=== PATIENT | male | born 1960 | race Caucasian/White ===

== ENCOUNTER 2020-03-25 09:10 | Outpatient (REF) | payer BC, SELFPAY ==
[2020-03-25 11:39] LABS: Alanine Aminotransferase 33 U/L (0-40); Albumin Level 4.4 g/dL (3.5-5.0); Alkaline Phosphatase 71 U/L (39-117); Anion Gap 13 (12-20); Aspartate Amino Transferase 20 U/L (5-37); Bilirubin Total 0.7 mg/dL (0.0-1.0); Blood Urea Nitrogen 21 mg/dL (9-16); Carbon Dioxide 27 mmol/L (22-29); Chloride 105 mmol/L (96-108); Cholesterol 205 mg/dL; Estimated Glomerular Filt Rate > 60; Glucose Fasting 94 mg/dL (60-99); HDL Cholesterol 47 mg/dL; LDL Cholesterol Calculated 133 mg/dl; Potassium 4.7 mmol/l (3.3-5.1); Sodium 140 mmol/L (135-145); Total Protein 7.3 g/dL (6.5-8.0); Triglycerides 128 mg/dL
[2020-03-25 11:59] LABS: TSH reflex Free T4 2.14 mIU/mL (0.32-4.0)
[2020-03-25 12:05] LABS: Prostate Specific Antigen 2.07 ng/mL (<0.05-4.0); Vitamin D 25-OH Total 26.1 ng/mL (>30)
== END 2020-03-25 09:11 | disposition home or self-care (01) ==
LOC: HO.HMGCLDS 09:10
PROVIDERS: PCP Nurse Practitioner Family; Visit Provider Nurse Practitioner Family
DX: E78.5 Hyperlipidemia, unspecified (principal); Z12.5 Encounter for screening for malignant neoplasm of prostate; Z13.1 Encounter for screening for diabetes mellitus; Z13.21 Encounter for screening for nutritional disorder; Z13.29 Encounter for screening for other suspected endocrine disorder
CPT/HCPCS: 36415; 80053; 80061; 82306; 84153; 84443

== ENCOUNTER → 2020-06-11 10:07 | Outpatient (BNVA) | payer BC, SELFPAY | PROVIDERS: PCP Nurse Practitioner Family; Referring Provider Nurse Practitioner Family; Visit Provider Urology | DX: Z76.89 Persons encountering health services in other specified circumstances (principal) ==

== ENCOUNTER → 2020-07-14 09:26 | Outpatient (BNVA) | payer BC, SELFPAY | PROVIDERS: Visit Provider Urology ==

== ENCOUNTER → 2021-02-11 11:20 | Outpatient (BNVA) | payer BC, SELFPAY | PROVIDERS: PCP Nurse Practitioner Family; Visit Provider Urology | DX: N40.1 Benign prostatic hyperplasia with lower urinary tract symptoms (principal); N13.8 Other obstructive and reflux uropathy; R35.1 Nocturia | CPT/HCPCS: 51798 ==

== ENCOUNTER 2021-02-22 11:22 | Outpatient (REF) | payer BC, SELFPAY ==
[2021-02-22 13:58] LABS: MANUAL DIFF FLAG NO
[2021-02-22 14:02] LABS: Basophils Percent Auto 0.5 % (0-2); Eosinophils Absolute Auto 0.1 X10*3/uL (0.0-0.4); Eosinophils Percent Auto 1.3 % (0-4); Hematocrit 45.9 % (42-52); Hemoglobin 15.3 g/dl (14.0-18.0); Imm Gran Abs Auto 0.01 X10*3/uL (0.00-0.03); Imm Gran Pct Auto 0.2 % (0.0-0.4); Lymphocytes Absolute Auto 2.4 X10*3/uL (1.2-4.9); Lymphocytes Percent Auto 38.4 % (20-40); Mean Corpuscular HGB Conc 33.3 g/dl (31.0-36.0); Mean Corpuscular Hemoglobin 31.7 pg (27.0-33.0); Mean Platelet Volume 9.3 fL (9.4-12.4); Monocytes Absolute Auto 0.6 X10*3/uL (0.1-1.2); Monocytes Percent Auto 9.4 % (2-11); Neutrophils Absolute Auto 3.1 X10*3/uL (2.0-8.3); Neutrophils Percent Auto 50.2 % (45-73); Platelet Count 220 X10*3/uL (160-400); Red Blood Count 4.83 X10*6/uL (4.60-5.80); Red Cell Distribution Width 13.2 % (11.0-16.0); White Blood Count 6.1 X10*3/uL (4.8-10.8)
[2021-02-22 14:51] LABS: Erythrocyte Sedimentation Rate 11 MM/HR (0-15)
[2021-02-22 14:55] LABS: Alanine Aminotransferase 23 U/L (0-40); Albumin Level 4.6 g/dL (3.5-5.0); Alkaline Phosphatase 70 U/L (39-117); Anion Gap 12 (12-20); Aspartate Amino Transferase 17 U/L (5-37); Bilirubin Total 0.7 mg/dL (0.0-1.0); Blood Urea Nitrogen 18 mg/dL (9-16); C Reactive Protein 0.31 mg/dL (< or = 0.50); Calcium 10.5 mg/dL (8.4-10.2); Carbon Dioxide 25 mmol/L (22-29); Chloride 107 mmol/L (96-108); Estimated Glomerular Filt Rate > 60; Glucose Random 90 mg/dL (60-115); Potassium 4.4 mmol/L (3.3-5.1); Sodium 140 mmol/L (135-145); TSH reflex Free T4 2.45 uIU/mL (0.32-4.0); Total Protein 7.4 g/dL (6.5-8.0); Vitamin D 25-OH Total 26.1 ng/mL (>30)
[2021-02-22 14:58] LABS: Folate 11.9 ng/mL (> or = 4.0); Vitamin B12 560 pg/mL (200-900)
[2021-02-22 15:14] LABS: Ferritin 584 ng/mL (20-250)
[2021-02-23 14:41] LABS: Lyme Abs Screen <0.90 index
[2021-02-24 10:41] LABS: Antibody to SS-A Antigen <1.0 NEG AI (<1.0 NEG); Antibody to SS-B Antigen <1.0 NEG AI (<1.0 NEG)
[2021-02-24 23:06] LABS: Anti Nuclear Antibody Screen POSITIVE (NEGATIVE)
[2021-02-27 13:32] LABS: Testosterone, Free 45.6 pg/mL (35.0-155.0); Testosterone, Total 306 ng/dL (250-1100)
[2021-03-01 22:52] LABS: Prot Elec - Albumin 4.3 g/dL (3.8-4.8); Prot Elec - Alpha1 0.3 g/dL (0.2-0.3); Prot Elec - Alpha2 0.7 g/dL (0.5-0.9); Prot Elec - Beta 1 0.5 g/dL (0.4-0.6); Prot Elec - Beta 2 0.4 g/dL (0.2-0.5); Prot Elec - Total Protein 7.2 g/dL (6.1-8.1)
[2021-03-02 14:55] LABS: IgA 328 mg/dL (70-320); IgG 1064 mg/dL (600-1540); IgM 67 mg/dL (50-300)
== END 2021-02-22 11:23 | disposition home or self-care (01) ==
LOC: HO.HMGCLDS 11:22
PROVIDERS: PCP Nurse Practitioner Family; Visit Provider Nurse Practitioner Family
DX: Z20.822 Contact with and (suspected) exposure to COVID-19 (principal); R53.83 Other fatigue
CPT/HCPCS: 80053; 82306; 82607; 82728; 82746; 82784; 84165; 84402; 84403; 84443; 85025; 85652; 86038; 86039; 86140; 86235; 86334; 86617; 86618; U0003; U0005

== ENCOUNTER 2021-02-25 13:10 | Outpatient (REF) | payer BC, SELFPAY | END 2021-02-25 13:11 | disposition home or self-care (01) | LOC: HO.HMGCLDS 13:10 | PROVIDERS: PCP Nurse Practitioner Family; Visit Provider Nurse Practitioner Family | DX: R79.89 Other specified abnormal findings of blood chemistry (principal) | CPT/HCPCS: 36415; 81256 ==

== ENCOUNTER → 2021-03-18 08:33 | Outpatient (REF) | payer BC, SELFPAY ==
--- NOTE | 2021-03-18 08:36 | CA_ITS ---
Transthoracic Echocardiogram Patient (Last, First, Middle): Edgardo Rios C Gender: Male Date of : 1960 Age: 60 Procedure Date: 03/18/2021 Procedure Type: Transthoracic Echocardiogram Location: OP Height: 182.88 cm Weight: 113.4 kg BSA: 2.34 m2 Heart Rate: bpm BP: 138 / 80 mmHg Supervisor Cell Efficiency: Referring MD: Hussein Stringer 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 Normal LV systolic function with grade 1 diastolic dysfunction 2. Normal cardiac valvular Doppler 3. Normal RV systolic pressure 4. No gross pericardial effusion Findings Left Ventricle Normal left ventricular size and systolic function. There is mildly increased left ventricular wall thickness. The visually estimated ejection fraction is between 55-60%. Regional wall motion abnormalities can not be excluded due to suboptimal endocardial definition. Spectral Doppler is indicative of an impaired relaxation filling pattern. E/E prime ratio is <8, consistent with normal filling pressures. Evidence suggests grade I (mild) diastolic dysfunction. Right Ventricle Normal right ventricular cavity size. Atria The left atrium is mildly dilated. There is lipomatous hypertrophy of the interatrial septum. There is no evidence of interatrial shunt. The right atrium was not well visualized. Aortic Valve The aortic valve was not well visualized. There is no aortic valve stenosis. There is no aortic valve regurgitation. Mitral Valve Likely normal mitral valve structure and function. There is trace mitral valve regurgitation. There is no mitral valve stenosis. Pulmonic Valve The pulmonic valve was not well visualized. Tricuspid Valve Likely normal tricuspid valve structure and function. There is trace tricuspid valve regurgitation. The right ventricular systolic pressure is normal. The right ventricular systolic pressure is 25 mmHg. Normal right atrial pressure. There is no evidence of pulmonary hypertension. Great Vessels All visible segments of the aorta are normal in size. The pulmonary artery was not well visualized. Venous The inferior vena cava is normal in size and collapses greater than 50% with inspiration. Pericardium/Pleural There is no evidence of pericardial effusion. Prior Study Comparison No previous study in the last 5 years for comparison Measurements 2D Linear Measurements IVSd: 1.17 0.6-0.9/0.6-1.0 cm LVIDd: 5.02 3.9-5.3/4.2-5.9 cm LVIDs: 3.16 2.0-3.6 cm LVPWd: 1.24 0.7-1.1 cm Ao Root: 3.28 2.1-3.5 cm LV Mass: 294.19 67-162/88-224 g LVOT Diam: 2.46 3.0+(-)1.3 cm Mitral Valve MV Pk E: 0.71 MV PK A: 0.74 MV Decel Time: 206.56 E/A: 0.96 Decel Lamar: 3.42 Aortic Valve AoV Pk Chris: 1.24 AoV Mn Chris: 0.88 AoV VTI: 0.29 AoV Pk Grad: 6.11 Aov Mn Grad: 3.52 LVOT LVOT Pk Chris: 0.95 LVOT Mn Chris: 0.61 LVOT VTI: 0.22 LVOT Pk Grad: 3.61 LVOT Mn Grad: 1.83 LVOT Diam: 2.46 LVOT Area: 4.74 Diastolic Function MV Pk E: 0.71 MV Pk A: 0.74 E/A: 0.96 Tricuspid Valve TR Pk Chris: 2.37 TR Pk Grad: 22.44 RA Press: 3.00 RVSP: 25.00 Great Vessels Aorta Ao Root-2D: 3.28 2.0-3.7 cm Ao Asc: 3.46 2.1-3.4 cm Pulmonary Valve PV Pk Chris: 1.05 Peak PV Grad: 4.42 Updated in Other Vendor System with Status of Final London Roy MD electronically signed on 03/18/2021 4:07:04 PM with status of Final
== END ==
LOC: HO.CARD 08:33
PROVIDERS: Visit Provider Nurse Practitioner Family
DX: R07.89 Other chest pain (principal); I45.3 Trifascicular block; I10 Essential (primary) hypertension
CPT/HCPCS: 93306

== ENCOUNTER → 2021-03-21 08:01 | Outpatient (REF) | payer BC, SELFPAY ==
--- NOTE | ~2021-03-21 | NM_ITS ---
Exercise Myocardial perfusion study Indication: Dizziness with risk factors to evaluate for myocardial ischemia Technique: The patient was brought in for an exercise perfusion study on 03/21/2021. Patient performed exercise as per Vadim protocol and was injected 40 mCi of sestamibi was given intravenously one target HR was achieved. Images were obtained using the SPECT gamma camera interlaced with the gating device. Images were obtained in supine position. Resting perfusion study was performed on 03/23/2021. Patient was administered 40 mCi of sestamibi intravenously at rest. Images were then obtained in supine position. Images obtained with and without CT attenuation. Total DLP 125 mGy-cm. Images were processed with the software and compared side to side in short axis, horizontal long axis and vertical long axis views. Findings: The stress perfusion study showed nonattenuated images show mildly reduced uptake in the inferior wall of the LV myocardium. Attenuation corrected images show normal uptake of radiotracer in all segments of LV. The gated study shows normal LV systolic function with calculated LVEF of 70%. LV cavity is normal in size. The gated study shows normal systolic wall thickening and contraction of all segments. There is no transient ischemic dilation. Resting study shows no change in perfusion pattern compared to stress perfusion study. Gating at rest reveals normal systolic wall motion with ejection fraction at 60%. The findings are consistent with normal myocardial perfusion. NM/NM cardiolite stress test Impression: 1. Normal myocardial perfusion 2. Gated LVEF is 70% 3. Transient ischemic dilatation not present Stress EKG is negative for ischemia
--- NOTE | 2021-03-21 08:00 | CA_ITS ---
Acquisition Time: 2021-03-21 08:11:57 Total Exercise Time: 00:07:08 Test Indications: Abnormal ECG Medications: SEE CHART Protocol: BENITA Max HR: 139 BPM 87% of Pred: 158 BPM Max BP: 188/090 mmHG Max Work Load: 8.7 METS Exercise stress test with exercise 7 min 8 sec of Benita protocol, without anginal symptoms, with isolated PVC, with normotensive response to exercise, without EKG changes meeting criteria for ischemia. Nuclear images pending. Test reviewed with Dr Snow. Referred By: Hussein Stringer Overread By: GER ROSENBERG
== END ==
LOC: HO.CARD 08:01
PROVIDERS: Visit Provider Nurse Practitioner Family
DX: R07.89 Other chest pain (principal); I10 Essential (primary) hypertension
CPT/HCPCS: 78452; 93017; A9500

== ENCOUNTER 2021-09-13 09:06 | Day surgery (SDC) | payer BC, SELFPAY ==
--- NOTE | 2021-09-12 10:54 | P.CONAN_ITS ---
Documented by User: Lana Dutta NP 09/12/21 10:57 HPI - Anesthesia Eval Consult details Narrative: 61yo M for ?Upper Endoscopy and Colonoscopy Cardiac optimized (seen for abnormal EKG) [facility] Active Problems Active Problems: All Active Problems (Updated 09/08/21 @ 16:07 by Jamila Jackson, RN) Physical exam (Acute) Nocturia more than twice per night (Acute) BPH w urinary obs/LUTS (Acute) Urinary hesitancy (Acute) Bilateral nephrolithiasis (Acute) Contact dermatitis (Acute) Chest discomfort (Acute) Anterior fascicular block, posterior fascicular block and incomplete right bundle branch block (RBBB) (Acute) Fatigue (Acute) Elevated ferritin (Chronic) Positive ALBERTO (antinuclear antibody) (Acute) Physical exam (Acute) Screening PSA (prostate specific antigen) (Acute) HTN (hypertension) (Acute) Past Medical History Medical History (Updated 09/08/21 @ 16:07 by Jamila Jackson RN) Barretts esophagus BPH (benign prostatic hyperplasia) Chronic lower back pain Dyslipidemia HTN (hypertension) Hyperparathyroidism Lung nodule Obesity Renal cyst Serum calcium elevated Trifascicular block Family History Family History Father ALS (amyotrophic lateral sclerosis) Dementia Mother High cholesterol HTN (hypertension) COPD (chronic obstructive pulmonary disease) Diverticulitis Maternal Grandmother Myocardial infarction Breast cancer Maternal Aunt Multiple sclerosis Paternal Aunt Multiple sclerosis Surgical History Surgical History Cyst of face Fusion of lumbar spine History of endoscopy History of sigmoidoscopy Social History Social History Household Members: Spouse Housing: House Alcohol intake: current Alcohol intake frequency: holidays/special occasions only Patient Tobacco Use Status: Never used Tobacco e-Cigarette/Vaping Use: Never Used Second Hand Smoke Exposure: No Use of substances other than those prescribed or required for medical reasons: No Are you DNR?: No Advance Directives: No Advance Directives Information Provided: Yes service: No Current occupational status: retired Meds Allergies Allergy/AdvReac Type Severity Reaction Status Date / Time penicillin V Allergy Severe Swelling Verified 09/13/21 09:32 pet dander Allergy Intermediate Itchy Eyes Uncoded 09/08/21 16:08 trees Allergy Intermediate Itching Uncoded 09/08/21 16:08 Home Medications Medication Instructions Recorded Confirmed Last Taken Type apple cider vinegar 09/08/21 Unknown History turmeric 09/08/21 09/08/21 Unknown History Exam Exam Date and Time: September 12, 2021 1054 Pertinent Lab Results Pertinent Lab Results: Laboratory Tests 02/22/21 02/22/21 11:35 11:35 WBC 6.1 Hgb 15.3 Hct 45.9 Plt Count 220 Sodium 140 Potassium 4.4 Chloride 107 Carbon Dioxide 25 BUN 18 H Creatinine 0.99 Narrative Narrative: EKG, per cardiac clearance note, showed anterior fascicular block, posterior fascicular, and incomplete RBBB ECHO 02/2021 Conclusions: - 1. Normal LV systolic function with grade 1 diastolic? dysfunction? 2. Normal cardiac valvular Doppler ? 3. Normal RV systolic pressure ? 4. No gross pericardial effusion ?? NM cardiolite stress test 02/2021 Impression: ? 1.? Normal myocardial perfusion 2.? Gated LVEF is 70% 3. Transient ischemic dilatation not present ? Stress EKG is negative for ischemia Assessment and Plan Assessment Anesthesia Assessment: Chart Reviewed Documented by User: Kj Greenberg MD 09/13/21 15:43 HPI - Anesthesia Eval Consult details Narrative: 61yo M for ?Upper Endoscopy and Colonoscopy Cardiac optimized (seen for abnormal EKG) [facility] Past Medical History Medical History (Updated 09/08/21 @ 16:07 by Jamila Jackson RN) Barretts esophagus BPH (benign prostatic hyperplasia) Chronic lower back pain Dyslipidemia HTN (hypertension) Hyperparathyroidism Lung nodule Obesity Renal cyst Serum calcium elevated Trifascicular block Family History Family History Father ALS (amyotrophic lateral sclerosis) Dementia Mother High cholesterol HTN (hypertension) COPD (chronic obstructive pulmonary disease) Diverticulitis Maternal Grandmother Myocardial infarction Breast cancer Maternal Aunt Multiple sclerosis Paternal Aunt Multiple sclerosis Family history of problems with anesthesia: No Surgical History Surgical History Cyst of face Fusion of lumbar spine History of endoscopy History of sigmoidoscopy History of Problems with Anesthesia: No Social History Social History Household Members: Spouse Housing: House Alcohol intake: current Alcohol intake frequency: holidays/special occasions only Patient Tobacco Use Status: Never used Tobacco e-Cigarette/Vaping Use: Never Used Second Hand Smoke Exposure: No Use of substances other than those prescribed or required for medical reasons: No Are you DNR?: No Advance Directives: No Advance Directives Information Provided: Yes service: No Current occupational status: retired Meds Allergies Allergy/AdvReac Type Severity Reaction Status Date / Time penicillin V Allergy Severe Swelling Verified 09/13/21 09:32 pet dander Allergy Intermediate Itchy Eyes Uncoded 09/08/21 16:08 trees Allergy Intermediate Itching Uncoded 09/08/21 16:08 Home Medications Medication Instructions Recorded Confirmed Last Taken Type apple cider vinegar 09/08/21 Unknown History turmeric 09/08/21 09/08/21 Unknown History Exam Airway Mallampati Class: I TM Dist: >3cm Neck ROM: Full Loose/Missing/Broken Teeth: Yes (Chipped teeth ) Heart: rrr Lungs: distant breath sounds Assessment and Plan Assessment Anesthesia Assessment: Anesthesia Plan Discussed Final Anesthetic Review Family History of Problems with Anesthesia: No History of Problems with Anesthesia: No NPO: Yes ASA Class: III Final Preanesthetic Review: No Changes in Pt Med Stat, Meds/Allgs Chart Reviewed, Consent Obtained/Reviewed and Anes Risks/Benef Reviewed Patient Risk: Intermediate Procedure Risk: Intermediate Anesthetic Plan Anesthetic Plan: MAC: Disposition: Standard PACU
[2021-09-13 09:34] VITALS: BMI 37.3
[2021-09-13 09:38] VITALS: BP 164/78; PULSE 95; RESP 16; TEMP 36.6; O2SAT 97
[2021-09-13] MEDS: Lactated Ringers 1,000 ML 100 ML IVCONT (10:21)
--- NOTE | 2021-09-13 10:59 | MHC.SHP ---
Pre-Procedural Eval Section A Date of Service: 09/13/21 Section B Chief Complaint: Castro's, Screening Details of Present Illness: see h&p no changes Relevant Family History (Specify if Yes): No Relevant Social History: None Present Medications: see Short Stay Collaborative assessment Medical History: No relevant PMH History of Previous Operations: No relevant previous surgery Allergies: Allergies Allergy/AdvReac Type Severity Reaction Status Date / Time penicillin V Allergy Severe Swelling Verified 09/13/21 09:32 pet dander Allergy Intermediate Itchy Eyes Uncoded 09/08/21 16:08 trees Allergy Intermediate Itching Uncoded 09/08/21 16:08 Review of Systems Sugical H&P ROS: Negative: Constitution, Cardiovascular, Respiratory, Neurological, Psychiatric, Hem-Onc, Allergic/Immunologic, Gastrointestinal, Genitourinary, Musculoskeletal, Integumentary, Endocrine and Eyes/Ears/Nose/Throat Exam Surgical H&P Exam: Normal: HEENT, Normal: Heart, Normal: Lungs, Normal: Extremities, Normal: Abdomen, Normal: Skin and Normal: Neurological Plan Diagnosis/Plan: Unchanged I have reviewed the history and physical and performed a pertinent physical examination on my patient. No changes have occurred unless specified.
[2021-09-13 12:06] VITALS: BP 104/51; PULSE 88; TEMP 36.3; O2SAT 97
--- NOTE | 2021-09-13 12:08 | PM.OP ---
Brief Operative Note Date of Service: 09/13/21 Pre-op diagnosis: barretts, screening Post-op diagnosis: same (colon polyp) Procedure: egd,colon Surgeon: Chava Thompson Anesthesia: MAC Was an Electrical Accessories Ii Assembler used for this Procedure?: No Estimated blood loss (mL): 5 Pathology: other (see req) Condition: stable Disposition: PACU
--- NOTE | 2021-09-13 12:12 | PC.NURSE ---
md rosa by bedside speaking to patient.
[2021-09-13 12:20] VITALS: BP 136/79; PULSE 98; TEMP 36.9; O2SAT 95
--- NOTE | 2021-09-13 12:24 | PC.NURSE ---
c/o left eye pain. light hurting eye. no pain prior to procedure. hard to open and light hurts patients eye. korey po challenge. call out to anesthesia. 12/02.
--- NOTE | 2021-09-13 12:26 | PC.NURSE ---
md le by bedside evaluating patients eye. redness noted to sclera.
[2021-09-13] MEDS: Tetracaine HCl/PF 0.5% Oph Sol 4 ML DROPS 3 DROP EYE-LEFT ×3 (12:33→12:36)
[2021-09-13 12:35] VITALS: PULSE 97; O2SAT 98
[2021-09-13] MEDS: Erythromycin Base 0.5% Oph Oin 1 GM TUBE 1 CM EYE-LEFT (12:39)
[2021-09-13 12:46] VITALS: BP 119/64; PULSE 87; O2SAT 96
--- NOTE | 2021-09-13 12:58 | OP_ITS ---
SURGEON: Chava Thompson MD INDICATIONS: 1. Castro esophagus. 2. Colon cancer screening. PREOPERATIVE DIAGNOSIS: POSTOPERATIVE DIAGNOSIS: PROCEDURE PERFORMED: Upper endoscopy with biopsy, colonoscopy to the terminal ileum with snare polypectomy. ESTIMATED BLOOD LOSS: COMPLICATIONS: ANESTHESIA: ASSISTANTS: SPECIMENS: MEDICATIONS: Monitored anesthesia care. DESCRIPTION OF PROCEDURE: History and physical were performed. The risks and benefits of the procedure were explained to the patient. An informed consent was obtained. The patient was placed in the left lateral decubitus position. The Olympus video gastroscope was introduced into the esophagus, stomach, and duodenum. Examination was performed and the scope was removed. He tolerated the procedure well. He was repositioned for colonoscopy. Digital rectal exam was performed and was found to be normal. The Olympus pediatric video colonoscope was introduced into the rectum and advanced to the cecum without difficulty. The cecum was identified by transillumination, palpation, and identification of the ileocecal valve. Examination was performed. The scope was removed. He tolerated the procedure well and was taken to recovery area in stable condition. FINDINGS: UPPER ENDOSCOPY: Esophagus: There was a 1 cm length of Castro esophagus with no raised lesions or ulcerated areas. Biopsies were obtained from the esophagus at 39 cm. Stomach: The stomach showed some mild nonspecific erythema. Biopsies were obtained from the antrum to evaluate for H pylori. Duodenum: The bulb and second portion were normal. Biopsies were obtained from the second portion. COLONOSCOPY: The terminal ileum was normal. This was biopsied. The visualized colonic mucosa was normal. In the hepatic flexure was a 6 mm polyp, which was removed with a cold snare and recovered via suction. Random sigmoid biopsies were obtained because of the patient's history of diarrhea. No other polyps were identified. The quality of prep was good. Retroflexed examination showed some moderate-sized internal hemorrhoids. IMPRESSION: 1. Castro esophagus. 2. Colon polyp. RECOMMENDATION: Follow up the biopsy results. MD ANTHONY Witt/AYAKA / [id number]
== END 2021-09-13 13:20 | disposition home or self-care (01) ==
PROVIDERS: PCP Nurse Practitioner Family; Visit Provider Internal Medicine Gastroenterology
PROC: (CPT 45385; principal; 2021-09-13 10:20)
DX: Z12.11 Encounter for screening for malignant neoplasm of colon (principal); D12.3 Benign neoplasm of transverse colon; K64.8 Other hemorrhoids; K22.70 Barrett's esophagus without dysplasia; K29.80 Duodenitis without bleeding; K21.9 Gastro-esophageal reflux disease without esophagitis; I10 Essential (primary) hypertension; R73.03 Prediabetes; E78.00 Pure hypercholesterolemia, unspecified; E83.119 Hemochromatosis, unspecified; R91.8 Other nonspecific abnormal finding of lung field; D89.9 Disorder involving the immune mechanism, unspecified; Z79.899 Other long term (current) drug therapy
CPT/HCPCS: 45385; 43239; 88305; 88342; J2370; J3010

== ENCOUNTER 2022-01-24 09:52 | Outpatient (REF) | payer BC, SELFPAY ==
--- NOTE | ~2022-01-24 | US_ITS ---
EXAMINATION: US RETROPERITONEAL LIMITED (RENAL ONLY) CLINICAL INFORMATION: Calculus of kidney. COMPARISON: US retroperitoneal limited (renal only) 05/26/2020. CT abdomen and pelvis without contrast 07/14/2019. Ultrasound abdomen complete 08/05/2015. TECHNIQUE: Real-time imaging of the kidneys. FINDINGS: RIGHT KIDNEY: 13.7 x 5.3 x 5.7 cm (SAG x AP x TRV). The kidney is normal in size, contour, and echogenicity. Renal cortical thickness is normal. No renal calculi or hydronephrosis. At the lower pole, a 1.5 cm maximal diameter anechoic, simple cyst is seen. LEFT KIDNEY: 14.6 x 6.0 x 5.7 cm (SAG x AP x TRV). The kidney is normal in size, contour, and echogenicity. Renal cortical thickness is normal. At the interpolar aspect, a 6 mm nonobstructing calculus is seen, with twinkle artifact. No hydronephrosis. At the lower pole, 2.0 cm, 2.2 cm and 1.2 cm in maximal diameter anechoic, simple cysts are seen. US/US renal BI IMPRESSION: 1. A 6 mm nonobstructing left renal calculus is seen. There is no right renal calculus. No hydronephrosis is noted bilaterally. 2. There are multiple benign, simple bilateral renal cysts. No imaging follow-up is recommended for these.
== END 2022-01-24 09:53 | disposition home or self-care (01) ==
LOC: HO.HMGCX 09:52
PROVIDERS: PCP Nurse Practitioner Family; Visit Provider Urology
DX: N20.0 Calculus of kidney (principal)
CPT/HCPCS: 76775

== ENCOUNTER 2022-02-10 11:29 | Outpatient (AMB) | payer BC, SELFPAY ==
--- NOTE | 2022-02-09 12:33 | A.OFFVIS_ITS ---
Intake Intake Visit Reasons: 1 year F/U US Results Intake Note: Patient is present for yearly ultrasound and pvr follow up post void residual: 56ml Alternative Dispute Resolution Mediator Required: No Accompanied by: Self / Same As Patient Allergies penicillin V Allergy (Severe, Verified 07/31/23 14:41) Swelling pet dander Allergy (Intermediate, Uncoded 07/31/23 14:41) Itchy Eyes trees Allergy (Intermediate, Uncoded 07/31/23 14:41) Itching HPI HPI Comments History of Present Illness Details Presley is a very pleasant male. He is seen for the following urologic conditions - lower urinary tract symptoms - nocturia - nephrolithiasis - renal cyst PVR 50 cc Emptying bladder with tamsulosin Continue with yearly review Lower Urinary Tract Symptoms: Current visit is for further evaluation of lower urinary tract symptoms particularly weakness of stream and nocturia Current treatment includes tamsulosin Prior treatments include none. Prostate Symptom Score Mild (0-8), Bother 2, PVR runs in range of 50-100 cc Symptoms include weak stream, nocturia (>2), and are stable - nocturia RN weakness of stream improving PSA Mar 2016 1.5 05/12 2.8. 05/14 2.1 Imaging - 06/13 US prostate 120 g with bladder wall thickening Testing at next visit will include Prostate Symptom Score, uroflow. Treatment plan continue alpha-sammy Nephrolithiasis Asymptomatic Imaging - 06/13 renal ultrasound - multiple 5 mm stones on right side, left side with 5 cm renal cysts multiple - 12/14 renal ultrasound 5 mm stone left side, multiple bilateral cysts PFSH Medical History Trifascicular block HTN (hypertension) Renal cyst Hyperparathyroidism Lung nodule Barretts esophagus BPH (benign prostatic hyperplasia) Dyslipidemia Serum calcium elevated Chronic lower back pain Obesity Surgical History History of sigmoidoscopy History of endoscopy Cyst of face Fusion of lumbar spine Family History Father ALS (amyotrophic lateral sclerosis) Dementia Mother High cholesterol HTN (hypertension) COPD (chronic obstructive pulmonary disease) Diverticulitis Maternal Grandmother Myocardial infarction Breast cancer Maternal Aunt Multiple sclerosis Paternal Aunt Multiple sclerosis Social History Household Members: Spouse Housing: House Do you presently have visiting nurse or other home services: No Alcohol intake: current Alcohol intake frequency: does not drink Patient Tobacco Use Status: Never used Tobacco e-Cigarette/Vaping Use: Never Used Second Hand Smoke Exposure: No service: No Current occupational status: retired Cognitive needs: No Hearing needs: No Vision needs: No Review of Systems Const Denies chills and Denies fever(s) Card Reports no additional complaints and Denies syncope Resp Denies cough GI Denies abdominal pain and Denies heartburn Reports as per HPI and Denies change in libido Neuro Denies syncope Psych Denies change in libido Endo Denies change in libido Physical Exam Const General: cooperative, healthy appearing, comfortable and no acute distress Orientation/consciousness: patient oriented x3 HEENT Face and sinus: Yes normal facial exam Mouth: moist mucous membranes Neck Neck: Yes normal visual inspection, Yes full ROM and Yes trachea midline Chest Chest palpation & inspection: normal inspection of the chest Resp Effort & Inspection: normal respiratory effort, able to speak in complete sentences and no respiratory distress GI Inspection: Yes normal to inspection Back/Spine/Pelvis Cervical Spine: normal cervical lordosis Thoracic/Lumbar Spine: thoracic and lumbar spine normal to inspection Skin General skin exam: no rashes or lesions noted Neuro General: patient oriented x3, gait normal, tone normal and moves all extremities Extrem General: Yes normal to inspection and Yes capillary refill normal Office Procedures Post Void Residual Post Residual Void Post Void Residual (PVR): 56 [id number] Void Residual by ultrasound Results AMB Urinalysis, Automated UA Leukoctes 0 Brandin/uL Last Edit by MALIKA Gongora on 02/10/22 11:57 UA Nitrite Negative Last Edit by MALIKA Gongora on 02/10/22 11:57 UA Urobilinogen 0.2 mg/dL Last Edit by MALIKA Gongora on 02/10/22 11:5 7 UA Protein 15 mg/dL Last Edit by MALIKA Gongora on 02/10/22 11:57 UA pH 6.0 Last Edit by MALIKA Gongora on 02/10/22 11:57 UA Blood 0 Srikanth/uL Last Edit by MALIKA Gongora on 02/10/22 11:57 UA Specific Woodrow 1.020 Last Edit by Elizabeth Mg, RMA on 02/10/22 11: 57 UA Ketone Negative Last Edit by Elizabeth Mg, RMA on 02/10/22 11:57 UA Bilirubin 0 mg/dL Last Edit by Elizabeth Mg, RMA on 02/10/22 11:57 UA Glucose 0 mg/dL Last Edit by Elizabeth Mg, RMA on 02/10/22 11:57 Results Reviewed Results Reviewed: Laboratory Last Values Urine pH (Auto) 6.0 02/10/22 11:56 Specific Woodrow (Auto) 1.020 02/10/22 11:56 Urine Protein (Auto) 15 mg/dL 02/10/22 11:56 Glucose (UA)(Auto) 0 mg/dL 02/10/22 11:56 Urine Ketones (Auto) Negative 02/10/22 11:56 Urine Blood (Auto) 0 Srikanth/uL 02/10/22 11:56 Urine Nitrite (Auto) Negative 02/10/22 11:56 Urine Bilirubin (Auto) 0 mg/dL 02/10/22 11:56 Urine Urobilinogen (Auto) 0.2 mg/dL 02/10/22 11:56 Leukocyte Esterase (Auto) 0 Brandin/uL 02/10/22 11:56 Assessment & Plan Assessment & Plan (1) Bilateral nephrolithiasis: Code(s): N20.0 - Calculus of kidney Plan 12 month follow-up ultrasound Orders: Orders AMB Urinalysis Automated 02/10/22 Z13.9 - Encounter for screening, unspecified AMB Post Void Residual by ultrasound 02/10/22 N40.1 - Benign prostatic hyperplasia with lower urinary tract symptoms, N13.8 - Other obstructive and reflux uropathy US renal BI 1 Year N20.0 - Calculus of kidney Patient Instructions: Imaging studies, laboratory and physical exam results were discussed and reviewed in detail. No major barriers to patient understanding were identified. An opportunity to ask questions regarding the treatment plan was provided. All questions were answered. The patient expressed understanding and agreement with the above treatment plan. The patient is aware they should contact our office by phone for worsening of their current condition or the appearance of new urologic symptoms. Compliance is encouraged with any medications and followup testing that is ordered. It is a privilege to participate in the urologic care of your patient. If you have any questions or concerns regarding treatment for the above conditions, or other urologic issues, please do not hesitate to contact me. The office telephone contact is [phone]. This note is constructed using voice recognition software. While every effort h as been made to ensure accuracy duralumin mechanic errors may have been included. Yours sincerely, Dr Som Bobo MD, [facility] - Urology Providers of Expert, Compassionate Care for the Genitourinary System Coding Level of Care Code Est Pt Level 4 (72084) Diagnoses Bilateral nephrolithiasis N20.0 CPT Codes Post Residual Void - PVR CPT Code: 25671-Ishz Void Residual by ultrasound ([id number])
== END 2022-02-10 12:29 | disposition home or self-care (01) ==
LOC: HO.HUSH 11:29
PROVIDERS: PCP Nurse Practitioner Family; Visit Provider Urology
DX: N20.0 Calculus of kidney (principal)
CPT/HCPCS: 99499

== ENCOUNTER → 2022-02-10 11:29 | Outpatient (BNVA) | payer BC, SELFPAY | PROVIDERS: PCP Nurse Practitioner Family; Visit Provider Urology | DX: N20.0 Calculus of kidney (principal) | CPT/HCPCS: 51798 ==

== ENCOUNTER 2022-02-17 09:30 | Outpatient (REF) | payer BC, SELFPAY ==
[2022-02-17 12:16] LABS: Alanine Aminotransferase 25 U/L (0-40); Albumin Level 4.5 g/dL (3.5-5.0); Alkaline Phosphatase 73 U/L (39-117); Anion Gap 14 (12-20); Aspartate Amino Transferase 16 U/L (5-37); Bilirubin Total 0.5 mg/dL (0.0-1.0); Blood Urea Nitrogen 26 mg/dL (9-16); Calcium 10.3 mg/dL (8.4-10.2); Carbon Dioxide 26 mmol/L (22-29); Chloride 106 mmol/L (96-108); Cholesterol 181 mg/dL; Estimated Glomerular Filt Rate > 60; Glucose Fasting 101 mg/dL (60-99); HDL Cholesterol 48 mg/dL; LDL Cholesterol Calculated 116 mg/dl; Potassium 5.1 mmol/L (3.3-5.1); Sodium 141 mmol/L (135-145); Total Protein 7.5 g/dL (6.5-8.0); Triglycerides 88 mg/dL
[2022-02-17 12:20] LABS: Prostate Specific Antigen Scr 2.56 ng/mL (<0.05-4.0)
== END 2022-02-17 09:31 | disposition home or self-care (01) ==
LOC: HO.HMGCLDS 09:30
PROVIDERS: PCP Nurse Practitioner Family; Visit Provider Nurse Practitioner Family
DX: Z00.00 Encounter for general adult medical examination without abnormal findings (principal); Z12.5 Encounter for screening for malignant neoplasm of prostate
CPT/HCPCS: 36415; 80053; 80061; 84153; 84443

== ENCOUNTER 2022-08-17 09:05 | Outpatient (REF) | payer BC, SELFPAY ==
[2022-08-17 11:12] LABS: MANUAL DIFF FLAG NO
[2022-08-17 11:25] LABS: Basophils Percent Auto 0.6 % (0-2); Eosinophils Absolute Auto 0.1 X10*3/uL (0.0-0.4); Eosinophils Percent Auto 1.1 % (0-4); Hematocrit 49.3 % (42.0-52.0); Hemoglobin 16.3 g/dl (14.0-18.0); Imm Gran Abs Auto 0.02 X10*3/uL (0.00-0.03); Imm Gran Pct Auto 0.4 % (0.0-0.4); Lymphocytes Absolute Auto 1.8 X10*3/uL (1.2-4.9); Lymphocytes Percent Auto 33.6 % (20-40); Mean Corpuscular HGB Conc 33.1 g/dl (31.0-36.0); Mean Corpuscular Hemoglobin 31.3 pg (27.0-33.0); Mean Corpuscular Volume 94.8 fL (80.0-98.0); Mean Platelet Volume 8.7 fL (9.4-12.4); Monocytes Absolute Auto 0.5 X10*3/uL (0.1-1.2); Monocytes Percent Auto 9.9 % (2-11); Neutrophils Percent Auto 54.4 % (45-73); Platelet Count 225 X10*3/uL (160-400); Red Cell Distribution Width 13.2 % (11.0-16.0); White Blood Count 5.4 X10*3/uL (4.8-10.8)
[2022-08-17 11:32] LABS: Appearance Urine Clear; Color Urine Yellow; Glucose Urine UA Negative (Negative); Leukocyte Esterase Urine Negative (Negative); Nitrite Urine Negative (Negative); Specific Gravity - Urine 1.015 (1.005-1.025); Urine Blood Negative (Negative); Urine Ketones Negative (Negative); Urine Protein Negative (Neg-Trace)
[2022-08-17 12:02] LABS: Alanine Aminotransferase 31 U/L (0-40); Albumin Level 4.4 g/dL (3.5-5.0); Alkaline Phosphatase 69 U/L (39-117); Anion Gap 14 (12-20); Aspartate Amino Transferase 18 U/L (5-37); Bilirubin Total 0.8 mg/dL (0.0-1.0); Blood Urea Nitrogen 20 mg/dL (9-16); Calcium 10.5 mg/dL (8.4-10.2); Carbon Dioxide 27 mmol/L (22-29); Chloride 105 mmol/L (96-108); Cholesterol 231 mg/dL; Estimated Glomerular Filt Rate > 60; Glucose Fasting 102 mg/dL (60-99); HDL Cholesterol 49 mg/dL; LDL Cholesterol Calculated 161 mg/dl; Potassium 5.1 mmol/L (3.3-5.1); Sodium 141 mmol/L (135-145); Total Protein 7.2 g/dL (6.5-8.0); Triglycerides 108 mg/dL
[2022-08-17 12:06] LABS: TSH reflex Free T4 2.88 uIU/mL (0.32-4.0)
== END 2022-08-17 09:06 | disposition home or self-care (01) ==
LOC: HO.HMGCLDS 09:05
PROVIDERS: PCP Nurse Practitioner Family; Visit Provider Nurse Practitioner Family
DX: Z00.00 Encounter for general adult medical examination without abnormal findings (principal)
CPT/HCPCS: 36415; 80053; 80061; 81003; 84443; 85025

== ENCOUNTER 2023-01-10 10:57 | Outpatient (REF) | payer BC, SELFPAY ==
[2023-01-10 13:03] LABS: MANUAL DIFF FLAG NO
[2023-01-10 13:11] LABS: Appearance Urine Clear; Color Urine Yellow; Glucose Urine UA Negative (Negative); Leukocyte Esterase Urine Negative (Negative); Nitrite Urine Negative (Negative); UMIC TRIGGER UACC YES; Urine Blood Trace (Negative); Urine Ketones Negative (Negative); Urine Protein Negative (Neg-Trace)
[2023-01-10 13:16] LABS: Bacteria Urine None Seen (None Seen); Hyaline Casts Urine 0-2 /LPF (0-2); WBC Urine 0-5 /HPF (0-5)
[2023-01-10 13:30] LABS: Basophils Percent Auto 0.5 % (0-2); Eosinophils Absolute Auto 0.1 X10*3/uL (0.0-0.4); Eosinophils Percent Auto 1.7 % (0-4); Hematocrit 49.1 % (42.0-52.0); Imm Gran Abs Auto 0.01 X10*3/uL (0.00-0.03); Imm Gran Pct Auto 0.2 % (0.0-0.4); Lymphocytes Absolute Auto 2.3 X10*3/uL (1.2-4.9); Mean Corpuscular HGB Conc 32.6 g/dl (31.0-36.0); Mean Corpuscular Hemoglobin 31.3 pg (27.0-33.0); Mean Corpuscular Volume 96.1 fL (80.0-98.0); Mean Platelet Volume 8.9 fL (9.4-12.4); Monocytes Absolute Auto 0.7 X10*3/uL (0.1-1.2); Neutrophils Absolute Auto 3.3 x10*3/uL (2.0-8.3); Neutrophils Percent Auto 50.6 % (45-73); Platelet Count 220 X10*3/uL (160-400); Red Blood Count 5.11 X10*6/uL (4.60-5.80); White Blood Count 6.4 X10*3/uL (4.8-10.8)
[2023-01-10 14:11] LABS: Prostate Specific Antigen Scr 2.83 ng/mL (<0.05-4.0)
[2023-01-11 02:16] LABS: Alanine Aminotransferase 27 U/L (0-40); Albumin Level 4.6 g/dL (3.5-5.0); Alkaline Phosphatase 73 U/L (39-117); Anion Gap 10 (12-20); Aspartate Amino Transferase 19 U/L (5-37); Bilirubin Total 0.7 mg/dL (0.0-1.0); Blood Urea Nitrogen 18 mg/dL (9-16); Calcium 10.5 mg/dL (8.4-10.2); Carbon Dioxide 27 mmol/L (22-29); Chloride 107 mmol/L (96-108); Cholesterol 168 mg/dL; Estimated Glomerular Filt Rate > 60; Glucose Fasting 90 mg/dL (60-99); HDL Cholesterol 46 mg/dL; LDL Cholesterol Calculated 106 mg/dl; Potassium 4.4 mmol/L (3.3-5.1); Sodium 140 mmol/L (135-145); TSH reflex Free T4 2.74 uIU/mL (0.32-4.0); Total Protein 7.7 g/dL (6.5-8.0); Triglycerides 81 mg/dL
== END 2023-01-10 10:58 | disposition home or self-care (01) ==
LOC: HO.HMGCLDS 10:57
PROVIDERS: PCP Nurse Practitioner Family; Visit Provider Nurse Practitioner Family
DX: Z00.00 Encounter for general adult medical examination without abnormal findings (principal); Z12.5 Encounter for screening for malignant neoplasm of prostate; I10 Essential (primary) hypertension
CPT/HCPCS: 36415; 80053; 80061; 81001; 84153; 84443; 85025; 86900; 86901

== ENCOUNTER 2023-01-22 11:15 | Outpatient (AMB) | payer BC, SELFPAY ==
[2023-01-22 11:30] VITALS: BP 132/86; PULSE 84; O2SAT 96; BMI 37.3
--- NOTE | 2023-01-22 11:30 | A.OFFPC_ITS ---
Vital Signs 01/22/23 11:30 Height 5 ft 10 in Weight 260 lb BMI 37.3 BP 132/86 Blood Pressure Location Rt brachial Position Sitting Pulse 84 Pulse Source Pulse Oximeter Pulse Oximetry (%) 96 Oxygen Delivery Method Room Air Intake Visit Reasons: 6 month follow up Allergies penicillin V Allergy (Severe, Verified 01/22/23 11:32) Swelling pet dander Allergy (Intermediate, Uncoded 01/22/23 11:32) Itchy Eyes trees Allergy (Intermediate, Uncoded 01/22/23 11:32) Itching Medication List - Last Reconciled 01/22/23 by OZ Baez losartan 50 mg PO DAILY pravastatin 40 mg PO DAILY 90 days [turmeric ] Tobacco use date assessed: 01/22/23 Dental Screening Dental Screen Date: 01/22/23 Did you have a dental visit in the last 12 months?: No Did you have a dental problem in the last 6 months where you did not have access to dental care?: No Was dental information given to patient?: Patient has dentist HPI 6 month follow up HPI Details Pt reports dark urine. Hx of kidney stones. ? micro hem. Will order UA. Pt is following up with urology. Encouraged pt to drink more water. Denies fever, chills, and hematuria. Pt reports multiple tick bites (one hiking event in August). He reports that the ticks were only on for 7 hours. He was given a 21-day course of doxy. Still reports a draining site to his umbilicus (a tick bite site). Will order tick testing and refer to ID for further evaluation. Right knee pain: occurred approx 4 months now after climbing up a inclined plane, i felt a pop , further describes pain, especially to lateral right knee (? meniscal tear), ordering XR, most likely will order a MRI in the near future, pt is currently wearing a brace. Pt denies any current fevers, chills, SOB, CP. [facility] Medical History Barretts esophagus BPH (benign prostatic hyperplasia) Chronic lower back pain Dyslipidemia HTN (hypertension) Hyperparathyroidism Lung nodule Obesity Renal cyst Serum calcium elevated Trifascicular block Surgical History Cyst of face Fusion of lumbar spine History of endoscopy History of sigmoidoscopy Family History Father ALS (amyotrophic lateral sclerosis) Dementia Mother High cholesterol HTN (hypertension) COPD (chronic obstructive pulmonary disease) Diverticulitis Maternal Grandmother Myocardial infarction Breast cancer Maternal Aunt Multiple sclerosis Paternal Aunt Multiple sclerosis Social History Household Members: Spouse Housing: House Alcohol intake: current Alcohol intake frequency: holidays/special occasions only Patient Tobacco Use Status: Never used Tobacco e-Cigarette/Vaping Use: Never Used Second Hand Smoke Exposure: No service: No Current occupational status: retired Cognitive needs: No Hearing needs: No Vision needs: No Questionnaire Thrive Questionnaire Date Thrive assessed: 08/02/21 SAHIL-7 AMB Questionnaire SAHIL-7 Date SAHIL - 7 assessed: 08/02/21 Source: Developed by Drs. Edi Hernandez, Lyubov Pedraza, Morro Post and colleagues, with an educational samanta from [employer]. Review of Systems Const Reports as per HPI Physical exam (Primary Care) Vital Signs: Last Vital Signs Pulse 84 01/22/23 11:30 BP 132/86 01/22/23 11:30 Pulse Ox 96 01/22/23 11:30 Oxygen Delivery Method Room Air 01/22/23 11:30 BMI result Body Mass Index 37.3 Tobacco/Smoking Status: Tobacco use Status Tobacco use date assessed 01/22/23 01/22/23 11:35 Patient Tobacco Use Status Never used Tobacco 01/22/23 11:35 e-Cigarette/Vaping Use Never Used 01/22/23 11:35 Thrive Assessment: Date of Thrive Assessment Date Thrive assessed 08/02/21 01/22/23 11:35 Const General: cooperative Nutritional Appearance: obese Orientation/consciousness: patient oriented x3 Resp Effort & Inspection: normal respiratory effort Auscultation: clear to auscultation bilaterally Cardio Rate: regular rate Rhythm: regular rhythm Heart sounds: S1 normal heart sound present and S2 normal heart sound present Skin Other: draining site to umbilicus, reddish/scabbed, draining small amount of tannish pus. No tenderness with touch Neuro General: patient oriented x3 Extrem Right lower extremity: knee (neg lachmans, + MCMURRAYS right knee, extension and flexion without difficu) Psych Appearance: grossly normal Mental Status: mental status grossly normal Speech and movement: Normal speech and movement present Affect: normal affect Attitude: cooperative Thought process: Normal thought process present Thought content: Normal thought content present Insight: Good insight present (Psych) Judgement: Good judgement present (Psych) Assessment and Plan Assessment & Plan (1) Microscopic hematuria: Code(s): R31.29 - Other microscopic hematuria Plan: see urology, repeat UA with cytology ordered, though most likely from kidney stones (2) Tick bite of abdomen: Code(s): S30.861A - Insect bite (nonvenomous) of abdominal wall, initial encounter; W57.XXXA - Bitten or stung by nonvenomous insect and other nonvenomous arthropods, initial encounter (3) Right knee pain: Code(s): M25.561 - Pain in right knee Plan: XR (4) Skin infection: Code(s): L08.9 - Local infection of the skin and subcutaneous tissue, unspecified Plan The patient agreed to the use of a medical and scientific illustrator for this encounter. Scribed for EMMANUEL Krause- by Thao Multani medical and scientific illustrator, on 01/22/2023 at 11:45 EST. Orders: Orders UA CC w/rflx Micro + Cult Today R31.29 - Other microscopic hematuria Tick-borne Disease Molecular Today S30.861A - Insect bite (nonvenomous) of abdominal wall, initial encounter, W57.XXXA - Bitten or stung by nonvenomous insect and other nonvenomous arthropods, initial encounter XR knee RT 2V Today M25.561 - Pain in right knee Referrals Infectious Disease Referral S30.861A - Insect bite (nonvenomous) of abdominal wall, initial encounter, W57.XXXA - Bitten or stung by nonvenomous insect and o ther nonvenomous arthropods, initial encounter Medications: New sulfamethoxazole-trimethoprim 800-160 mg (Bactrim DS) 1 tab PO BID 4 days 8 tabs 0RF Coding Level of Care Code Est Pt Level 3 (49598) Diagnoses Microscopic hematuria R31.29 Tick bite of abdomen S30.861A; W57.XXXA Right knee pain M25.561 Skin infection L08.9
== END 2023-01-22 12:40 | disposition home or self-care (01) ==
PROVIDERS: PCP Nurse Practitioner Family; Visit Provider Nurse Practitioner Family
DX: R31.29 Other microscopic hematuria (principal); S30.861A Insect bite (nonvenomous) of abdominal wall, initial encounter; W57.XXXA Bitten or stung by nonvenomous insect and other nonvenomous arthropods, initial encounter; M25.561 Pain in right knee; L08.9 Local infection of the skin and subcutaneous tissue, unspecified
CPT/HCPCS: 99213

== ENCOUNTER 2023-01-23 11:14 | Outpatient (REF) | payer BC, SELFPAY ==
--- NOTE | ~2023-01-23 | XR_ITS ---
EXAMINATION: XR KNEE, RIGHT CLINICAL INFORMATION: Right knee pain COMPARISON: None available. TECHNIQUE: Four views of the right knee. FINDINGS: No fracture or joint effusion. Alignment is anatomic. Joint spaces are maintained. No abnormal soft tissue calcification. XR/XR knee RT 2V IMPRESSION: Normal right knee.
--- NOTE | ~2023-01-23 | US_ITS ---
EXAMINATION: US RETROPERITONEAL LIMITED (RENAL ONLY) CLINICAL INFORMATION: Calculus of kidney. COMPARISON: Ultrasound retroperitoneal limited (renal only) 01/24/2022 and 05/26/2020. TECHNIQUE: Real-time imaging of the kidneys. FINDINGS: RIGHT KIDNEY: 13.8 x 4.6 x 6.0 cm (SAG x AP x TRV). The kidney is normal in size, contour, and echogenicity. Renal cortical thickness is normal. No renal calculi or hydronephrosis. 1.7 cm simple cyst in the lower pole. Follow-up imaging is recommended. LEFT KIDNEY: 15.2 x 6.2 x 5.2 cm (SAG x AP x TRV). The kidney is normal in size, contour, and echogenicity. Renal cortical thickness is normal. No renal calculi or hydronephrosis. There are multiple simple cysts, the largest measuring 2.6 cm in the lower pole. No follow-up imaging is recommended. US/US renal BI IMPRESSION: No nephrolithiasis or hydronephrosis.
== END 2023-01-23 11:15 | disposition home or self-care (01) ==
LOC: HO.US 11:14
PROVIDERS: PCP Nurse Practitioner Family; Visit Provider Urology
DX: N20.0 Calculus of kidney (principal); M25.561 Pain in right knee
CPT/HCPCS: 73560; 76775

== ENCOUNTER 2023-02-08 10:31 | Outpatient (AMB) | payer BC, SELFPAY ==
--- NOTE | 2023-02-08 10:41 | A.OFFVIS_ITS ---
Intake Intake Visit Reasons: 1Y US(set) Intake Note: Patient is present for Follow Up Ultrasound/PVR Urology Med: None Antibiotic Allergy: Penicllin Blood Thinner: None Pharmacy: [facility] PVR:0 Allergies penicillin V Allergy (Severe, Verified 02/08/23 10:42) Swelling pet dander Allergy (Intermediate, Uncoded 02/08/23 10:42) Itchy Eyes trees Allergy (Intermediate, Uncoded 02/08/23 10:42) Itching HPI HPI Comments History of Present Illness Details Presley is a very pleasant male. He is seen for the following urologic conditions - lower urinary tract symptoms - nocturia - nephrolithiasis - renal cyst PVR 0 cc Ultrasound no evidence of stones, stable cyst Continued effective emptying with tamsulosin Yearly follow-up Lower Urinary Tract Symptoms: Current visit is for further evaluation of lower urinary tract symptoms particularly weakness of stream and nocturia Current treatment includes tamsulosin Prior treatments include none. Prostate Symptom Score Mild (0-8), Bother 2, PVR runs in range of 50-100 cc Symptoms include weak stream, nocturia (>2), and are stable - nocturia RN weakness of stream improving PSA Mar 2016 1.5, 05/12 2.8, 05/14 2.1, 01/14 2.8 Imaging - 06/13 US prostate 120 g with bladder wall thickening Testing at next visit will include Prostate Symptom Score, uroflow. Treatment plan continue alpha-sammy Nephrolithiasis Asymptomatic Imaging - 06/13 renal ultrasound - multiple 5 mm stones on right side, left side with 5 cm renal cysts multiple - 12/14 renal ultrasound 5 mm stone left side, multiple bilateral cysts - 01/14 renal ultrasound no evidence of stones, multiple bilateral stable cysts [facility] Medical History Barretts esophagus BPH (benign prostatic hyperplasia) Chronic lower back pain Dyslipidemia HTN (hypertension) Hyperparathyroidism Lung nodule Obesity Renal cyst Serum calcium elevated Trifascicular block Surgical History Cyst of face Fusion of lumbar spine History of endoscopy History of sigmoidoscopy Family History Father ALS (amyotrophic lateral sclerosis) Dementia Mother High cholesterol HTN (hypertension) COPD (chronic obstructive pulmonary disease) Diverticulitis Maternal Grandmother Myocardial infarction Breast cancer Maternal Aunt Multiple sclerosis Paternal Aunt Multiple sclerosis Social History Household Members: Spouse Housing: House Alcohol intake: current Alcohol intake frequency: holidays/special occasions only Patient Tobacco Use Status: Never used Tobacco e-Cigarette/Vaping Use: Never Used Second Hand Smoke Exposure: No service: No Current occupational status: retired Cognitive needs: No Hearing needs: No Vision needs: No Review of Systems Const Denies chills and Denies fever(s) Card Reports no additional complaints and Denies syncope Resp Denies cough GI Denies abdominal pain and Denies heartburn Reports as per HPI and Denies change in libido Neuro Denies syncope Psych Denies change in libido Endo Denies change in libido Physical Exam Const General: cooperative, healthy appearing, comfortable and no acute distress Orientation/consciousness: patient oriented x3 HEENT Face and sinus: Yes normal facial exam Mouth: moist mucous membranes Neck Neck: Yes normal visual inspection, Yes full ROM and Yes trachea midline Chest Chest palpation & inspection: normal inspection of the chest Resp Effort & Inspection: normal respiratory effort, able to speak in complete sentences and no respiratory distress GI Inspection: Yes normal to inspection Back/Spine/Pelvis Cervical Spine: normal cervical lordosis Thoracic/Lumbar Spine: thoracic and lumbar spine normal to inspection Skin General skin exam: no rashes or lesions noted Neuro General: patient oriented x3, gait normal, tone normal and moves all extremities Extrem General: Yes normal to inspection and Yes capillary refill normal Office Procedures Post Void Residual Post Residual Void Post Void Residual (PVR): 0 [id number] Void Residual by ultrasound Assessment & Plan Assessment & Plan (1) Nocturia more than twice per night: Code(s): R35.1 - Nocturia (2) BPH w urinary obs/LUTS: Code(s): N40.1 - Benign prostatic hyperplasia with lower urinary tract symptoms; N13.8 - Other obstructive and reflux uropathy (3) Bilateral nephrolithiasis: Code(s): N20.0 - Calculus of kidney Plan One year follow-up ultrasound Orders: Orders US renal BI 364 Days N20.0 - Calculus of kidney AMB Post Void Residual by ultrasound Today N13.8 - Other obstructive and reflux uropathy, N40.1 - Benign prostatic hyperplasia with lower urinary tract symptoms Patient Instructions: Imaging studies, laboratory and physical exam results were discussed and reviewed in detail. No major barriers to patient understanding were identified. An opportunity to ask questions regarding the treatment plan was provided. All questions were answered. The patient expressed understanding and agreement with the above treatment plan. The patient is aware they should contact our office by phone for worsening of their current condition or the appearance of new urologic symptoms. Compliance is encouraged with any medications and followup testing that is ordered. It is a privilege to participate in the urologic care of your patient. If you have any questions or concerns regarding treatment for the above conditions, or other urologic issues, please do not hesitate to contact me. The office telephone contact is [phone]. This note is constructed using voice recognition software. While every effort has been made to ensure accuracy electrical maintenance engineer errors may have been included. Yours sincerely, Dr Som Bobo MD, [facility] - Urology Providers of Expert, Compassionate Care for the Genitourinary System Coding Level of Care Code Est Pt Level 4 (68890) Diagnoses Nocturia more than twice per night R35.1 BPH w urinary obs/LUTS N40.1; N13.8 Bilateral nephrolithiasis N20.0 CPT Codes Post Residual Void - PVR CPT Code: 35470-Atdo Void Residual by ultrasound ([id number])
== END 2023-02-08 11:33 | disposition home or self-care (01) ==
PROVIDERS: PCP Nurse Practitioner Family; Visit Provider Urology
DX: N40.1 Benign prostatic hyperplasia with lower urinary tract symptoms (principal); R35.1 Nocturia; N13.8 Other obstructive and reflux uropathy; N20.0 Calculus of kidney
CPT/HCPCS: 99213

== ENCOUNTER → 2023-02-08 10:31 | Outpatient (BNVA) | payer BC, SELFPAY | PROVIDERS: Visit Provider Urology | DX: N40.1 Benign prostatic hyperplasia with lower urinary tract symptoms (principal); N13.8 Other obstructive and reflux uropathy; R35.1 Nocturia; N28.1 Cyst of kidney, acquired | CPT/HCPCS: 51798 ==

== ENCOUNTER 2023-03-23 11:42 | Outpatient (AMB) | payer BC, SELFPAY ==
--- NOTE | 2023-03-23 11:49 | MHC.OFFVIS ---
Intake Intake Visit Reasons: p Intake Note: Patient is Present for Telephone Follow Up Urology Med: None Antibiotic Allergy: Penicllin Blood Thinner: None Pharmacy: [facility] Allergies penicillin V Allergy (Severe, Verified 03/23/23 11:52) Swelling pet dander Allergy (Intermediate, Uncoded 03/23/23 11:52) Itchy Eyes trees Allergy (Intermediate, Uncoded 03/23/23 11:52) Itching Medication List - Last Reconciled 03/23/23 by Som Bobo MD finasteride 5 mg PO DAILY 90 days losartan 50 mg PO DAILY pravastatin 40 mg PO DAILY 90 days sulfamethoxazole-trimethoprim 800-160 mg (Bactrim DS) 1 tab PO BID 4 days [turmeric ] HPI HPI Comments History of Present Illness Details Presley is a very pleasant male. He is seen for the following urologic conditions - lower urinary tract symptoms - nocturia - nephrolithiasis - renal cyst Telemedicine Evaluation 15 min Consultation [employer] Video attempted Recent presentation to [facility] with gross hematuria CT scan showed bladder stones with enlarged prostate Recommend initiation of finasteride Followed up with procedure for bladder stone removal and prostate procedure Lower Urinary Tract Symptoms: Current visit is for further evaluation of lower urinary tract symptoms particularly weakness of stream and nocturia Current treatment includes tamsulosin Prior treatments include none. Prostate Symptom Score Mild (0-8), Bother 2, PVR runs in range of 50-100 cc Symptoms include weak stream, nocturia (>2), and are stable - nocturia RN weakness of stream improving PSA Mar 2016 1.5, 05/12 2.8, 05/14 2.1, 01/14 2.8 Imaging - 06/13 US prostate 120 g with bladder wall thickening Testing at next visit will include Prostate Symptom Score, uroflow. Treatment plan continue alpha-sammy Nephrolithiasis Asymptomatic Imaging - 06/13 renal ultrasound - multiple 5 mm stones on right side, left side with 5 cm renal cysts multiple - 12/14 renal ultrasound 5 mm stone left side, multiple bilateral cysts - 01/14 renal ultrasound no evidence of stones, multiple bilateral stable cysts PFSH Medical History Trifascicular block HTN (hypertension) Renal cyst Hyperparathyroidism Lung nodule Barretts esophagus BPH (benign prostatic hyperplasia) Dyslipidemia Serum calcium elevated Chronic lower back pain Obesity Surgical History History of sigmoidoscopy History of endoscopy Cyst of face Fusion of lumbar spine Family History Father ALS (amyotrophic lateral sclerosis) Dementia Mother High cholesterol HTN (hypertension) COPD (chronic obstructive pulmonary disease) Diverticulitis Maternal Grandmother Myocardial infarction Breast cancer Maternal Aunt Multiple sclerosis Paternal Aunt Multiple sclerosis Social History Household Members: Spouse Housing: House Alcohol intake: current Alcohol intake frequency: holidays/special occasions only Patient Tobacco Use Status: Never used Tobacco e-Cigarette/Vaping Use: Never Used Second Hand Smoke Exposure: No service: No Current occupational status: retired Cognitive needs: No Hearing needs: No Vision needs: No Review of Systems Const All systems reviewed & are unremarkable except as noted in HPI and below Reports no additional complaints Resp Reports no additional complaints GI Reports no additional complaints Reports as per HPI Musc Reports no additional complaints Physical Exam Telemedicine evaluation Appropriate responses Regular breathing rate and rhythm HEENT Head: Yes normal to inspection Ears: hearing grossly normal bilaterally Eyes General: appearance normal, both eyes and all related structures Neck Neck: Yes normal visual inspection Chest Chest palpation & inspection: normal inspection of the chest Resp Effort & Inspection: normal respiratory effort and able to speak in complete sentences Assessment & Plan Assessment & Plan (1) Microscopic hematuria: Code(s): R31.29 - Other microscopic hematuria (2) BPH w urinary obs/LUTS: Code(s): N40.1 - Benign prostatic hyperplasia with lower urinary tract symptoms; N13.8 - Other obstructive and reflux uropathy Plan We discussed the nature of the decision and reasonable options for performing a prostate intervention. Interventions include TURP, GreenLight laser enucleation of the prostate, GreenLight laser ablation of the prostate, transurethral incision of the prostate, and I-Tend prostate procedure. Options such as medical therapy were discussed. The relative uncertainties and benefits related to each alternate procedure were adequately discussed. General surgical risks including, but not limited to, pain, bleeding, infection, myocardial infarction, pulmonary embolus, deep vein thrombosis and cerebrovascular accident which may result in further hospitalization were discussed. Full disclosure of the procedure as well as all major risks, benefits and complications were discussed including but not limited to damage to the urethra or bladder neck, recurrent BPH, retrograde ejaculation, bladder infection, urge, de ahmet frequency, incomplete emptying, dysuria, remote chance of erectile dysfunction, epididymitis, and meatal stenosis. The success rate of the procedure was discussed. Success of the procedure in the short-term does not necessarily guarantee that long-term success will be maintained. Suitable follow up will need to be maintained. The patient showed understanding of discussion. An opportunity was provided for questions to be answered and wishes to proceed with the following procedure. - GreenLight laser with removal of bladder stone Medications: New finasteride 5 mg PO DAILY 90 tabs 0RF 90 days N40.1 - Benign prostatic hyperplasia with lower urinary tract symptoms, N13.8 - Other obstructive and reflux uropathy, N32.0 - Bladder-neck obstruction Patient Instructions: Imaging studies, laboratory and physical exam results were discussed and reviewed in detail. No major barriers to patient understanding were identified. An opportunity to ask questions regarding the treatment plan was provided. All questions were answered. The patient expressed understanding and agreement with the above treatment plan. The patient is aware they should contact our office by phone for worsening of their current condition or the appearance of new urologic symptoms. Compliance is encouraged with any medications and followup testing that is ordered. It is a privilege to participate in the urologic care of your patient. If you have any questions or concerns regarding treatment for the above conditions, or other urologic issues, please do not hesitate to contact me. The office telephone contact is [phone]. This note is constructed using voice recognition software. While every effort has been made to ensure accuracy coil binder errors may have been included. Yours sincerely, Dr Som Bobo MD, [facility] - Urology Providers of Expert, Compassionate Care for the Genitourinary System Telehealth Telehealth Location of provider rendering services: practice address Location of patient: address on file Patient Identification confirmed using: Name, : Yes Telehealth method: video Patient verbally consented to treatment: Yes Patient verbally consented to billing insurance company: Yes Patient informed of any privacy concerns related to visit: Yes Coding Level of Care Code Tele Est Pt Level 4 (36062) Diagnoses Microscopic hematuria R31.29 BPH w urinary obs/LUTS N40.1; N13.8
== END 2023-03-23 12:06 | disposition home or self-care (01) ==
LOC: HO.HUSH 11:42
PROVIDERS: PCP Nurse Practitioner Family; Visit Provider Urology
DX: R31.29 Other microscopic hematuria (principal); N40.1 Benign prostatic hyperplasia with lower urinary tract symptoms; N13.8 Other obstructive and reflux uropathy
CPT/HCPCS: 99214

== ENCOUNTER → 2023-03-23 11:42 | Outpatient (BNVA) | payer BC, SELFPAY | PROVIDERS: PCP Nurse Practitioner Family; Visit Provider Urology ==

== ENCOUNTER 2023-05-23 14:30 | Outpatient (AMB) | payer BC, SELFPAY ==
--- NOTE | 2023-05-23 14:33 | MHC.PC.OV ---
Vital Signs 05/23/23 14:36 Height 5 ft 10 in Weight 261 lb BMI 37.4 BP 130/80 Blood Pressure Location Rt brachial Position Sitting Pulse 82 Pulse Source Pulse Oximeter Pulse Oximetry (%) 98 Oxygen Delivery Method Room Air Intake Visit Reasons: PreOp-Prostate surgery/EKG Allergies penicillin V Allergy (Severe, Verified 05/23/23 18:16) Swelling pet dander Allergy (Intermediate, Uncoded 05/23/23 18:16) Itchy Eyes trees Allergy (Intermediate, Uncoded 05/23/23 18:16) Itching Medication List - Last Reconciled 05/23/23 by EMMANUEL Baez-ANTHONY finasteride 5 mg PO DAILY 90 days losartan 50 mg PO DAILY pravastatin 40 mg PO DAILY 90 days [turmeric ] Tobacco use date assessed: 01/22/23 HPI PreOp-Prostate surgery/EKG HPI Details Pt is here for a pre-op evaluation. He is scheduled to undergo a GreenLight laser with removal of bladder stone on 06/11. EKG done in office today. Pt has a hx of BBB. EKG today showed new left anterior fascicular block. Spoke with cardiology team who stated that as long as pt is asymptomatic he may have surgery. Will clear pt for surgery and refer to cardiology for further workup. Denies chest pain, shortness of breath, and dizziness. Pt reports being bit by a tick last spring on his umbilicus. Pt saw ID and had tick testing which was negative according to pt. He reports a scabbed lesion to the area that drains intermittently, is not currently draining, it is looking better over the last week . Pt is clear for surgery from my standpoint. [facility] Medical History Trifascicular block HTN (hypertension) Renal cyst Hyperparathyroidism Lung nodule Barretts esophagus BPH (benign prostatic hyperplasia) Dyslipidemia Serum calcium elevated Chronic lower back pain Obesity Surgical History History of sigmoidoscopy History of endoscopy Cyst of face Fusion of lumbar spine Family History Father ALS (amyotrophic lateral sclerosis) Dementia Mother High cholesterol HTN (hypertension) COPD (chronic obstructive pulmonary disease) Diverticulitis Maternal Grandmother Myocardial infarction Breast cancer Maternal Aunt Multiple sclerosis Paternal Aunt Multiple sclerosis Social History Household Members: Spouse Housing: House Alcohol intake: current Alcohol intake frequency: holidays/special occasions only Patient Tobacco Use Status: Never used Tobacco e-Cigarette/Vaping Use: Never Used Second Hand Smoke Exposure: No service: No Current occupational status: retired Cognitive needs: No Hearing needs: No Vision needs: No Questionnaire Thrive Questionnaire Date Thrive assessed: 08/02/21 I am a: Patient What is your living situation today?: I have a steady place to live Within the past 12 months, did the food you bought not last and you didn't have the money to get more?: Never true Within the past 12 months, did you worry whether your food would run out before you got money to buy more?: Never true Please select the resources that you would like help with: None AUDIT C Alcohol Use Questionnaire (AUDIT-C) 1. How often do you have a drink containing alcohol?: Monthly or less 2. How many drinks containing alcohol do you have on a typical day when you are drinking?: 1 or 2 3. How often do you have six or more drinks on one occasion?: Never Total Score: 1 SAHIL-7 AMB Questionnaire SAHIL-7 Date SAHIL - 7 assessed: 08/02/21 Feeling nervous, anxious, or on edge: 1 = Several days Not being able to stop or control worryin = Not at all Worrying too much about different things: 0 = Not at all Trouble relaxin = Not at all Being so restless that it is hard to sit still: 0 = Not at all Becoming easily annoyed or irritable: 0 = Not at all Feeling afraid as if something awful might happen: 0 = Not at all Total SAHIL-7 score (0-4 normal; 5-9 mild; 10-14 moderate; 15-21 severe): 1 Source: Developed by Drs. Edi Hernandez, Lyubov Pedraza, Morro Post and colleagues, with an educational samanta from [employer]. Review of Systems Const Denies chills and Denies fever(s) Eyes Denies blurry vision ENT Denies vertigo, Denies dizziness and Denies sore throat Card Denies chest pain at rest, Denies chest pain with activity, Denies diaphoresis, Denies dyspnea and Denies dyspnea on exertion Resp Denies cough, Denies dyspnea, Denies dyspnea on exertion and Denies wheezing GI Denies abdominal pain, Denies melena, Denies hematochezia, Denies constipation, Denies diarrhea and Denies loose stools Denies hematuria Musc Denies numbness and Denies tingling Skin/Breast Denies lesions Neuro Denies vertigo, Denies dizziness, Denies numbness and Denies tingling Psych Denies anxiety, Denies depression, Denies homicidal ideation, Denies suicidal ideation and Denies other (substance abuse) Aller/Immun Denies wheezing Physical exam (Primary Care) Vital Signs: Last Vital Signs Pulse 82 05/23/23 14:36 BP 130/80 05/23/23 14:36 Pulse Ox 98 05/23/23 14:36 Oxygen Delivery Method Room Air 05/23/23 14:36 BMI result Body Mass Index 37.4 Tobacco/Smoking Status: Tobacco use Status Tobacco use date assessed 01/22/23 05/23/23 14:35 Patient Tobacco Use Status Never used Tobacco 05/23/23 14:35 e-Cigarette/Vaping Use Never Used 05/23/23 14:35 Thrive Assessment: Date of Thrive Assessment Date Thrive assessed 08/02/21 05/23/23 14:35 Const General: cooperative Nutritional Appearance: obese Orientation/consciousness: patient oriented x3 Neck Neck: Yes no lymphadenopathy Resp Effort & Inspection: normal respiratory effort Auscultation: clear to auscultation bilaterally Cardio Rate: regular rate Rhythm: regular rhythm Heart sounds: S1 normal heart sound present, S2 normal heart sound present and no murmurs Skin Other: umbilicus with crusty circular shaped scabbing, no surrounding erythema, not tender with palpation, no fluid able to be expressed Neuro General: patient oriented x3 and moves all extremities Psych Appearance: grossly normal Mental Status: mental status grossly normal Speech and movement: Normal speech and movement present Affect: normal affect Attitude: cooperative Thought process: Normal thought process present Thought content: Normal thought content present Insight: Good insight present (Psych) Judgement: Good judgement present (Psych) Assessment and Plan Assessment & Plan (1) Left anterior fascicular block: Code(s): I44.4 - Left anterior fascicular block (2) Pre-op evaluation: Code(s): Z01.818 - Encounter for other preprocedural examination Plan The patient agreed to the use of a medical physics teacher for this encounter. Scribed for EMMANUEL Kruase-ANTHONY by Thao Multani medical physics teacher, on 05/23/2023 at 15:05 EST. Orders: Referrals Cardiology Referral I44.4 - Left anterior fascicular block Coding Level of Care Code Est Pt Prev Care 40-64y(54446) Diagnoses Left anterior fascicular block I44.4 Pre-op evaluation Z01.818
[2023-05-23 14:36] VITALS: BP 130/80; PULSE 82; O2SAT 98; BMI 37.4
== END 2023-05-23 17:55 | disposition home or self-care (01) ==
PROVIDERS: PCP Nurse Practitioner Family; Visit Provider Nurse Practitioner Family
DX: I44.4 Left anterior fascicular block (principal); Z01.818 Encounter for other preprocedural examination
CPT/HCPCS: 93000; 99213

== ENCOUNTER 2023-06-11 14:41 | Observation (INO) | payer BC, SELFPAY ==
[2023-06-07 09:57] VITALS: BMI 37.4
--- NOTE | 2023-06-08 08:27 | HO.ANESPROP2 ---
Documented by User: Lana Dutta NP 06/08/23 08:30 HPI - Anesthesia Eval Consult details Narrative: 62yo M for Laser Ablation Prostate w/Green Light,with bladder stone removal Medically cleared (new LAFB, but PCP discussed with cardio and OK to proceed if asymptomatic) PMFSH Active Problems Active Problems: All Active Problems (Updated 05/23/23 @ 18:17 by Hussein Stringer, [facility]) Pre-op evaluation (Acute) Left anterior fascicular block (Acute) Skin infection (Acute) Right knee pain (Acute) Microscopic hematuria (Acute) Blood typing encounter (Acute) Cellulitis of abdominal wall (Acute) Tick bite of abdomen (Acute) Dyslipidemia (Acute) Recurrent headache (Acute) Uncontrolled hypertension (Acute) Physical exam (Acute) Nocturia more than twice per night (Acute) BPH w urinary obs/LUTS (Acute) Urinary hesitancy (Acute) Bilateral nephrolithiasis (Acute) Contact dermatitis (Acute) Chest discomfort (Acute) Anterior fascicular block, posterior fascicular block and incomplete right bundle branch block (RBBB) (Acute) Fatigue (Acute) Elevated ferritin (Chronic) Positive ALBERTO (antinuclear antibody) (Acute) Physical exam (Acute) Screening PSA (prostate specific antigen) (Acute) HTN (hypertension) (Acute) Past Medical History Medical History Trifascicular block HTN (hypertension) Renal cyst Hyperparathyroidism Lung nodule Barretts esophagus BPH (benign prostatic hyperplasia) Dyslipidemia Serum calcium elevated Chronic lower back pain Obesity Family History Family History Father ALS (amyotrophic lateral sclerosis) Dementia Mother High cholesterol HTN (hypertension) COPD (chronic obstructive pulmonary disease) Diverticulitis Maternal Grandmother Myocardial infarction Breast cancer Maternal Aunt Multiple sclerosis Paternal Aunt Multiple sclerosis Family history of problems with anesthesia: No Surgical History Surgical History History of sigmoidoscopy History of endoscopy Cyst of face Fusion of lumbar spine History of Problems with Anesthesia: No Social History Social History Household Members: Spouse Housing: House Alcohol intake: current Alcohol intake frequency: holidays/special occasions only Patient Tobacco Use Status: Never used Tobacco e-Cigarette/Vaping Use: Never Used Second Hand Smoke Exposure: No Use of substances other than those prescribed or required for medical reasons: No Are you DNR?: No Advance Directives: No Advance Directives Information Provided: Yes service: No Current occupational status: retired Cognitive needs: No Hearing needs: No Vision needs: No Meds Allergies Allergy/AdvReac Type Severity Reaction Status Date / Time penicillin V Allergy Severe Swelling Verified 05/23/23 18:16 pet dander Allergy Intermediate Itchy Eyes Uncoded 05/23/23 18:16 trees Allergy Intermediate Itching Uncoded 05/23/23 18:16 Home Medications Medication Instructions Recorded Confirmed Last Taken Type turmeric 09/08/21 05/23/23 Unknown History Exam Height,Weight and Vital Signs: Height 5 ft 10 in Weight 118.388 kg Pertinent Lab Results Pertinent Lab Results: Laboratory Tests 01/10/23 11:04 WBC 6.4 Hgb 16.0 Hct 49.1 Plt Count 220 Sodium 140 Potassium 4.4 Chloride 107 Carbon Dioxide 27 BUN 18 H Creatinine 1.03 Narrative Narrative: EKG 04/2023 NSR @ 76 LAFB Assessment and Plan Assessment Anesthesia Assessment: Chart Reviewed Final Anesthetic Review Family History of Problems with Anesthesia: No History of Problems with Anesthesia: No Documented by User: Pam Joy MD 06/11/23 08:10 PMFSH Past Medical History Medical History Trifascicular block HTN (hypertension) Renal cyst Hyperparathyroidism Lung nodule Barretts esophagus BPH (benign prostatic hyperplasia) Dyslipidemia Serum calcium elevated Chronic lower back pain Obesity Family History Family History Father ALS (amyotrophic lateral sclerosis) Dementia Mother High cholesterol HTN (hypertension) COPD (chronic obstructive pulmonary disease) Diverticulitis Maternal Grandmother Myocardial infarction Breast cancer Maternal Aunt Multiple sclerosis Paternal Aunt Multiple sclerosis Surgical History Surgical History History of sigmoidoscopy History of endoscopy Cyst of face Fusion of lumbar spine Social History Social History Household Members: Spouse Housing: House Alcohol intake: current Alcohol intake frequency: holidays/special occasions only Patient Tobacco Use Status: Never used Tobacco e-Cigarette/Vaping Use: Never Used Second Hand Smoke Exposure: No Use of substances other than those prescribed or required for medical reasons: No Are you DNR?: No Advance Directives: No Advance Directives Information Provided: Yes service: No Current occupational status: retired Cognitive needs: No Hearing needs: No Vision needs: No Meds Allergies Allergy/AdvReac Type Severity Reaction Status Date / Time penicillin V Allergy Severe Swelling Verified 05/23/23 18:16 pet dander Allergy Intermediate Itchy Eyes Uncoded 05/23/23 18:16 trees Allergy Intermediate Itching Uncoded 05/23/23 18:16 Home Medications Medication Instructions Recorded Confirmed Last Taken Type turmeric 09/08/21 05/23/23 Unknown History Exam Airway Mallampati Class: II TM Dist: >3cm Neck ROM: Full Heart: rrr Lungs: cta Assessment and Plan Assessment Anesthesia Assessment: Anesthesia Plan Discussed Final Anesthetic Review NPO: Yes ASA Class: III Final Preanesthetic Review: No Changes in Pt Med Stat, Meds/Allgs Chart Reviewed, Consent Obtained/Reviewed and Anes Risks/Benef Reviewed Patient Risk: Intermediate Procedure Risk: Low Anesthetic Plan Anesthetic Plan: GA Disposition: Standard PACU
[2023-06-11] VITALS (18 sets, daily range): BP systolic 130–170; BP diastolic 58–116; PULSE 73–89; RESP 14–20; TEMP 36.4–37.3; O2SAT 94–99; BMI 37.6; BMI 39.4
[2023-06-11] MEDS: Lactated Ringers 1,000 ML 100 ML IVCONT ×2 (07:56→16:56)
--- NOTE | 2023-06-11 08:25 | P.HPSUR_ITS ---
Pre-Procedural Eval Section A Date of Service: 06/11/23 The patient is an INPATIENT: No Changes since office visit: No Cold of Flu in the past 2 weeks, No New Medical Problems, No Changes in Medication and No Patient answered all questions The History & Physical has been completed within 30 days and I have reviewed it.: Yes Section B Chief Complaint: Calculus in bladder,Benign prostatic hyperplasia Allergies: Allergies Allergy/AdvReac Type Severity Reaction Status Date / Time penicillin V Allergy Severe Swelling Verified 05/23/23 18:16 pet dander Allergy Intermediate Itchy Eyes Uncoded 05/23/23 18:16 trees Allergy Intermediate Itching Uncoded 05/23/23 18:16 Review of Systems Sugical H&P ROS: Negative: Constitution, Cardiovascular, Respiratory, Neurological, Psychiatric, Hem-Onc, Allergic/Immunologic, Gastrointestinal, Genitourinary, Musculoskeletal, Integumentary, Endocrine and Eyes/Ears/Nose /Throat Exam Surgical H&P Exam: Normal: HEENT, Normal: Heart, Normal: Lungs, Normal: Extremities, Normal: Abdomen, Normal: Skin and Normal: Neurological Plan Diagnosis/Plan: Unchanged (bladder stone laser and greenlight laser prostate) I have reviewed the history and physical and performed a pertinent physical examination on my patient. No changes have occurred unless specified. Time Spent With Patient Time: Total time managing care of this patient today ____ minutes.
[2023-06-11] MEDS: oxyBUTYnin chloride ER 5 MG TAB.ER.24 PO (11:55)
[2023-06-11] MEDS: fentaNYL citrate/PF 100 MCG/2 ML VIAL 25 MCG IVPUSH ×4 (11:59→12:15)
[2023-06-11] MEDS: oxyCODONE HCl Immed Release 5 MG TABLET PO (12:01)
[2023-06-11] MEDS: Phenazopyridine HCL 100 MG TABLET PO (12:01)
[2023-06-11] MEDS: ondansetron HCL 4 MG/2 ML VIAL IVPUSH (12:11)
--- NOTE | 2023-06-11 15:21 | PC.NURSE ---
Pt received from PACU with [address] way ochoa and CBI infusing . I have reached out to Dr Bobo for In patient orders
[2023-06-11] MEDS: traMADoL HCL 50 MG TABLET PO (15:43)
[2023-06-11] MEDS: Tranexamic Acid 1,000 MG in 0.9 % Sodium Chloride 50 ML 360 MG IV (19:45)
[2023-06-12] VITALS: BP 128/69; PULSE 66; RESP 18; TEMP 36.3; O2SAT 96
[2023-06-12] MEDS: Lactated Ringers 1,000 ML 100 ML IVCONT (04:01)
[2023-06-12] MEDS: traMADoL HCL 50 MG TABLET PO (06:21)
[2023-06-12 07:41] VITALS: BP 159/84; PULSE 68; RESP 18; TEMP 36.8; O2SAT 98
--- NOTE | 2023-06-12 08:57 | PHA.MEDREC ---
Pharmacy Consult ? Medication Reconciliation Pharmacy has completed the medication reconciliation,spoke with patient, confirmed all meds. Stated Dr. Bobo told him finasteride was started for before the surgery and is unsure if he should be taking it after.
--- NOTE | 2023-06-12 08:58 | MHC.CM.PN ---
pt dcd home no skilled servies ordered by
--- NOTE | 2023-06-12 09:28 | PM.UROPN ---
Subjective Subjective Date of Service: 06/12/23 Interval history: Urine clearing Stop CBI Stop IV DC home Follow-up for catheter removal Physical Exam Vital Signs: Vital Signs: Last Vital Signs Temp 98.3 F 06/12/23 07:41 Pulse 68 06/12/23 07:41 Resp 18 06/12/23 07:41 BP 159/84 H 06/12/23 07:41 Pulse Ox 98 06/12/23 07:41 O2 Del Method Room Air 06/12/23 07:41 BMI result Body Mass Index 39.4 Const: General: cooperative, healthy appearing, comfortable and no acute distress Orientation/consciousness: patient oriented x3 HEENT: Face and sinus: Yes normal facial exam Mouth: moist mucous membranes Neck: Neck: Yes normal visual inspection, Yes full ROM and Yes trachea midline Chest: Chest palpation & inspection: normal inspection of the chest Resp: Effort & Inspection: normal respiratory effort, able to speak in complete sentences and no respiratory distress GI: Inspection: Yes normal to inspection Back/Spine/Pelvis: Cervical Spine: normal cervical lordosis Thoracic/Lumbar Spine: thoracic and lumbar spine normal to inspection Skin: General skin exam: no rashes or lesions noted Neuro: General: patient oriented x3, tone normal and moves all extremities Extrem: General: Yes normal to inspection and Yes capillary refill normal Progress Note: A&P Assessment and plan (1) Bladder stones: Status: Acute Assessment and Plan: DC home Time Spent With Patient Time: Total time managing care of this patient today ____ minutes.
--- NOTE | 2023-06-12 09:54 | PM.DS ---
DS: Providers Provider Date of Service: 06/12/23 Date of admission: 06/11/23 14:41 Primary care physician: OZ Devries DS: Diagnosis Discharge Diagnosis (1) Bladder stones: Status: Acute DS: Summary Hospital Course Hospital Course: Underwent procedure yesterday for significant number of bladder stones and prostate. Had more hematuria than usual postoperative and was admitted for CBI Urine cleared by the morning Will follow-up in 2 days for catheter removal Time spent discussing smoking cessation with patient: 3 to 10 minutes Status at Discharge Functional status at discharge: independent ambulation Overall status at discharge: patient is back to baseline Time Attestation Discharge coordination time: Less than 30 minutes Quality: Safe Use of Opioids Does Pt have an Active Cancer Diagnosis on the Problem List?: No Quality: Stroke Does the patient have a stroke diagnosis?: No Physical Exam Vital Signs: Vital Signs: Last Vital Signs Temp 98.3 F 06/12/23 07:41 Pulse 68 06/12/23 07:41 Resp 18 06/12/23 07:41 BP 159/84 H 06/12/23 07:41 Pulse Ox 98 06/12/23 07:41 O2 Del Method Room Air 06/12/23 08:10 BMI result Body Mass Index 39.4 DS: Data Data Completed and Pending Pending studies at discharge: Pending at discharge 06/11/23 11:09 Surgical [PTH] Routine Discharge Plan Discharge Patient Disposition: Home, Self-Care Referrals: Som Bobo MD [Physician] - 3-5 Days ( catheter out) Hussein Stringer FNP-BC [Primary Care Provider] - 1 Week Discharge Medications: New sulfamethoxazole-trimethoprim [Bactrim] 400-80 mg tablet 1 tab PO DAILY Qty: 10 0RF tamsulosin 0.4 mg capsule 0.4 mg PO BEDTIME 14 Days Qty: 14 0RF tramadol 50 mg tablet 50 mg PO Q6H PRN (Reason: pain (scale score 1-3)) Qty: 8 0RF phenazopyridine [Pyridium] 100 mg tablet 100 mg PO TID PRN (Reason: Spasm) 4 Days Qty: 12 0RF Continued losartan 50 mg tablet 50 mg PO DAILY Qty: 90 1RF pravastatin 40 mg tablet 40 mg PO DAILY 90 Days Qty: 90 1RF finasteride 5 mg tablet 5 mg PO DAILY 90 Days Qty: 90 0RF Discharge Orders: Discharge Order (Routine); Ordered 06/11/23 Ordered By: Som Bobo Diet: Advance to usual diet Activity on Discharge: As tolerated Care Plan Goals: hematuria Health Concerns: hematuria Plan of Treatment: hematuria Assessment: hemturia Patient Instructions: Transurethral Prostatectomy (DC)
--- NOTE | 2023-06-12 13:57 | HO.POSTANES ---
Post Anesthesia Evaluation Post Anesthesia Evaluation Date of Service: 06/12/23 Vital Signs: Vital Signs Temp Pulse Resp BP Pulse Ox O2 Del Method 06/12/23 08:10 Room Air 06/12/23 07:41 98.3 F 68 18 159/84 H 98 Room Air Anesthesia: General Mental Status: Awake Pain Control: Satisfactory Nausea/Vomiting: None Hydration: Adequate Anesthesia-Related Issues: No Anes. Related Issues
--- NOTE | 2023-07-12 16:28 | W.PM.OPN ---
Operative Note Operative Note Date of Service: 06/11/23 Narrative: PreOperative Diagnosis: Bladder outlet obstruction with bladder stones Post Operative Diagnosis: Bladder outlet obstruction with bladder stones Procedure: 1) GreenLight Laser Enucleation of the prostate CPT 76968 2) holmium laser of bladder stones - modifier 22 100% longer than typical 45 min Surgeon: Dr Som Bobo Anesthesia: General Indications for procedure: CT scan from last year showing 6 x 1.5 cm bladder stones and 120 cc prostate. History of bladder outlet obstruction. Treated with alpha-sammy and other medications. Bladder stones. Recommend bladder stone Procedure with GreenLight laser prostate Procedure: After informed consent was verified the patient was brought to the operating room and placed in a supine position. Anesthesia was administered per protocol. Patient was placed in modified dorsal lithotomy position and prepped and draped in a sterile fashion. Safety pause time-out was confirmed. Antibiotics have been given. A Twenty-four St Lucian laser cystoscope was inserted per urethra. No abnormalities were found of the anterior and bulbar urethra. The bladder was examined and both ureteric orifices were seen in their normal positions away from the area of interest. Multiple bladder stones seen within bladder. Using holmium laser fiber 940nm and high power settings on 100 w machine the 6 bladder stones were broken into small pieces. This took approximately 45-60 minutes. 100% longer than typical due to total bladder volume of stones. They were washed out multiple times. Once the bladder was clear the enlarged prostate could be addressed. Using a GreenLight laser with settings of 80 w incisions were made at the 5 and 7 o'clock position. The incisions were taken down from the bladder neck down to the level of the veru. These were gradually deepened in order to define the lateral aspects of the median lobe area. Once clearly defined they will also extended in the lateral directions in order to create a deep groove. The median lobe was large and a incision was made down the middle of the median lobe. With a median lobe split into pieces attention was then placed on ablating and enucleated tissue. The median lobe was then ablated and enucleated tissue released into the bladder with the laser power increased to 120 W. Once the median lobe area had been cleared attention was directed to the lateral lobes. The 5 and 07:00 o'clock grooves were extended laterally on each side. By the time this had been completed we made a decision to leave the prostate open as there had been some prostatic ooze. When this was had been completed debris and pieces of prostate were removed from the bladder with irrigation. Both ureteric orifices were reviewed again in shown to be patent in away from any areas of energy damage. The apical area was reviewed in any stray ooze was controlled. A 22 [address] [place]ian 30 cc balloon Greenwood catheter was placed over a stylet into the bladder. Clear efflux was obtained upon irrigation with a Tamie piston syringe. 30 cc was placed in the balloon and gentle traction was placed. A snap was used to hold tension on the catheter to control bleeding during patient moved and transported. A drainage bag was placed. Once transportation is complete to the PACU the snap will be removed. The patient tolerated the procedure well, he was extubated in the operating and transferred in a stable condition to the recovery area. Total Power 100 kW Lasing time 25 Pathology: Prostate tissue Drains: Greenwood catheter
== END 2023-06-12 11:19 | disposition home or self-care (01) ==
LOC: HO.S3 16:38
PROVIDERS: Admitting Provider Urology; PCP Nurse Practitioner Family; Visit Provider Urology
PROC: (CPT 52648; principal; 2023-06-11 08:50)
DX: N32.0 Bladder-neck obstruction (principal); N21.0 Calculus in bladder; N40.1 Benign prostatic hyperplasia with lower urinary tract symptoms; R31.29 Other microscopic hematuria; N13.8 Other obstructive and reflux uropathy; R31.9 Hematuria, unspecified; I44.4 Left anterior fascicular block; I10 Essential (primary) hypertension; E21.3 Hyperparathyroidism, unspecified
CPT/HCPCS: 52649; 52317; 88300; 96361; 96374; 99221; J1956; J2371; J2405; J2550; J2704; J3010; J7120

== ENCOUNTER → 2023-06-11 14:41 | Outpatient (BNV) | payer BC, SELFPAY | PROVIDERS: Admitting Provider Urology; PCP Nurse Practitioner Family; Visit Provider Urology | DX: N40.1 Benign prostatic hyperplasia with lower urinary tract symptoms (principal); N21.0 Calculus in bladder | CPT/HCPCS: 52317; 52649; 99235 ==

== ENCOUNTER → 2023-06-14 09:55 | Outpatient (BNVA) | payer BC, SELFPAY | PROVIDERS: PCP Nurse Practitioner Family; Visit Provider Urology | DX: N40.1 Benign prostatic hyperplasia with lower urinary tract symptoms (principal); N13.8 Other obstructive and reflux uropathy; Z98.890 Other specified postprocedural states | CPT/HCPCS: 51700; 51798 ==

== ENCOUNTER 2023-06-15 03:57 | Emergency (ER) | payer BC, SELFPAY ==
--- NOTE | ~2023-06-15 | XR_ITS ---
EXAMINATION: XR ABDOMEN KUB CLINICAL INDICATION: Constipation COMPARISON: CT dated 11/11/2015 TECHNIQUE: AP view of the abdomen. FINDINGS: The bowel gas pattern is normal with no evidence of ileus or obstruction. Moderate stool throughout the ascending and transverse colon. No unusual soft tissue calcifications are noted. The bones are unremarkable. Interbody cages at L5-S1. XR/XR KUB IMPRESSION: * Moderate constipation. * No evidence of obstruction.
[2023-06-15 04:04] VITALS: BP 195/107; PULSE 112; RESP 15; TEMP 36.7; O2SAT 96
[2023-06-15 04:09] VITALS: BP 120/90; BP 195/107; PULSE 116; PULSE 97; RESP 20; TEMP 36.7; O2SAT 97; O2SAT 98; BMI 37.6
--- NOTE | 2023-06-15 04:13 | ED.MALEGU ---
HPI - Male Genitourinary General Chief complaint: Urogenital-Male Stated complaint: unable to urinate Time Seen by Provider: 06/15/23 03:57 Source: patient and old records reviewed Mode of arrival: EMS Limitations: no limitations History of Present Illness HPI Narrative: 62 yo male with PMH of HLD, HTN, BPH, bladder stones who underwent bladder stone retrieval and greenlight laser procedure on 06/11 was admitted afterwards for hematuria and underwent CBI. He was sent home on flomax, bactrim, tramadol for pain. His catheter was removed yesterday and he states he was doing okay until about 11pm. He then started to have a hard time urinating with abdominal pain. He also has not had a bowel movement in 3 days he is not on a bowel regimen. PVR bladder scan 485 MD Complaint: other (retention, constipation) Onset (ago): day(s) (yesterday 11pm) Duration: constant Location: abdomen Radiation: abdomen Severity: moderate Quality: aching Relieving factors: urination Exacerbating factors: none Context: recent surgery Associated symptoms: Reports urinary retention, blood in urine and other (constipation) Related Data Previous Rx's Medication Instructions Recorded finasteride 5 mg tablet 5 mg PO DAILY 90 days #90 tabs 03/23/23 losartan 50 mg tablet 50 mg PO DAILY #90 tabs 05/02/23 pravastatin 40 mg tablet 40 mg PO DAILY 90 days #90 tabs 05/02/23 phenazopyridine 100 mg tablet 100 mg PO TID PRN Spasm 4 days #12 06/11/23 (Pyridium) tabs sulfamethoxazole 400 1 tab PO DAILY #10 tabs 06/11/23 mg-trimethoprim 80 mg tablet (Bactrim) tamsulosin 0.4 mg capsule 0.4 mg PO BEDTIME 14 days #14 caps 06/11/23 tramadol 50 mg tablet 50 mg PO Q6H PRN pain (scale score 06/11/23 1-3) #8 tabs lactulose 10 gram/15 mL (15 mL) 20 g (30 mL) PO DAILY PRN 06/15/23 oral solution constipation #1,440 mL sennosides 8.6 mg tablet 8.6 mg PO DAILY #30 tabs 06/15/23 (Evac-U-Gen (sennosides)) Allergies Allergy/AdvReac Type Severity Reaction Status Date / Time penicillin V Allergy Severe Swelling Verified 05/23/23 18:16 pet dander Allergy Intermediate Itchy Eyes Uncoded 05/23/23 18:16 trees Allergy Intermediate Itching Uncoded 05/23/23 18:16 Review of Systems Review of Systems: Constitutional : No Weight loss, No Fever, No Chills ENT/Mouth : No sore throat, No Rhinorrhea Eyes: No Swelling, No Redness Cardiovascular : No Chest Pain, No SOB, NoEdema Respiratory : No Cough, No Sputum, No Wheezing Gastrointestinal : no Nausea, no Vomiting, no Diarrhea, positive abdominal Pain, No Hematochezia, No Melena, pos constipation Genitourinary : No Dysuria, No Urinary Frequency, pos Hematuria, No Urgency , pos retention Musculoskeletal : No joint pain, No Myalgias, No Joint Swelling Skin : No Skin Lesions, No rash Neuro : No Weakness, No Numbness, No Dizziness, No Headache Psych : pos Anxiety/Panic, No Depression All other systems reviewed and are negative. [facility] Past Medical History Attestation statement: The following information was validated with the patient. Source: old records reviewed Medical History Trifascicular block HTN (hypertension) Renal cyst Hyperparathyroidism Lung nodule Barretts esophagus BPH (benign prostatic hyperplasia) Dyslipidemia Serum calcium elevated Chronic lower back pain Obesity Surgical History History of sigmoidoscopy History of endoscopy Cyst of face Fusion of lumbar spine Family History Family History Father ALS (amyotrophic lateral sclerosis) Dementia Mother High cholesterol HTN (hypertension) COPD (chronic obstructive pulmonary disease) Diverticulitis Maternal Grandmother Myocardial infarction Breast cancer Maternal Aunt Multiple sclerosis Paternal Aunt Multiple sclerosis Social History Social History Household Members: Spouse Housing: House Do you presently have visiting nurse or other home services: No Alcohol intake: current Alcohol intake frequency: holidays/special occasions only Patient Tobacco Use Status: Never used Tobacco e-Cigarette/Vaping Use: Never Used Second Hand Smoke Exposure: No Advance Directives: No Advance Directives Information Provided: Yes service: No Current occupational status: retired Cognitive needs: No Hearing needs: No Vision needs: No Physical Exam Vital Signs: Vital Signs: Last Vital Signs Temp 98.1 F 06/15/23 04:09 Pulse 97 06/15/23 04:09 Resp 20 06/15/23 04:09 BP 195/107 H 06/15/23 04:09 Pulse Ox 97 06/15/23 04:09 O2 Del Method Room Air 06/15/23 04:09 BMI result Body Mass Index 37.6 Appearance: Alert. Oriented X3. anxious mild acute distress. Eyes: Pupils equal, round and reactive to light. ENT: Pharynx normal. Neck: Normal inspection. Neck supple. CVS: Normal heart rate and rhythm. Pulses normal. Respiratory: No respiratory distress. Breath sounds normal. Abdomen: Soft and mild suprapubic ttp Skin: Skin warm and dry. Normal skin color. Normal skin turgor. Extremities: No lower extremity edema. No calf ttp Neuro: Oriented X 3. No motor deficit. No sensory deficit. Course Course Course Narrative: pain improved with IV dilaudid Medications Administered Discontinued Medications Generic Name Dose Route Start Last Admin Trade Name Freq PRN Reason Stop Dose Admin Hydromorphone HCl 1 mg 06/15/23 05:10 06/15/23 05:23 Hydromorphone Hcl 1 Mg/Ml Syringe IVPUSH 06/15/23 05:11 1 mg ONCE ONE Administration Protocol Sodium Chloride 1,000 mls @ 999 mls/hr 06/15/23 04:15 06/15/23 05:17 Ns IV 06/15/23 05:15 999 mls/hr .Q1H1M SHANNAN Administration Ceftriaxone Sodium 1 gm/ 50 mls @ 100 mls/hr 06/15/23 05:04 06/15/23 05:17 Sodium Chloride IV 06/15/23 05:33 100 mls/hr ONCE ONE Administration Lidocaine HCl 10 ml 06/15/23 04:14 06/15/23 04:37 Lidocaine Hcl 2 % Urojet 10 Ml Jel.Pf.Saira TOPICAL 06/15/23 04:15 10 ml ONCE ONE Administration Lorazepam 1 mg 06/15/23 04:08 06/15/23 04:36 Lorazepam 2 Mg/Ml Vial IVPUSH 06/15/23 04:09 1 mg STAT STA Administration Medical Decision Making Medical Decision Making MDM Narrative: 62 yo male with PMH of HLD, HTN, BPH, bladder stones who underwent bladder stone retrieval and greenlight laser procedure on 06/11 was admitted afterwards for hematuria and underwent CBI here with retention and PVR 485 with pain as well as constipation likely due to tramadol has no n/v to suggest bowel obstruction. He is very anxious. At this time will obtain labs, UA, KUB for constipation. Likely ochoa. Given anxiety will start IV ativan. Differential Diagnosis Differential Diagnoses: The differential diagnosis associated with the presentation includes constipation, retention, BPH Admission/Observation Consideration of admission/observation: Escalation of care including admission/observation considered labs reassuring, better after catheter placement - draining urine no clots after initial placement does not need CBI can be DC still on bactrim and bowel regimen Lab Data MDM Lab Attestation statement: I reviewed the patient's lab results. 06/15/23 04:18 06/15/23 04:18 Labs: Lab Results 06/15/23 Range/Units 04:18 WBC 8.2 (4.8-10.8) X10*3/uL RBC 4.56 L (4.60-5.80) X10*6/uL Hgb 14.6 (14.0-18.0) g/dl Hct 43.1 (42.0-52.0) % MCV 94.5 (80.0-98.0) fL MCH 32.0 (27.0-33.0) pg MCHC 33.9 (31.0-36.0) g/dl RDW 12.8 (11.0-16.0) % Plt Count 205 (160-400) X10*3/uL MPV 8.3 L (9.4-12.4) fL Immature Gran % (Auto) 0.2 (0.0-0.4) % Neut % (Auto) 73.9 H (45-73) % Lymph % (Auto) 15.2 L (20-40) % Graves % (Auto) 9.6 (2-11) % Eos % (Auto) 0.7 (0-4) % Baso % (Auto) 0.4 (0-2) % Lymph # (Auto) 1.3 (1.2-4.9) X10*3/uL Graves # (Auto) 0.8 (0.1-1.2) X10*3/uL Eos # (Auto) 0.1 (0.0-0.4) X10*3/uL Baso # (Auto) 0.0 (0.0-0.2) X10*3/uL Abs Immat Gran (auto) 0.02 (0.00-0.03) X10*3/uL Absolute Neuts (auto) 6.1 (2.0-8.3) x10*3/uL Absolute Nucleated RBC 0.000 (0.0-0.012) X10*3/uL Nucleated RBC % (auto) 0.0 (0.0-0.2) /100WBC Sodium 139 (135-145) mmol/L Potassium 4.3 (3.3-5.1) mmol/L Chloride 105 (96-108) mmol/L Carbon Dioxide 22 (22-29) mmol/L Anion Gap 16 (12-20) BUN 16 (9-16) mg/dL Creatinine 1.10 (0.5-1.4) mg/dL Estim Creat Clear Calc 87.6 Estimated GFR > 60 Random Glucose 157 H (60-115) mg/dL Calcium 10.6 H (8.4-10.2) mg/dL Magnesium 2.2 (1.6-2.6) mg/dL Urine Color Dark Yellow Urine Appearance Cloudy Urine pH 5.5 (5.0-9.0) Ur Specific [place] 1.020 (1.005-1.025) Urine Protein 300 (3+) H (Neg-Trace) mg/dL Urine Glucose (UA) Negative (Negative) mg/dL Urine Ketones Negative (Negative) mg/dL Urine Blood Large (3+) H (Negative) Urine Nitrite Positive H (Negative) Ur Leukocyte Esterase Small (1+) H (Negative) Urine RBC >20 H (0-2) /HPF Urine WBC 21-50 H (0-5) /HPF Ur Squamous Epith Cells 6-10 (0-2) /HPF Urine Bacteria None Seen (None Seen) Hyaline Casts 0-2 (0-2) /LPF Independent Interpretation I performed an independent interpretation of an: Plain X-Ray (no obs) Radiology Impression Discussion of test interpretation with radiology: I have reviewed the radiologist's reading. Independent Historian Clinical information obtained from an independent historian. History obtained from or confirmed by: EMS External Record Review External record reviewed: Inpatient record Prescription Management I considered prescription management with: Other Procedures Procedure Narrative Procedure Narrative: 16f coude ochoa catheter placed with excellent drainage, sterile betadine technique done sterile gloved - needed to be premedicated with ativan and dilaudid, bloody clots noted then orange yellow urine > 500cc. feels better Critical Care Time Critical Care Time Critical Care Time: Yes Total Critical Care Time: 35 Attestation: pain improved with IV dilaudid, repeat assessments, review of records I attest to this time spent taking care of the patient Discharge Plan Discharge Clinical Impression: Acute urinary retention, Acute constipation Patient Disposition: Home, Self-Care Instructions: Constipation (ED), Ochoa Catheter Placement and Care (ED) Additional Instructions: call Dr. Bobo today about ED visit. ochoa will likely be in for a week to allow for swelling to go down. continue the bactrim. return for blocked ochoa, fevers, vomiting, severe pain or any other concerns. bowel regimen - stool softener IS OVER THE COUNTER COLACE 100MG TAKE IT TWICE A DAY, and 2 stimulants SENNA AND LACTULOSE THESE ARE prescriptions in the pharmacy TAKE THIS REGIMEN FOR A WEEK drink plenty of fluids Prescriptions: New sennosides [Evac-U-Gen (sennosides)] 8.6 mg tablet 8.6 mg PO DAILY Qty: 30 0RF lactulose 10 gram/15 mL (15 mL) solution 20 g PO DAILY PRN (Reason: constipation) Qty: 1440 0RF No Action losartan 50 mg tablet 50 mg PO DAILY Qty: 90 1RF pravastatin 40 mg tablet 40 mg PO DAILY 90 Days Qty: 90 1RF sulfamethoxazole-trimethoprim [Bactrim] 400-80 mg tablet 1 tab PO DAILY Qty: 10 0RF tamsulosin 0.4 mg capsule 0.4 mg PO BEDTIME 14 Days Qty: 14 0RF tramadol 50 mg tablet 50 mg PO Q6H PRN (Reason: pain (scale score 1-3)) Qty: 8 0RF phenazopyridine [Pyridium] 100 mg tablet 100 mg PO TID PRN (Reason: Spasm) 4 Days Qty: 12 0RF finasteride 5 mg tablet 5 mg PO DAILY 90 Days Qty: 90 0RF Referrals: Som Bobo MD [Physician] - (notify the office today)
[2023-06-15 04:26] LABS: Basophils Percent Auto 0.4 % (0-2); Eosinophils Absolute Auto 0.1 X10*3/uL (0.0-0.4); Eosinophils Percent Auto 0.7 % (0-4); Hematocrit 43.1 % (42.0-52.0); Hemoglobin 14.6 g/dl (14.0-18.0); Imm Gran Abs Auto 0.02 X10*3/uL (0.00-0.03); Imm Gran Pct Auto 0.2 % (0.0-0.4); Lymphocytes Absolute Auto 1.3 X10*3/uL (1.2-4.9); Lymphocytes Percent Auto 15.2 % (20-40); MANUAL DIFF FLAG NO; Mean Corpuscular HGB Conc 33.9 g/dl (31.0-36.0); Mean Corpuscular Volume 94.5 fL (80.0-98.0); Mean Platelet Volume 8.3 fL (9.4-12.4); Monocytes Absolute Auto 0.8 X10*3/uL (0.1-1.2); Monocytes Percent Auto 9.6 % (2-11); Neutrophils Absolute Auto 6.1 x10*3/uL (2.0-8.3); Neutrophils Percent Auto 73.9 % (45-73); Platelet Count 205 X10*3/uL (160-400); Red Blood Count 4.56 X10*6/uL (4.60-5.80); Red Cell Distribution Width 12.8 % (11.0-16.0); White Blood Count 8.2 X10*3/uL (4.8-10.8)
[2023-06-15 04:27] LABS: Appearance Urine Cloudy; Color Urine Dark Yellow; Glucose Urine UA Negative (Negative); Leukocyte Esterase Urine Small (1+) (Negative); Nitrite Urine Positive (Negative); PH 5.5 (5.0-9.0); UMIC TRIGGER UACC YES; Urine Blood Large (3+) (Negative); Urine Ketones Negative (Negative); Urine Protein 300 (3+) mg/dL (Neg-Trace)
[2023-06-15] MEDS: LORazepam 2 MG/ML VIAL 1 MG IVPUSH (04:36)
[2023-06-15] MEDS: Lidocaine HCl 2 % Urojet 10 ML JEL.PF.APP TOPICAL (04:37)
[2023-06-15 04:40] LABS: Anion Gap 16 (12-20); Blood Urea Nitrogen 16 mg/dL (9-16); Calcium 10.6 mg/dL (8.4-10.2); Carbon Dioxide 22 mmol/L (22-29); Chloride 105 mmol/L (96-108); Creatinine Clr Calc Pharmacy 87.6; Estimated Glomerular Filt Rate > 60; Glucose Random 157 mg/dL (60-115); Magnesium 2.2 mg/dL (1.6-2.6); Potassium 4.3 mmol/L (3.3-5.1); Sodium 139 mmol/L (135-145)
[2023-06-15 04:43] LABS: Bacteria Urine None Seen (None Seen); Hyaline Casts Urine 0-2 /LPF (0-2); RBC Urine >20 /HPF (0-2); UACC Culture Trigger YES; WBC Urine 21-50 /HPF (0-5)
--- NOTE | 2023-06-15 05:10 | PC.NURSE ---
20g iv placed pt tolerated. this rn and dr welch placed 16 cuday catheter 625ml immediate orange colored urine out put. one moderate sized clot noted by this rn and dr welch. pt tolerated well. pt medicated according to mar
[2023-06-15] MEDS: cefTRIAXone sodium 1 GM in 0.9 % Sodium Chloride 50 ML IV (05:17)
[2023-06-15] MEDS: 0.9 % Sodium Chloride 1,000 ML 999 ML IV (05:17)
--- NOTE | 2023-06-15 05:19 | PC.NURSE ---
per dr welch pt does not need blood cultures prior to admin of IV antibiotics
[2023-06-15] MEDS: HYDROmorphone HCl 1 MG/ML SYRINGE IVPUSH (05:23)
--- NOTE | 2023-06-15 05:25 | PC.NURSE ---
pt medicated according to aug with IVP dilaudid. vial disposed of in sharps container. pt tolerated well. charted accordingly in aug. discharge planner aware
[2023-06-15 05:40] VITALS: BP 121/72; PULSE 103; RESP 16; TEMP 36.8; O2SAT 95
--- NOTE | 2023-06-15 07:39 | PC.NURSE ---
iv removed at discharge per dr welch pt okay to leave prior to completed infusion of IVF. pt utilized wheelchair at discharge pt present at discharge pt provided with discharge packet. pt verbalized understanding of discharge plan
== END 2023-06-15 06:00 | disposition home or self-care (01) ==
PROVIDERS: Emergency Provider Emergency Medicine; PCP Nurse Practitioner Family
DX: R33.9 Retention of urine, unspecified (principal); K59.00 Constipation, unspecified; Z79.899 Other long term (current) drug therapy
CPT/HCPCS: 36415; 51701; 74018; 80048; 81001; 83735; 85025; 87086; 96365; 96375; 99284; 99285; J0696; J1170; J2060

== ENCOUNTER 2023-06-25 18:06 | Emergency (ER) | payer MEDICARE, BC, SELFPAY ==
[2023-06-25 18:10] VITALS: BP 178/94; PULSE 84; RESP 20; TEMP 37.2; O2SAT 96; BMI 35.9
--- NOTE | 2023-06-25 18:10 | ED.MALEGU ---
HPI - Male Genitourinary General Chief complaint: Urogenital-Male Stated complaint: Cathedar not draining/painful Time Seen by Provider: 06/25/23 22:49 Source: patient Mode of arrival: ambulatory Limitations: no limitations History of Present Illness HPI Narrative: 62 yo male with PMH of HLD, HTN, BPH, bladder stones who underwent bladder stone retrieval and greenlight laser procedure on 06/11 was admitted afterwards for hematuria and underwent CBI, seen in the emergency department on 06/15/2023 for urinary retention requiring Ochoa catheter placement. Patient was given Dilaudid 1 mg IV prior to 16 [place] coudeFoley catheter placement. Patient states that over the last 6 hours the Ochoa catheter is not draining. He states that urine is draining around the catheter. He is complaining of suprapubic pain. he also complaining of pain in the tip of his penis. Related Data Previous Rx's Medication Instructions Recorded finasteride 5 mg tablet 5 mg PO DAILY 90 days #90 tabs 03/23/23 losartan 50 mg tablet 50 mg PO DAILY #90 tabs 05/02/23 pravastatin 40 mg tablet 40 mg PO DAILY 90 days #90 tabs 05/02/23 phenazopyridine 100 mg tablet 100 mg PO TID PRN Spasm 4 days #12 06/11/23 (Pyridium) tabs sulfamethoxazole 400 1 tab PO DAILY #10 tabs 06/11/23 mg-trimethoprim 80 mg tablet (Bactrim) tramadol 50 mg tablet 50 mg PO Q6H PRN pain (scale score 06/11/23 1-3) #8 tabs lactulose 10 gram/15 mL (15 mL) 20 g (30 mL) PO DAILY PRN 06/15/23 oral solution constipation #1,440 mL sennosides 8.6 mg tablet 8.6 mg PO DAILY #30 tabs 06/15/23 (Evac-U-Gen (sennosides)) tamsulosin 0.4 mg capsule 0.4 mg PO BEDTIME 14 days #14 caps 06/21/23 Allergies Allergy/AdvReac Type Severity Reaction Status Date / Time penicillin V Allergy Severe Swelling Verified 06/25/23 18:14 pet dander Allergy Intermediate Itchy Eyes Uncoded 05/23/23 18:16 trees Allergy Intermediate Itching Uncoded 05/23/23 18:16 Review of Systems Review of Systems: Yes all other systems are reviewed and are negative [facility] Past Medical History Onset Date is defined in the Problem List Problems that require an onset date and time if occurred within 24 hrs of arrival to the ED Aortic Dissection and Rupture; Neurologic impairment; Cardiopulmonary Arrest; Endotracheal Intubation; Insertion or Replacement of Mechanical Circulatory Assist Device Medical History Trifascicular block HTN (hypertension) Renal cyst Hyperparathyroidism Lung nodule Barretts esophagus BPH (benign prostatic hyperplasia) Dyslipidemia Serum calcium elevated Chronic lower back pain Obesity Surgical History History of sigmoidoscopy History of endoscopy Cyst of face Fusion of lumbar spine Family History Family History Father ALS (amyotrophic lateral sclerosis) Dementia Mother High cholesterol HTN (hypertension) COPD (chronic obstructive pulmonary disease) Diverticulitis Maternal Grandmother Myocardial infarction Breast cancer Maternal Aunt Multiple sclerosis Paternal Aunt Multiple sclerosis Social History Social History Household Members: Spouse Housing: House Do you presently have visiting nurse or other home services: No Alcohol intake: current Alcohol intake frequency: does not drink Patient Tobacco Use Status: Never used Tobacco e-Cigarette/Vaping Use: Never Used Second Hand Smoke Exposure: No Advance Directives: No Advance Directives Information Provided: No service: No Current occupational status: retired Cognitive needs: No Hearing needs: No Vision needs: No Physical Exam Vital Signs: Vital Signs: Last Vital Signs Temp 97.8 F 06/25/23 22:48 Pulse 89 06/25/23 23:41 Resp 18 06/25/23 23:41 BP 165/91 H 06/25/23 23:41 Pulse Ox 100 06/25/23 23:41 O2 Del Method Room Air 06/25/23 23:41 BMI result Body Mass Index 35.9 vital signs revealed elevated blood pressure otherwise unremarkable exam: General: Awake, alert in no distress Abdomen: soft, Distended bladder, moderate tenderness Back: no vertebral tenderness, no CVAT Psych: Pleasant, cooperative Course Course Course Narrative: This is a rapid medical exam. Deferred additional HPi, ROS, PE to primary provider. 62 yo male with history of HLD, HTN, BPH, bladder here with concern that ochoa catheter is not draining x 1 hr. Of note patient is s/p greenlight procedure and bladder stone retrieval with post op course complicated by hematuria requiring CBI and admission then subsequent urinary retention requiring ochoa catheter placement. Bladder scan ordered. VSS Medications Administered Discontinued Medications Generic Name Dose Route Start Last Admin Trade Name Freq PRN Reason Stop Dose Admin Hydromorphone HCl 1 mg 06/25/23 23:01 06/25/23 23:30 Hydromorphone Hcl 1 Mg/Ml Syringe IVPUSH 06/25/23 23:02 1 mg ONCE STA Administration Protocol Lidocaine HCl 10 ml 06/25/23 23:01 06/25/23 23:30 Lidocaine Hcl 2 % Urojet 10 Ml Jel.Pf.Saira TOPICAL 06/25/23 23:02 10 ml ONCE ONE Administration Medical Decision Making Medical Decision Making [facility] Narrative: 62 yo male with PMH of HLD, HTN, BPH, bladder stones who underwent bladder stone retrieval and greenlight laser procedure on 06/11 was admitted afterwards for hematuria and underwent CBI, seen in the emergency department on 06/15/2023 for urinary retention requiring Ochoa catheter placement. Ochoa catheter now not working, patient is draining urine around the catheter. Physical examination revealed distended bladder with tenderness with palpation of the bladder. Patient was medicated with Dilaudid 1 mg IV and xylocaine was applied to the head of his penis prior to catheter insertion. patient's nurse reports that she was able to easily pass a 16 [place] coude catheter without difficulties and the patient tolerated the procedure well. Patient drained 1100 cc of urine, urine specimen was sent for culture. Patient was discharged home and advised follow-up with Dr. Bobo for further management. Differential Diagnosis Differential Diagnoses: The differential diagnosis associated with the presentation includes Differential diagnosis includes was not limited to urinary obstruction, Ochoa catheter failure, Ochoa catheter blockage secondary to blood clots, urinary tract infection Lab Data [facility] Lab Attestation statement: I reviewed the patient's lab results. my interpretation patient's Laboratory evaluation is as follows: Urinalysis revealed 1+ protein, 3+ blood, small leukocyte esterase. Microscopic revealed greater than 20 RBCs, 6-10 WBCs, 0 to 2 squamous epithelial cells, no bacteria - this is consistent with hematuria without infection Labs: Lab Results 06/26/23 Range/Units 00:06 Urine Color Yellow Urine Appearance Cloudy Urine pH 5.0 (5.0-9.0) Ur Specific [place] 1.015 (1.005-1.025) Urine Protein 30 (1+) H (Neg-Trace) mg/dL Urine Glucose (UA) Negative (Negative) mg/dL Urine Ketones 15 (Negative) mg/dL Urine Blood Large (3+) H (Negative) Urine Nitrite Negative (Negative) Ur Leukocyte Esterase Small (1+) H (Negative) Discharge Plan Discharge Clinical Impression: Urinary catheter (Ochoa) change required Patient Disposition: Home, Self-Care Instructions: Ochoa Catheter Placement and Care (ED) Additional Instructions: Your urinalysis revealed blood in your urine but no evidence for urinary tract infection. Follow-up with Dr. Bobo for further management of your symptoms and to discuss removal of the Ochoa catheter. Prescriptions: No Action losartan 50 mg tablet 50 mg PO DAILY Qty: 90 1RF pravastatin 40 mg tablet 40 mg PO DAILY 90 Days Qty: 90 1RF tamsulosin 0.4 mg capsule 0.4 mg PO BEDTIME 14 Days Qty: 14 0RF sennosides [Evac-U-Gen (sennosides)] 8.6 mg tablet 8.6 mg PO DAILY Qty: 30 0RF lactulose 10 gram/15 mL (15 mL) solution 20 g PO DAILY PRN (Reason: constipation) Qty: 1440 0RF sulfamethoxazole-trimethoprim [Bactrim] 400-80 mg tablet 1 tab PO DAILY Qty: 10 0RF tramadol 50 mg tablet 50 mg PO Q6H PRN (Reason: pain (scale score 1-3)) Qty: 8 0RF phenazopyridine [Pyridium] 100 mg tablet 100 mg PO TID PRN (Reason: Spasm) 4 Days Qty: 12 0RF finasteride 5 mg tablet 5 mg PO DAILY 90 Days Qty: 90 0RF
[2023-06-25 22:48] VITALS: BP 189/87; PULSE 78; RESP 20; TEMP 36.6; O2SAT 98
[2023-06-25] MEDS: Lidocaine HCl 2 % Urojet 10 ML JEL.PF.APP TOPICAL (23:30)
[2023-06-25] MEDS: HYDROmorphone HCl 1 MG/ML SYRINGE IVPUSH (23:30)
[2023-06-25 23:41] VITALS: BP 165/91; PULSE 89; RESP 18; O2SAT 100
[2023-06-26 00:13] LABS: Appearance Urine Cloudy; Color Urine Yellow; Glucose Urine UA Negative (Negative); Leukocyte Esterase Urine Small (1+) (Negative); Nitrite Urine Negative (Negative); Specific Gravity - Urine 1.015 (1.005-1.025); UMIC TRIGGER UACC YES; Urine Blood Large (3+) (Negative); Urine Ketones 15 mg/dL (Negative); Urine Protein 30 (1+) mg/dL (Neg-Trace)
[2023-06-26 00:18] LABS: Bacteria Urine None Seen (None Seen); Hyaline Casts Urine 0-2 /LPF (0-2); RBC Urine >20 /HPF (0-2); Squamous Epithelial Cell Urine 0-2 /HPF (0-2); UACC Culture Trigger YES
== END 2023-06-26 01:25 | disposition home or self-care (01) ==
PROVIDERS: Emergency Provider Emergency Medicine Emergency Medical Services; PCP Nurse Practitioner Family
DX: T83.098A Other mechanical complication of other urinary catheter, initial encounter (principal); Y73.8 Miscellaneous gastroenterology and urology devices associated with adverse incidents, not elsewhere classified; Y92.9 Unspecified place or not applicable; R10.30 Lower abdominal pain, unspecified; I10 Essential (primary) hypertension; E78.5 Hyperlipidemia, unspecified; Z79.02 Long term (current) use of antithrombotics/antiplatelets; Z79.899 Other long term (current) drug therapy
CPT/HCPCS: 51702; 51798; 81001; 87086; 96374; 99285; J1170

== ENCOUNTER → 2023-06-29 09:17 | Outpatient (BNVA) | payer MEDICARE, BC, SELFPAY | PROVIDERS: PCP Nurse Practitioner Family; Visit Provider Urology | DX: N40.1 Benign prostatic hyperplasia with lower urinary tract symptoms (principal); N13.8 Other obstructive and reflux uropathy | CPT/HCPCS: 51700; 51798 ==

== ENCOUNTER 2023-07-11 18:31 | Emergency (ER) | payer MEDICARE, BC, SELFPAY ==
--- NOTE | 2023-07-11 18:59 | ED.MALEGU ---
HPI - Male Genitourinary General Chief complaint: Urogenital-Male Stated complaint: difficulty urinating, penile pain Time Seen by Provider: 07/11/23 19:20 Source: patient and family (, Alis) Mode of arrival: ambulatory Limitations: no limitations History of Present Illness HPI Narrative: 63 yo male w/ hx of BPH and bladder stones (follows with Dr. Bobo), HTN, presents to the ED with difficulty urinating. Last urinated at 1400 today (5 hours ago), has since been dribbling. denies hematuria. feels like he needs to urinate but cannot. patient is s/p greenlight procedure and bladder stone retrieval with post op course complicated by hematuria requiring CBI and admission then subsequent urinary retention requiring ochoa catheter placement. Patient states he feels very full is had significant lower abdominal pressure. He states that his pain is 10/10 patient was seen by me on 06/25/2023 with a similar presentation, at that time the patient had a 16 Egyptian coude catheter placed and had 1100 cc urine drained from his bladder Related Data Previous Rx's Medication Instructions Recorded finasteride 5 mg tablet 5 mg PO DAILY 90 days #90 tabs 03/23/23 losartan 50 mg tablet 50 mg PO DAILY #90 tabs 05/02/23 pravastatin 40 mg tablet 40 mg PO DAILY 90 days #90 tabs 05/02/23 phenazopyridine 100 mg tablet 100 mg PO TID PRN Spasm 4 days #12 06/11/23 (Pyridium) tabs sulfamethoxazole 400 1 tab PO DAILY #10 tabs 06/11/23 mg-trimethoprim 80 mg tablet (Bactrim) tramadol 50 mg tablet 50 mg PO Q6H PRN pain (scale score 06/11/23 1-3) #8 tabs lactulose 10 gram/15 mL (15 mL) 20 g (30 mL) PO DAILY PRN 06/15/23 oral solution constipation #1,440 mL sennosides 8.6 mg tablet 8.6 mg PO DAILY #30 tabs 06/15/23 (Evac-U-Gen (sennosides)) tamsulosin 0.4 mg capsule 0.4 mg PO BEDTIME 30 days #30 caps 07/10/23 Allergies Allergy/AdvReac Type Severity Reaction Status Date / Time penicillin V Allergy Severe Swelling Verified 07/11/23 19:00 pet dander Allergy Intermediate Itchy Eyes Uncoded 05/23/23 18:16 trees Allergy Intermediate Itching Uncoded 05/23/23 18:16 Review of Systems Review of Systems: Yes all other systems are reviewed and are negative PMFSH Past Medical History Onset Date is defined in the Problem List Problems that require an onset date and time if occurred within 24 hrs of arrival to the ED Aortic Dissection and Rupture; Neurologic impairment; Cardiopulmonary Arrest; Endotracheal Intubation; Insertion or Replacement of Mechanical Circulatory Assist Device Medical History Trifascicular block HTN (hypertension) Renal cyst Hyperparathyroidism Lung nodule Barretts esophagus BPH (benign prostatic hyperplasia) Dyslipidemia Serum calcium elevated Chronic lower back pain Obesity Surgical History History of sigmoidoscopy History of endoscopy Cyst of face Fusion of lumbar spine Family History Family History Father ALS (amyotrophic lateral sclerosis) Dementia Mother High cholesterol HTN (hypertension) COPD (chronic obstructive pulmonary disease) Diverticulitis Maternal Grandmother Myocardial infarction Breast cancer Maternal Aunt Multiple sclerosis Paternal Aunt Multiple sclerosis Social History Social History Household Members: Spouse Housing: House Do you presently have visiting nurse or other home services: No Alcohol intake: current Alcohol intake frequency: does not drink Patient Tobacco Use Status: Never used Tobacco e-Cigarette/Vaping Use: Never Used Second Hand Smoke Exposure: No Advance Directives: No Advance Directives Information Provided: No service: No Current occupational status: retired Cognitive needs: No Hearing needs: No Vision needs: No Physical Exam Vital Signs: Vital Signs: Last Vital Signs Temp 98.0 F 07/11/23 19:00 Pulse 81 07/11/23 21:16 Resp 17 07/11/23 21:16 BP 118/75 07/11/23 21:16 Pulse Ox 96 07/11/23 21:16 O2 Del Method Room Air 07/11/23 21:16 BMI result Body Mass Index 34.7 Vital signs revealed an elevated blood pressure of 174/95 Exam General: Awake, alert in no distress Abdomen: soft, bladder is distended and tender to palpation Back: no vertebral tenderness, no CVAT Neuro: Awake, alert, oriented, normal speech Psych: Pleasant, cooperative Course Course Course Narrative: RME:?63 yo male w/ hx of BPH and bladder stones (follows with Dr. Bobo), HTN, presents to the ED with difficulty urinating. Last urinated at 1400 today (5 hours ago), has since been dribbling. denies hematuria. feels like he needs to urinate but cannot. patient is s/p greenlight procedure and bladder stone retrieval with post op course complicated by hematuria requiring CBI and admission then subsequent urinary retention requiring ochoa catheter placement. bladder scan ordered. Full HPI, ROS and PE to be performed by the primary ED provider. Medications Administered Discontinued Medications Generic Name Dose Route Start Last Admin Trade Name Freq PRN Reason Stop Dose Admin Hydromorphone HCl 1 mg 07/11/23 19:30 07/11/23 19:48 Hydromorphone Hcl 1 Mg/Ml Syringe IVPUSH 07/11/23 19:31 1 mg ONCE STA Administration Protocol Lidocaine HCl 10 ml 07/11/23 19:30 07/11/23 19:50 Lidocaine Hcl 2 % Urojet 10 Ml Jel.Pf.Saira TOPICAL 07/11/23 19:31 10 ml ONCE ONE Administration Lorazepam 1 mg 07/11/23 20:35 07/11/23 20:55 Lorazepam 1 Mg Tablet PO 07/11/23 20:36 1 mg ONCE ONE Administration Medical Decision Making Medical Decision Making [facility] Narrative: 63 yo male w/ hx of BPH and bladder stones (follows with Dr. Bobo), HTN, presents to the ED with difficulty urinating since 15:00 hours with abdominal pain and bladder distention on physical examination. Patient states that this is 4th time that he is required ED visit for urinary retention. Patient was last seen by you me on 06/25/2019 and had a 16 Egyptian coude catheter placed and drained 1100 cc of urine. Vital signs did reveal an elevated blood pressure, exam is consistent with bladder distention Following evaluation was ordered: CBC, CMP, urinalysis Patient was treated with the following: Dilaudid 1 mg IV, 10 cc urojet 2% lidocaine , 16 Egyptian coude catheter 21:34 Patient did feel better after the above treatment but was anxious and was given Ativan 1 mg orally My interpretation patient's laboratory evaluation as follows: CBC was normal BUN and creatinine were normal 11 and 1.04. Urinalysis revealed moderate blood, positive nitrates, positive leukocyte esterase. Microscopic revealed 0-2 RBCs, greater than 50 WBCs squamous cells, trace bacteria.The patient has had similar positive urine results in the past but has not had any bacterial growth Given his urinary retention, need for Ochoa catheter and urinalysis us microscopic results the patient will be started on cefuroxime 500 mg q.12 hours for 7 days Patient will be discharged to home with a Ochoa catheter in place he will need to follow-up with Dr. Bobo within 1 week Differential Diagnosis Differential Diagnoses: The differential diagnosis associated with the presentation includes Differential diagnosis includes was not limited to urinary tract infection, prostatitis, BPH, bladder dystonia, urinary tract Admission/Observation Consideration of admission/observation: Escalation of care including admission/observation considered Lab Data MDM Lab Attestation statement: I reviewed the patient's lab results. 07/11/23 19:41 07/11/23 19:41 Labs: Lab Results 07/11/23 07/11/23 Range/Units 19:41 20:43 WBC 9.4 (4.8-10.8) X10*3/uL RBC 4.79 (4.60-5.80) X10*6/uL Hgb 14.9 (14.0-18.0) g/dl Hct 43.9 (42.0-52.0) % MCV 91.6 (80.0-98.0) fL MCH 31.1 (27.0-33.0) pg MCHC 33.9 (31.0-36.0) g/dl RDW 12.6 (11.0-16.0) % Plt Count 232 (160-400) X10*3/uL MPV 8.2 L (9.4-12.4) fL Immature Gran % (Auto) 0.3 (0.0-0.4) % Neut % (Auto) 69.5 (45-73) % Lymph % (Auto) 19.9 L (20-40) % Meagher % (Auto) 9.7 (2-11) % Eos % (Auto) 0.3 (0-4) % Baso % (Auto) 0.3 (0-2) % Lymph # (Auto) 1.9 (1.2-4.9) X10*3/uL Meagher # (Auto) 0.9 (0.1-1.2) X10*3/uL Eos # (Auto) 0.0 (0.0-0.4) X10*3/uL Baso # (Auto) 0.0 (0.0-0.2) X10*3/uL Abs Immat Gran (auto) 0.03 (0.00-0.03) X10*3/uL Absolute Neuts (auto) 6.5 (2.0-8.3) x10*3/uL Absolute Nucleated RBC 0.000 (0.0-0.012) X10*3/uL Nucleated RBC % (auto) 0.0 (0.0-0.2) /100WBC Sodium 135 (135-145) mmol/L Potassium 3.7 (3.3-5.1) mmol/L Chloride 103 (96-108) mmol/L Carbon Dioxide 21 L (22-29) mmol/L Anion Gap 15 (12-20) BUN 11 (9-16) mg/dL Creatinine 1.04 (0.5-1.4) mg/dL Estim Creat Clear Calc 87.7 Estimated GFR > 60 Random Glucose 102 (60-115) mg/dL Calcium 10.6 H (8.4-10.2) mg/dL Total Bilirubin 0.6 (0.0-1.0) mg/dL AST 27 (5-37) U/L ALT 37 (0-40) U/L Alkaline Phosphatase 71 (39-117) U/L Total Protein 7.6 (6.5-8.0) g/dL Albumin 4.3 (3.5-5.0) g/dL Urine Color Yellow Urine Appearance Cloudy Urine pH 5.5 (5.0-9.0) Ur Specific [place] <= 1.005 (1.005-1.025) Urine Protein Trace (Neg-Trace) mg/dL Urine Glucose (UA) Negative (Negative) mg/dL Urine Ketones 15 (Negative) mg/dL Urine Blood Moderate (2+) H (Negative) Urine Nitrite Positive H (Negative) Ur Leukocyte Esterase Large (3+) H (Negative) Urine RBC 0-2 (0-2) /HPF Urine WBC >50 H (0-5) /HPF Ur Squamous Epith Cells 0-2 (0-2) /HPF Urine Bacteria Trace (None Seen) Hyaline Casts 3-5 (0-2) /LPF Independent Historian Clinical information obtained from an independent historian. History obtained from or confirmed by: Spouse Prescription Management I considered prescription management with: Antibiotic Chronic Conditions Patient?s care impacted by: Hypertension Discharge Plan Discharge Clinical Impression: Acute urinary retention, Urinary tract infection Patient Disposition: Home, Self-Care Instructions: Urinary Retention in Men (ED), Ochoa Catheter Placement and Care (ED) Prescriptions: No Action losartan 50 mg tablet 50 mg PO DAILY Qty: 90 1RF pravastatin 40 mg tablet 40 mg PO DAILY 90 Days Qty: 90 1RF tamsulosin 0.4 mg capsule 0.4 mg PO BEDTIME 30 Days Qty: 30 0RF sennosides [Evac-U-Gen (sennosides)] 8.6 mg tablet 8.6 mg PO DAILY Qty: 30 0RF lactulose 10 gram/15 mL (15 mL) solution 20 g PO DAILY PRN (Reason: constipation) Qty: 1440 0RF sulfamethoxazole-trimethoprim [Bactrim] 400-80 mg tablet 1 tab PO DAILY Qty: 10 0RF tramadol 50 mg tablet 50 mg PO Q6H PRN (Reason: pain (scale score 1-3)) Qty: 8 0RF phenazopyridine [Pyridium] 100 mg tablet 100 mg PO TID PRN (Reason: Spasm) 4 Days Qty: 12 0RF finasteride 5 mg tablet 5 mg PO DAILY 90 Days Qty: 90 0RF
[2023-07-11 19:00] VITALS: BP 174/95; PULSE 100; RESP 20; TEMP 36.7; O2SAT 96; BMI 34.7
[2023-07-11 19:44] LABS: MANUAL DIFF FLAG NO
[2023-07-11 19:46] LABS: Basophils Percent Auto 0.3 % (0-2); Eosinophils Percent Auto 0.3 % (0-4); Hematocrit 43.9 % (42.0-52.0); Hemoglobin 14.9 g/dl (14.0-18.0); Imm Gran Abs Auto 0.03 X10*3/uL (0.00-0.03); Imm Gran Pct Auto 0.3 % (0.0-0.4); Lymphocytes Absolute Auto 1.9 X10*3/uL (1.2-4.9); Lymphocytes Percent Auto 19.9 % (20-40); Mean Corpuscular HGB Conc 33.9 g/dl (31.0-36.0); Mean Corpuscular Hemoglobin 31.1 pg (27.0-33.0); Mean Corpuscular Volume 91.6 fL (80.0-98.0); Mean Platelet Volume 8.2 fL (9.4-12.4); Monocytes Absolute Auto 0.9 X10*3/uL (0.1-1.2); Monocytes Percent Auto 9.7 % (2-11); Neutrophils Absolute Auto 6.5 x10*3/uL (2.0-8.3); Neutrophils Percent Auto 69.5 % (45-73); Platelet Count 232 X10*3/uL (160-400); Red Blood Count 4.79 X10*6/uL (4.60-5.80); Red Cell Distribution Width 12.6 % (11.0-16.0); White Blood Count 9.4 X10*3/uL (4.8-10.8)
[2023-07-11] MEDS: HYDROmorphone HCl 1 MG/ML SYRINGE IVPUSH (19:48)
[2023-07-11] MEDS: Lidocaine HCl 2 % Urojet 10 ML JEL.PF.APP TOPICAL (19:50)
[2023-07-11 20:06] LABS: Alanine Aminotransferase 37 U/L (0-40); Albumin Level 4.3 g/dL (3.5-5.0); Alkaline Phosphatase 71 U/L (39-117); Anion Gap 15 (12-20); Aspartate Amino Transferase 27 U/L (5-37); Bilirubin Total 0.6 mg/dL (0.0-1.0); Blood Urea Nitrogen 11 mg/dL (9-16); Calcium 10.6 mg/dL (8.4-10.2); Carbon Dioxide 21 mmol/L (22-29); Chloride 103 mmol/L (96-108); Creatinine Clr Calc Pharmacy 87.7; Estimated Glomerular Filt Rate > 60; Glucose Random 102 mg/dL (60-115); Potassium 3.7 mmol/L (3.3-5.1); Sodium 135 mmol/L (135-145); Total Protein 7.6 g/dL (6.5-8.0)
--- NOTE | 2023-07-11 20:30 | PC.NURSE ---
pt reported urinary retention, attempted once to urinate on own however still unable to. 16fr coude tip ochoa inserted pt tolerated well. pt requested balloon be only filled with 20 mL; it is a 30 ML balloon. ok per dr. robison. draining clear yellow urine. pt reported feeling a sharp pain in L. side of chest lasted few seconds but resolved. still wanted to speak with dr. robison. nsr on monitor. vss. nad. resp even and unlabored. call aquino within reach.
[2023-07-11 20:52] LABS: Appearance Urine Cloudy; Color Urine Yellow; Glucose Urine UA Negative (Negative); Leukocyte Esterase Urine Large (3+) (Negative); Nitrite Urine Positive (Negative); PH 5.5 (5.0-9.0); Specific Gravity - Urine <= 1.005 (1.005-1.025); UMIC TRIGGER UACC YES; Urine Blood Moderate (2+) (Negative); Urine Ketones 15 mg/dL (Negative); Urine Protein Trace mg/dL (Neg-Trace)
[2023-07-11] MEDS: LORazepam 1 MG TABLET PO (20:55)
[2023-07-11 21:07] LABS: Bacteria Urine Trace (None Seen); RBC Urine 0-2 /HPF (0-2); Squamous Epithelial Cell Urine 0-2 /HPF (0-2); UACC Culture Trigger YES; WBC Urine >50 /HPF (0-5)
[2023-07-11 21:16] VITALS: BP 118/75; PULSE 81; RESP 17; O2SAT 96
[2023-07-11] MEDS: cefuroxime axetiL 500 MG TABLET PO (22:11)
[2023-07-11 22:32] VITALS: BP 126/76; PULSE 96; RESP 16; O2SAT 97
== END 2023-07-11 22:34 | disposition home or self-care (01) ==
PROVIDERS: Emergency Provider Emergency Medicine Emergency Medical Services; PCP Nurse Practitioner Family
DX: R33.9 Retention of urine, unspecified (principal); N39.0 Urinary tract infection, site not specified; I10 Essential (primary) hypertension; E78.5 Hyperlipidemia, unspecified; Z79.02 Long term (current) use of antithrombotics/antiplatelets; Z79.899 Other long term (current) drug therapy
CPT/HCPCS: 36415; 51702; 51798; 80053; 81001; 85025; 87086; 87088; 87186; 96374; 99284; 99285; J1170

== ENCOUNTER 2023-07-12 15:36 | Outpatient (AMB) | payer MEDICARE, BC, SELFPAY ==
--- NOTE | 2023-07-12 15:38 | MHC.OFFVIS ---
Intake Intake Visit Reasons: discuss retention/CIC Intake Note: Patient is Present for Telephone Follow Up ER/CIC Urology Med: Tamsulosin (Not taking Finasteride any more) Antibiotic Allergy: Penicillin Blood Thinner:none Allergies penicillin V Allergy (Severe, Verified 07/11/23 19:00) Swelling pet dander Allergy (Intermediate, Uncoded 05/23/23 18:16) Itchy Eyes trees Allergy (Intermediate, Uncoded 05/23/23 18:16) Itching HPI HPI Comments History of Present Illness Details Presley is a very pleasant male. He is seen for the following urologic conditions - lower urinary tract symptoms - nocturia - nephrolithiasis - renal cyst Telemedicine Evaluation 15 min Consultation [employer] Saira Video attempted Last night went to emergency room and Greenwood catheter placed 1100 cc found in bladder Discussion today regarding Greenwood catheter for 1 month versus learning CIC He is interested in learning clean intermittent catheterization Will start with catheterization 4 times per day. This is expected to last for an indeterminate amount of time. Will have appointment tomorrow afternoon with nursing for catheter instructions Lower Urinary Tract Symptoms: Recent CT scan showing bladder stones with enlarged prostate 06/15 underwent laser of stones with partial laser of prostate GreenLight Current visit is for further evaluation of lower urinary tract symptoms particularly weakness of stream and nocturia Current treatment includes tamsulosin Prior treatments include none. Prostate Symptom Score Mild (0-8), Bother 2, PVR runs in range of 50-100 cc Symptoms include weak stream, nocturia (>2), and are stable - nocturia RN weakness of stream improving PSA Mar 2016 1.5, 05/12 2.8, 05/14 2.1, 01/14 2.8 Imaging - 06/13 US prostate 120 g with bladder wall thickening Testing at next visit will include Prostate Symptom Score, uroflow. Treatment plan continue alpha-sammy Nephrolithiasis Asymptomatic Imaging - 06/13 renal ultrasound - multiple 5 mm stones on right side, left side with 5 cm renal cysts multiple - 12/14 renal ultrasound 5 mm stone left side, multiple bilateral cysts - 01/14 renal ultrasound no evidence of stones, multiple bilateral stable cysts PFSH Medical History Trifascicular block HTN (hypertension) Renal cyst Hyperparathyroidism Lung nodule Barretts esophagus BPH (benign prostatic hyperplasia) Dyslipidemia Serum calcium elevated Chronic lower back pain Obesity Surgical History History of sigmoidoscopy History of endoscopy Cyst of face Fusion of lumbar spine Family History Father ALS (amyotrophic lateral sclerosis) Dementia Mother High cholesterol HTN (hypertension) COPD (chronic obstructive pulmonary disease) Diverticulitis Maternal Grandmother Myocardial infarction Breast cancer Maternal Aunt Multiple sclerosis Paternal Aunt Multiple sclerosis Social History Household Members: Spouse Housing: House Do you presently have visiting nurse or other home services: No Alcohol intake: current Alcohol intake frequency: does not drink Patient Tobacco Use Status: Never used Tobacco e-Cigarette/Vaping Use: Never Used Second Hand Smoke Exposure: No service: No Current occupational status: retired Cognitive needs: No Hearing needs: No Vision needs: No Review of Systems Const All systems reviewed & are unremarkable except as noted in HPI and below Reports no additional complaints Resp Reports no additional complaints GI Reports no additional complaints Reports as per HPI Musc Reports no additional complaints Physical Exam Telemedicine evaluation Appropriate responses Regular breathing rate and rhythm HEENT Head: Yes normal to inspection Ears: hearing grossly normal bilaterally Eyes General: appearance normal, both eyes and all related structures Neck Neck: Yes normal visual inspection Chest Chest palpation & inspection: normal inspection of the chest Resp Effort & Inspection: normal respiratory effort and able to speak in complete sentences Assessment & Plan Assessment & Plan (1) Bladder stones: Code(s): N21.0 - Calculus in bladder (2) BPH w urinary obs/LUTS: Code(s): N40.1 - Benign prostatic hyperplasia with lower urinary tract symptoms; N13.8 - Other obstructive and reflux uropathy Plan CIC 4 times a day Extended timeframe 14 Romansh Patient Instructions: Imaging studies, laboratory and physical exam results were discussed and reviewed in detail. No major barriers to patient understanding were identified. An opportunity to ask questions regarding the treatment plan was provided. All questions were answered. The patient expressed understanding and agreement with the above treatment plan. The patient is aware they should contact our office by phone for worsening of their current condition or the appearance of new urologic symptoms. Compliance is encouraged with any medications and followup testing that is ordered. It is a privilege to participate in the urologic care of your patient. If you have any questions or concerns regarding treatment for the above conditions, or other urologic issues, please do not hesitate to contact me. The office telephone contact is [phone]. This note is constructed using voice recognition software. While every effort has been made to ensure accuracy offset press operator apprentice errors may have been included. Yours sincerely, Dr Som Bobo MD, [facility] - Urology Providers of Expert, Compassionate Care for the Genitourinary System Telehealth Telehealth Location of provider rendering services: practice address Location of patient: address on file Patient Identification confirmed using: Name, : Yes Telehealth method: video Patient verbally consented to treatment: Yes Patient verbally consented to billing insurance company: Yes Patient informed of any privacy concerns related to visit: Yes Coding Level of Care Code Tele Est Pt Level 4 (59285) Diagnoses Bladder stones N21.0 BPH w urinary obs/LUTS N40.1; N13.8
== END 2023-07-12 16:35 | disposition home or self-care (01) ==
LOC: HO.HUSH 15:36
PROVIDERS: PCP Nurse Practitioner Family; Visit Provider Urology
DX: N21.0 Calculus in bladder (principal); N40.1 Benign prostatic hyperplasia with lower urinary tract symptoms; N13.8 Other obstructive and reflux uropathy
CPT/HCPCS: 99214

== ENCOUNTER → 2023-07-12 15:36 | Outpatient (BNVA) | payer MEDICARE, BC, SELFPAY | PROVIDERS: PCP Nurse Practitioner Family; Visit Provider Urology ==

== ENCOUNTER → 2023-07-13 13:24 | Outpatient (BNVA) | payer MEDICARE, BC, SELFPAY | PROVIDERS: PCP Nurse Practitioner Family; Visit Provider Urology | DX: N13.8 Other obstructive and reflux uropathy (principal) | CPT/HCPCS: 51798 ==

== ENCOUNTER 2023-07-31 14:05 | Outpatient (AMB) | payer MEDICARE, BC, SELFPAY ==
--- NOTE | 2023-07-31 14:35 | A.OFFVIS_ITS ---
Intake Intake Visit Reasons: 4w follow up(cic) Intake Note: Patient is Present for Follow Up cic Urology Medication: Finasteride, Tamsulosin Antibiotic Allergies: Penicillin Blood Thinners: None Allergies penicillin V Allergy (Severe, Verified 07/31/23 14:41) Swelling pet dander Allergy (Intermediate, Uncoded 07/31/23 14:41) Itchy Eyes trees Allergy (Intermediate, Uncoded 07/31/23 14:41) Itching HPI HPI Comments History of Present Illness Details Presley is a very pleasant male. He is seen for the following urologic conditions - lower urinary tract symptoms - nocturia - nephrolithiasis - renal cyst Has been doing catheterization 2 times per day Proximally 3-5 oz left over when he catheterizes The this is significantly reducing Does have some urge frequency Reassurance provided Healing process may take up to 3 months If there are concerns at that point we will perform cystoscopy He does understand that baseline bladder issues contribute in his situation given that he formed bladder stones Lower Urinary Tract Symptoms: Recent CT scan showing bladder stones with enlarged prostate 06/15 underwent laser of stones with par tial laser of prostate GreenLight Current visit is for further evaluation of lower urinary tract symptoms particularly weakness of stream and nocturia Current treatment includes tamsulosin Prior treatments include none. Prostate Symptom Score Mild (0-8), Bother 2, PVR runs in range of 50-100 cc Symptoms include weak stream, nocturia (>2), and are stable - nocturia RN weakness of stream improving PSA Mar 2016 1.5, 05/12 2.8, 05/14 2.1, 01/14 2.8 Imaging - 06/13 US prostate 120 g with bladder wall thickening Testing at next visit will include Prostate Symptom Score, uroflow. Treatment plan continue alpha-sammy Nephrolithiasis Asymptomatic Imaging - 06/13 renal ultrasound - multiple 5 mm stones on right side, left side with 5 cm renal cysts multiple - 12/14 renal ultrasound 5 mm stone left side, multiple bilateral cysts - 01/14 renal ultrasound no evidence of stones, multiple bilateral stable cysts PFSH Medical History Trifascicular block HTN (hypertension) Renal cyst Hyperparathyroidism Lung nodule Barretts esophagus BPH (benign prostatic hyperplasia) Dyslipidemia Serum calcium elevated Chronic lower back pain Obesity Surgical History History of sigmoidoscopy History of endoscopy Cyst of face Fusion of lumbar spine Family History Father ALS (amyotrophic lateral sclerosis) Dementia Mother High cholesterol HTN (hypertension) COPD (chronic obstructive pulmonary disease) Diverticulitis Maternal Grandmother Myocardial infarction Breast cancer Maternal Aunt Multiple sclerosis Paternal Aunt Multiple sclerosis Social History Household Members: Spouse Housing: House Do you presently have visiting nurse or other home services: No Alcohol intake: current Alcohol intake frequency: does not drink Patient Tobacco Use Status: Never used Tobacco e-Cigarette/Vaping Use: Never Used Second Hand Smoke Exposure: No service: No Current occupational status: retired Cognitive needs: No Hearing needs: No Vision needs: No Review of Systems Const Denies chills and Denies fever(s) Card Reports no additional complaints and Denies syncope Resp Denies cough GI Denies abdominal pain and Denies heartburn Reports as per HPI and Denies change in libido Neuro Denies syncope Psych Denies change in libido Endo Denies change in libido Physical Exam Const General: cooperative, healthy appearing, comfortable and no acute distress Orientation/consciousness: patient oriented x3 HEENT Face and sinus: Yes normal facial exam Mouth: moist mucous membranes Neck Neck: Yes normal visual inspection, Yes full ROM and Yes trachea midline Chest Chest palpation & inspection: normal inspection of the chest Resp Effort & Inspection: normal respiratory effort, able to speak in complete sen tences and no respiratory distress GI Inspection: Yes normal to inspection Back/Spine/Pelvis Cervical Spine: normal cervical lordosis Thoracic/Lumbar Spine: thoracic and lumbar spine normal to inspection Skin General skin exam: no rashes or lesions noted Neuro General: patient oriented x3, gait normal, tone normal and moves all extremities Extrem General: Yes normal to inspection and Yes capillary refill normal Assessment & Plan Assessment & Plan (1) Bladder stones: Code(s): N21.0 - Calculus in bladder (2) BPH w urinary obs/LUTS: Code(s): N40.1 - Benign prostatic hyperplasia with lower urinary tract symptoms; N13.8 - Other obstructive and reflux uropathy Plan Six week follow-up PVR Continue prostate medications Patient Instructions: Imaging studies, laboratory and physical exam results were discussed and reviewed in detail. No major barriers to patient understanding were identified. An opportunity to ask questions regarding the treatment plan was provided. All questions were answered. The patient expressed understanding and agreement with the above treatment plan. The patient is aware they should contact our office by phone for worsening of their current condition or the appearance of new urologic symptoms. Compliance is encouraged with any medications and followup testing that is ordered. It is a privilege to participate in the urologic care of your patient. If you have any questions or concerns regarding treatment for the above conditions, or other urologic issues, please do not hesitate to contact me. The office telephone contact is [phone]. This note is constructed using voice recognition software. While every effort has been made to ensure accuracy technology director errors may have been included. Yours sincerely, Dr Som Bobo MD, DANTE [facility] - Urology Providers of Expert, Compassionate Care for the Genitourinary System Coding Level of Care Code Est Pt Level 3 (42106) Diagnoses Bladder stones N21.0 BPH w urinary obs/LUTS N40.1; N13.8
== END 2023-07-31 15:16 | disposition home or self-care (01) ==
PROVIDERS: PCP Nurse Practitioner Family; Visit Provider Urology
DX: N21.0 Calculus in bladder (principal); N40.1 Benign prostatic hyperplasia with lower urinary tract symptoms; N13.8 Other obstructive and reflux uropathy
CPT/HCPCS: 99024

== ENCOUNTER → 2023-07-31 14:05 | Outpatient (BNVA) | payer MEDICARE, BC, SELFPAY | PROVIDERS: PCP Nurse Practitioner Family; Visit Provider Urology | DX: N40.1 Benign prostatic hyperplasia with lower urinary tract symptoms (principal); N13.8 Other obstructive and reflux uropathy; N21.0 Calculus in bladder | CPT/HCPCS: 99212 ==

== ENCOUNTER 2023-08-27 13:53 | Outpatient (AMB) | payer MEDICARE, BC, SELFPAY ==
--- NOTE | 2023-08-27 13:55 | A.OFFVIS_ITS ---
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 At that time we discussed about the findings of left anterior fascicular block as well as incomplete right bundle-branch block. Since then he has seen [facility] for preoperative cardiovascular risk stratification. No interventions have been made. Said he exercises regularly and goes for hiking and can hike for 1-3 miles up to elevation of 2 150-300 feet. He has no symptoms related to it. However since his prostate surgery in May he has not been able to do that because of pain. He also is limited by issues with the back which limits him walking for longer distances. Denies any symptoms of lightheadedness, syncope. He describes of sharp pain in the 2nd 3rd intercostal space which has been present for many many years and has been labeled to be related to costochondritis. He also recently has developed some pain in the left thoracic area which is not exertion related. Also last for few seconds. Denies any palpitations. Denies any heart failure symptoms. Has history of hypertension hyperlipidemia which as per him are well controlled. [facility] Medical History Trifascicular block HTN (hypertension) Renal cyst Hyperparathyroidism Lung nodule Barretts esophagus BPH (benign prostatic hyperplasia) Dyslipidemia Serum calcium elevated Chronic lower back pain Obesity Surgical History History of sigmoidoscopy History of endoscopy Cyst of face Fusion of lumbar spine Family History Father ALS (amyotrophic lateral sclerosis) Dementia Mother High cholesterol HTN (hypertension) COPD (chronic obstructive pulmonary disease) Diverticulitis Maternal Grandmother Myocardial infarction Breast cancer Maternal Aunt Multiple sclerosis Paternal Aunt Multiple sclerosis Social History Household Members: Spouse Housing: House Do you presently have visiting nurse or other home services: No Alcohol intake: current Alcohol intake frequency: does not drink Patient Tobacco Use Status: Never used Tobacco e-Cigarette/Vaping Use: Never Used Second Hand Smoke Exposure: No service: No Current occupational status: retired Cognitive needs: No Hearing needs: No Vision needs: No Review of Systems Const Denies chills, Denies daytime sleepiness, Denies fatigue, Denies fever(s), Denies frequent falls, Denies poor appetite, Denies snoring, Denies stops breathing during sleep, Denies weakness, Denies weight gain and Denies weight loss Eyes Denies loss of vision ENT Denies dizziness and Denies hearing loss Card Denies chest pain, Denies claudication, Denies leg edema, Denies ligh theadedness, Denies palpitations, Denies dyspnea, Denies dyspnea on exertion and Denies orthopnea Resp Denies cough, Denies excessive phlegm production, Denies dyspnea, Denies dyspnea on exertion, Denies snoring and Denies wheezing GI Denies abdominal pain, Denies hematochezia, Denies change in bowel habits, Denies nausea and Denies vomiting Denies dysuria and Denies urinary frequency Musc Denies arthralgias, Denies muscle weakness, Denies numbness and Denies other (frequent falls) Skin/Breast Denies nail changes and Denies rash Neuro Denies Abnormal speech present, Denies dizziness, Denies frequent falls, Denies loss of vision, Denies memory loss, Denies numbness and Denies weakness Psych Denies depression and Denies memory loss Endo Denies fatigue and Denies palpitations Ean/Lymph Reports easy bruising and Reports other (anemia) Aller/Immun Denies wheezing Physical Exam Vital Signs: Last Vital Signs Pulse 82 08/27/23 13:56 BP 136/80 08/27/23 13:56 BMI result Body Mass Index 33.2 Const General: cooperative, no acute distress, alert and awake Nutritional Appearance: obese Orientation/consciousness: patient oriented x3 Limitations: no limitations HEENT Head: Yes normocephalic and Yes atraumatic Neck Neck: Yes trachea midline, Yes supple and Yes no JVD Resp Effort & Inspection: normal respiratory effort Auscultation: clear to auscultation bilaterally Cardio Jugular venous distension: no JVD Palpation: normal PMI Rate: regular rate Rhythm: regular rhythm Heart sounds: S1 normal heart sound present, S2 normal heart sound present, no click, no gallops, no murmurs and no rubs Bruits: no carotid bruits GI Auscultation: normal bowel sounds Skin General skin exam: no rashes or lesions noted Neuro General: patient oriented x3 and no focal motor deficits Speech: No Abnormal speech present Extrem General: Yes no clubbing, cyanosis or edema Office Procedures EKG Details: EKG shows normal sinus rhythm with left anterior fascicular block at 82 beats per minute [id number], Complete Assessment & Plan Assessment & Plan (1) Left anterior fascicular block: Code(s): I44.4 - Left anterior fascicular block Plan: Patient with isolated left anterior fascicular block on EKG today. Benign nature of isolated left anterior fascicular block was discussed. No further workup is indicated as workup in the past has been within normal limits. He does not have advanced AV block at this point time. Low likelihood of progressing conduction system abnormality was noted. EKG should be performed on annual basis. (2) HTN (hypertension): Comment: please keep an eye on your BP Code(s): I10 - Essential (primary) hypertension Plan: Hypertension which is currently well optimized advised to monitor blood pressure at home maintain a log. Goal blood pressure less than 130/84. Continue current therapy. Continue low-salt diet. Lipids are being managed by you with goal LDL definitely less than 100 mg/dL. I would suggest further risk stratification could coronary calcium score to stratify cardiovascular risk. If his calcium score is 0 no change in therapy is recommended. If his calcium score is elevated greater than 400 require further testing with a stress test to evaluate for obstructive coronary artery disease. Otherwise more intense lipid modification goal LDL less than 70 mg/dL will be pursued. He is encouraged to continue to participate in physical activity as tolerated. Will follow up in the clinic 1 year's time, sooner p.r.n.. Thank you for allowing me to partake in his care Orders: Orders CT Coronary Calcium Score 1 Week I10 - Essential (primary) hypertension Coding Level of Care Code New Pt Level 4 (06842) Diagnoses Left anterior fascicular block I44.4 HTN (hypertension) I10 CPT Codes EKG - CPT: 59922-[id number], Complete ([id number])
[2023-08-27 13:56] VITALS: BP 136/80; PULSE 82; BMI 33.2
== END 2023-08-27 14:35 | disposition home or self-care (01) ==
PROVIDERS: PCP Nurse Practitioner Family; Visit Provider Internal Medicine Cardiovascular Disease
DX: I44.4 Left anterior fascicular block (principal); I10 Essential (primary) hypertension
CPT/HCPCS: 93010; 99214

== ENCOUNTER → 2023-08-27 13:53 | Outpatient (BNVA) | payer MEDICARE, BC, SELFPAY | PROVIDERS: PCP Nurse Practitioner Family; Visit Provider Internal Medicine Cardiovascular Disease | DX: I44.4 Left anterior fascicular block (principal); I10 Essential (primary) hypertension | CPT/HCPCS: 93005; 99212 ==

== ENCOUNTER 2023-09-11 09:42 | Outpatient (REF) | payer MEDICARE, BC, SELFPAY | END 2023-09-11 09:43 | disposition home or self-care (01) | LOC: HO.LAB 09:42 | PROVIDERS: PCP Nurse Practitioner Family; Visit Provider Urology | DX: N39.0 Urinary tract infection, site not specified (principal) | CPT/HCPCS: 51798; 81003; 87086; 87088; 99212 ==

== ENCOUNTER 2023-09-11 09:42 | Outpatient (AMB) | payer MEDICARE, BC, SELFPAY ==
--- NOTE | 2023-09-11 09:54 | MHC.OFFVIS ---
Intake Intake Visit Reasons: 6w/PVR Intake Note: Patient is Present for Follow Up pvr Urology Medication: Tamsulosin Antibiotic Allergies: Penicillin Blood Thinners: None PVR: 40 Allergies penicillin V Allergy (Severe, Verified 09/11/23 09:57) Swelling pet dander Allergy (Intermediate, Uncoded 09/11/23 09:57) Itchy Eyes trees Allergy (Intermediate, Uncoded 09/11/23 09:57) Itching HPI HPI Comments History of Present Illness Details Presley is a very pleasant male. He is seen for the following urologic conditions - lower urinary tract symptoms - nocturia - nephrolithiasis - renal cyst Potential urinary infection today PVR 40 cc Bactrim 5 days Start methenamine with vitamin-C for suppression GreenLight laser 06/16 with bladder stone removal 3 month follow-up Lower Urinary Tract Symptoms: Initial CT scan showing bladder stones with enlarged prostate 06/16 underwent laser of stones with partial laser of prostate GreenLight Current visit is for further evaluation of lower urinary tract symptoms particularly weakness of stream and nocturia Current treatment includes tamsulosin Prior treatments include none. Prostate Symptom Score Mild (0-8), Bother 2, PVR runs in range of 50-100 cc Symptoms include weak stream, nocturia (>2), and are stable - nocturia RN weakness of stream improving PSA Mar 2016 1.5, 05/12 2.8, 05/14 2.1, 01/14 2.8 Imaging - 06/13 US prostate 120 g with bladder wall thickening Testing at next visit will include Prostate Symptom Score, uroflow. Treatment plan continue alpha-sammy Nephrolithiasis Asymptomatic Imaging - 06/13 renal ultrasound - multiple 5 mm stones on right side, left side with 5 cm renal cysts multiple - 12/14 renal ultrasound 5 mm stone left side, multiple bilateral cysts - 01/14 renal ultrasound no evidence of stones, multiple bilateral stable cysts PFSH Medical History Trifascicular block HTN (hypertension) Renal cyst Hyperparathyroidism Lung nodule Barretts esophagus BPH (benign prostatic hyperplasia) Dyslipidemia Serum calcium elevated Chronic lower back pain Obesity Surgical History History of sigmoidoscopy History of endoscopy Cyst of face Fusion of lumbar spine Family History Father ALS (amyotrophic lateral sclerosis) Dementia Mother High cholesterol HTN (hypertension) COPD (chronic obstructive pulmonary disease) Diverticulitis Maternal Grandmother Myocardial infarction Breast cancer Maternal Aunt Multiple sclerosis Paternal Aunt Multiple sclerosis Social History Household Members: Spouse Housing: House Do you presently have visiting nurse or other home services: No Alcohol intake: current Alcohol intake frequency: does not drink Patient Tobacco Use Status: Never used Tobacco e-Cigarette/Vaping Use: Never Used Second Hand Smoke Exposure: No service: No Current occupational status: retired Cognitive needs: No Hearing needs: No Vision needs: No Review of Systems Const Denies chills and Denies fever(s) Card Reports no additional complaints and Denies syncope Resp Denies cough GI Denies abdominal pain and Denies heartburn Reports as per HPI and Denies change in libido Neuro Denies syncope Psych Denies change in libido Endo Denies change in libido Physical Exam Const General: cooperative, healthy appearing, comfortable and no acute distress Orientation/consciousness: patient oriented x3 HEENT Face and sinus: Yes normal facial exam Mouth: moist mucous membranes Neck Neck: Yes normal visual inspection, Yes full ROM and Yes trachea midline Chest Chest palpation & inspection: normal inspection of the chest Resp Effort & Inspection: normal respiratory effort, able to speak in complete sentences and no respiratory distress GI Inspection: Yes normal to inspection Back/Spine/Pelvis Cervical Spine: normal cervical lordosis Thoracic/Lumbar Spine: thoracic and lumbar spine normal to inspection Skin General skin exam: no rashes or lesions noted Neuro General: patient oriented x3, gait normal, tone normal and moves all extremities Extrem General: Yes normal to inspection and Yes capillary refill normal Office Procedures Post Void Residual Post Residual Void Post Void Residual (PVR): 40 [id number] Void Residual by ultrasound Results AMB Urinalysis, Automated UA Leukoctes 70 Brandin/uL Last Edit by MALIKA Gongora on 09/11/23 10:11 UA Nitrite Positive Last Edit by MALIKA Gongora on 09/11/23 10:11 UA Urobilinogen 0.2 mg/dL Last Edit by MALIKA Gongora on 09/11/23 10:11 UA Protein 1 mg/dL Last Edit by CAROL GongoraA on 09/11/23 10:11 UA pH 5.0 Last Edit by Elizabeth Mg, RMA on 09/11/23 10:11 UA Blood 80 Srikanth/uL Last Edit by Elizabeth Mg, RMA on 09/11/23 10:11 UA Specific [place] 1.025 Last Edit by Elizabeth Mg, RMA on 09/11/23 10:11 UA Ketone Negative Last Edit by Elizabeth Mg, RMA on 09/11/23 10:11 UA Bilirubin 0 mg/dL Last Edit by Elizabeth Mg, RMA on 09/11/23 10:11 UA Glucose 0 mg/dL Last Edit by Elizabeth Mg, A on 09/11/23 10:11 Assessment & Plan Assessment & Plan (1) Chronic UTI (urinary tract infection): Code(s): N39.0 - Urinary tract infection, site not specified (2) BPH w urinary obs/LUTS: Code(s): N40.1 - Benign prostatic hyperplasia with lower urinary tract symptoms; N13.8 - Other obstructive and reflux uropathy Plan Three-month follow-up. Orders: Orders AMB Urinalysis Automated Today Z13.9 - Encounter for screening, unspecified Urine Culture Today N39.0 - Urinary tract infection, site not specified AMB Post Void Residual by ultrasound Today N13.8 - Other obstructive and reflux uropathy, N40.1 - Benign prostatic hyperplasia with lower urinary tract symptoms Medications: New sulfamethoxazole-trimethoprim 800-160 mg (Bactrim DS) 1 tab PO BID 5 days 10 tabs 0RF N13.8 - Other obstructive and reflux uropathy, N39.0 - Urinary tract infection, site not specified, N40.1 - Benign prostatic hyperplasia with lower urinary tract symptoms ascorbic acid (vitamin C) 1 g PO DAILY 90 tabs 1RF 90 days N13.8 - Other obstructive and reflux uropathy, N39.0 - Urinary tract infection, site not specified, N40.1 - Benign prostatic hyperplasia with lower urinary tract symptoms methenamine hippurate 1 g PO DAILY 90 tabs 1RF 90 days N13.8 - Other obstructive and reflux uropathy, N39.0 - Urinary tract infection, site not specified, N40.1 - Benign prostatic hyperplasia with lower urinary tract symptoms Patient Instructions: Imaging studies, laboratory and physical exam results were discussed and reviewed in detail. No major barriers to patient understanding were identified. An opportunity to ask questions regarding the treatment plan was provided. All questions were answered. The patient expressed understanding and agreement with the above treatment plan. The patient is aware they should contact our office by phone for worsening of their current condition or the appearance of new urologic symptoms. Compliance is encouraged with any medications and followup testing that is ordered. It is a privilege to participate in the urologic care of your patient. If you have any questions or concerns regarding treatment for the above conditions, or other urologic issues, please do not hesitate to contact me. The office telephone contact is [phone]. This note is constructed using voice recognition software. While every effort has been made to ensure accuracy condominium association manager errors may have been included. Yours sincerely, Dr Som Bobo MD, DANTE [facility] - Urology Providers of Expert, Compassionate Care for the Genitourinary System Coding Level of Care Code Est Pt Level 4 (04437) Diagnoses Chronic UTI (urinary tract infection) N39.0 BPH w urinary obs/LUTS N40.1; N13.8 CPT Codes Post Residual Void - PVR CPT Code: 04038-Rlmh Void Residual by ultrasound ([id number])
== END 2023-09-11 10:25 | disposition home or self-care (01) ==
PROVIDERS: PCP Nurse Practitioner Family; Visit Provider Urology
DX: N39.0 Urinary tract infection, site not specified (principal); N40.1 Benign prostatic hyperplasia with lower urinary tract symptoms; N13.8 Other obstructive and reflux uropathy; Z13.9 Encounter for screening, unspecified
CPT/HCPCS: 99214

== ENCOUNTER 2023-10-16 13:37 | Outpatient (REF) | payer MEDICARE, BC, SELFPAY ==
[2023-10-16 16:17] LABS: Appearance Urine Cloudy; Color Urine Yellow; Glucose Urine UA Negative (Negative); Leukocyte Esterase Urine Moderate (2+) (Negative); Nitrite Urine Positive (Negative); PH 5.5 (5.0-9.0); UMIC TRIGGER UA YES; Urine Blood Large (3+) (Negative); Urine Ketones Negative (Negative); Urine Protein 30 (1+) mg/dL (Neg-Trace)
[2023-10-16 16:54] LABS: Bacteria Urine 2+ (None Seen); Hyaline Casts Urine 0-2 /LPF (0-2); Squamous Epithelial Cell Urine 0-2 /HPF (0-2); WBC Urine >50 /HPF (0-5)
== END 2023-10-16 13:38 | disposition home or self-care (01) ==
LOC: HO.HMGCLDS 13:37
PROVIDERS: PCP Nurse Practitioner Family; Visit Provider Urology
DX: N39.0 Urinary tract infection, site not specified (principal)
CPT/HCPCS: 81001; 87086; 87088; 87186

== ENCOUNTER 2023-11-29 14:21 | Outpatient (REF) | payer MEDICARE, BC, SELFPAY ==
[2023-11-29 15:59] LABS: Appearance Urine Cloudy; Color Urine Yellow; Glucose Urine UA Negative (Negative); Leukocyte Esterase Urine Large (3+) (Negative); Nitrite Urine Positive (Negative); PH 5.5 (5.0-9.0); UMIC TRIGGER UA YES; Urine Blood Trace (Negative); Urine Ketones Negative (Negative); Urine Protein 100 (2+) mg/dL (Neg-Trace)
[2023-11-29 16:02] LABS: Bacteria Urine Trace (None Seen); Hyaline Casts Urine 0-2 /LPF (0-2); RBC Urine 0-2 /HPF (0-2); Squamous Epithelial Cell Urine 0-2 /HPF (0-2); WBC Urine >50 /HPF (0-5)
== END 2023-11-29 14:22 | disposition home or self-care (01) ==
LOC: HO.HMGCLDS 14:21
PROVIDERS: PCP Nurse Practitioner Family; Visit Provider Urology
DX: N39.0 Urinary tract infection, site not specified (principal); R31.29 Other microscopic hematuria
CPT/HCPCS: 81001; 87086; 87088; 87186

== ENCOUNTER 2023-12-14 09:33 | Outpatient (AMB) | payer MEDICARE, BC, SELFPAY ==
--- NOTE | 2023-12-14 09:43 | A.OFFVIS_ITS ---
Intake Visit Reasons: 3m/UA/PVR Intake Note: Patient presents to the office today for a 3 month UA/PVR Urology Medication: Tamsulosin Antibiotic Allergies: Penicillin Blood Thinners: None PVR: 40 Allergies penicillin V Allergy (Severe, Verified 12/14/23 09:43) Swelling pet dander Allergy (Intermediate, Uncoded 12/14/23 09:43) Itchy Eyes trees Allergy (Intermediate, Uncoded 12/14/23 09:43) Itching HPI Comments Details: Presley is a very pleasant male. 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 Prostate Symptom Score Mild (0-8), Bother 2, PVR runs in range of 50-100 cc Symptoms include weak stream, nocturia (>2), and are stable - nocturia RN weakness of stream improving PSA Mar 2016 1.5, 05/12 2.8, 05/14 2.1, 01/14 2.8 Imaging - 06/13 US prostate 120 g with bladder wall thickening Testing at next visit will include Prostate Symptom Score, uroflow. Treatment plan continue alpha-sammy Nephrolithiasis Asymptomatic Imaging - 06/13 renal ultrasound - multiple 5 mm stones on right side, left side with 5 cm renal cysts multiple - 12/14 renal ultrasound 5 mm stone left side, multiple bilateral cysts - 01/14 renal ultrasound no evidence of stones, multiple bilateral stable cysts [facility] Medical History Trifascicular block HTN (hypertension) Renal cyst Hyperparathyroidism Lung nodule Barretts esophagus BPH (benign prostatic hyperplasia) Dyslipidemia Serum calcium elevated Chronic lower back pain Obesity Surgical History History of sigmoidoscopy History of endoscopy Cyst of face Fusion of lumbar spine Family History Father ALS (amyotrophic lateral sclerosis) Dementia Mother High cholesterol HTN (hypertension) COPD (chronic obstructive pulmonary disease) Diverticulitis Maternal Grandmother Myocardial infarction Breast cancer Maternal Aunt Multiple sclerosis Paternal Aunt Multiple sclerosis Social History Household Members: Spouse Housing: House Do you presently have visiting nurse or other home services: No Alcohol intake: current Alcohol intake frequency: does not drink Patient Tobacco Use Status: Never used Tobacco e-Cigarette/Vaping Use: Never Used Second Hand Smoke Exposure: No service: No Current occupational status: retired Cognitive needs: No Hearing needs: No Vision needs: No Review of Systems Const Denies chills and Denies fever(s) Card Reports no additional complaints and Denies syncope Resp Denies cough GI Denies abdominal pain and Denies heartburn Reports as per HPI and Denies change in libido Neuro Denies syncope Psych Denies change in libido Endo Denies change in libido Physical Exam Const General: cooperative, healthy appearing, comfortable and no acute distress Orientation/consciousness: patient oriented x3 HEENT Face and sinus: Yes normal facial exam Mouth: moist mucous membranes Neck Neck: Yes normal visual inspection, Yes full ROM and Yes trachea midline Chest Chest palpation & inspection: normal inspection of the chest Resp Effort & Inspection: normal respiratory effort, able to speak in complete sentences and no respiratory distress GI Inspection: Yes normal to inspection Back/Spine/Pelvis Cervical Spine: normal cervical lordosis Thoracic/Lumbar Spine: thoracic and lumbar spine normal to inspection Skin General skin exam: no rashes or lesions noted Neuro General: patient oriented x3, gait normal, tone normal and moves all extremities Extrem General: Yes normal to inspection and Yes capillary refill normal Office Procedures Post Void Residual Post Residual Void Post Void Residual (PVR): 102 [id number] Void Residual by ultrasound Results AMB Urinalysis, Automated 2 UA Leukoctes 15 Brandin/uL Last Edit by Alyssa Nguyen CMA on 12/14/23 09:58 UA Nitrite Negative Last Edit by Alyssa Nguyen CMA on 12/14/23 09:58 UA Urobilinogen 0.2 mg/dL Last Edit by Alyssa Nguyen CMA on 12/14/23 09:58 UA Protein 15 mg/dL Last Edit by Alyssa Nguyen CMA on 12/14/23 09:58 UA pH 6.5 Last Edit by Alyssa Nguyen CMA on 12/14/23 09:58 UA Blood 0 Srikanth/uL Last Edit by Alyssa Nguyen CMA on 12/14/23 09:58 UA Specific [place] 1.010 Last Edit by Alyssa Nguyen CMA on 12/14/23 09:58 UA Ketone Negative Last Edit by Alyssa Nguyen CMA on 12/14/23 09:58 UA Bilirubin 0 mg/dL Last Edit by Alyssa Nguyen CMA on 12/14/23 09:58 UA Glucose 0 mg/dL Last Edit by Alyssa Nguyen CMA on 12/14/23 09:58 Results Reviewed Results Reviewed: Laboratory Last Values Urine pH (Auto) 6.5 12/14/23 09:57 Specific [place] (Auto) 1.010 12/14/23 09:57 Urine Protein (Auto) 15 mg/dL 12/14/23 09:57 Glucose (UA)(Auto) 0 mg/dL 12/14/23 09:57 Urine Ketones (Auto) Negative 12/14/23 09:57 Urine Blood (Auto) 0 Srikanth/uL 12/14/23 09:57 Urine Nitrite (Auto) Negative 12/14/23 09:57 Urine Bilirubin (Auto) 0 mg/dL 12/14/23 09:57 Urine Urobilinogen (Auto) 0.2 mg/dL 12/14/23 09:57 Leukocyte Esterase (Auto) 15 Brandin/uL 12/14/23 09:57 Assessment & Plan Assessment & Plan (1) Microscopic hematuria: Code(s): R31.29 - Other microscopic hematuria Category: Medical (2) Nocturia more than twice per night: Code(s): R35.1 - Nocturia Category: Medical Plan Six-month follow-up office Orders: Orders AMB Post Void Residual by ultrasound Today R35.1 - Nocturia AMB Urinalysis Automated Today Z13.9 - Encounter for screening, unspecified Medications: New sulfamethoxazole-trimethoprim 400-80 mg (Bactrim) 1 tab PO BEDTIME 90 days 90 tabs 0RF N39.0 - Urinary tract infection, site not specified Patient Instructions: Imaging studies, laboratory and physical exam results were discussed and reviewed in detail. No major barriers to patient understanding were identified. An opportunity to ask questions regarding the treatment plan was provided. All questions were answered. The patient expressed understanding and agreement with the above treatment plan. The patient is aware they should contact our office by phone for worsening of their current condition or the appearance of new urologic symptoms. Compliance is encouraged with any medications and followup testing that is ordered. It is a privilege to participate in the urologic care of your patient. If you have any questions or concerns regarding treatment for the above conditions, or other urologic issues, please do not hesitate to contact me. The office telephone contact is [phone]. This note is constructed using voice recognition software. While every effort has been made to ensure accuracy it lead errors may have been included. Yours sincerely, Dr Som Bobo MD, [facility] - Urology Providers of Expert, Compassionate Care for the Genitourinary System Coding Level of Care Code Est Pt Level 4 (01735) Diagnoses Microscopic hematuria R31.29 Nocturia more than twice per night R35.1 CPT Codes Post Residual Void - PVR CPT Code: 02070-Tqdf Void Residual by ultrasound ([id number])
== END 2023-12-14 10:38 | disposition home or self-care (01) ==
PROVIDERS: PCP Nurse Practitioner Family; Visit Provider Urology
DX: R31.29 Other microscopic hematuria (principal); R35.1 Nocturia; N39.0 Urinary tract infection, site not specified; Z13.9 Encounter for screening, unspecified
CPT/HCPCS: 99214

== ENCOUNTER → 2023-12-14 09:33 | Outpatient (BNVA) | payer MEDICARE, BC, SELFPAY | PROVIDERS: PCP Nurse Practitioner Family; Visit Provider Urology | DX: R35.1 Nocturia (principal); R31.29 Other microscopic hematuria | CPT/HCPCS: 51798; 81003; 99212 ==

== ENCOUNTER 2023-12-20 13:48 | Outpatient (AMB) | payer MEDICARE, BC, SELFPAY ==
[2023-12-20 13:49] VITALS: BP 140/80; PULSE 90; TEMP 36.6; O2SAT 97
--- NOTE | 2023-12-20 13:49 | AM.OFFWIN_ITS ---
Intake Vital Signs 12/20/23 13:49 Height 5 ft 10 in BP 140/80 H Blood Pressure Location Rt brachial Position Sitting Pulse 90 Pulse Source Pulse Oximeter Temp 97.8 F Temp Source Oral Pulse Oximetry (%) 97 Intake Visit Reasons: EP LT elbow injury Intake Note: pt is here for left elbow injury Patient Tobacco Use Status: Never used Tobacco Allergies penicillin V Allergy (Severe, Verified 12/20/23 13:50) Swelling pet dander Allergy (Intermediate, Uncoded 12/14/23 09:43) Itchy Eyes trees Allergy (Intermediate, Uncoded 12/14/23 09:43) Itching Do you need a note to return to daycare/school/sports/work: No HPI HPI Comments History of Present Illness Details Patient is a 63 year old male complaining of left elbow pain, he states he is unable to straighten his left arm. He states he was spreading mulch a couple of days ago with no problem, he did not experience any pain. And then in the middle of the night 2 nights ago, he woke up with excruciating pain in his left elbow. He states he has just been putting in a sling, he is now unable to straighten it. He denies a history of gout, he denies any fevers, bug or tick bites or rashes. He denies any trauma to the area. [facility], [facility] Medical History Trifascicular block HTN (hypertension) Renal cyst Hyperparathyroidism Lung nodule Barretts esophagus BPH (benign prostatic hyperplasia) Dyslipidemia Serum calcium elevated Chronic lower back pain Obesity Surgical History History of sigmoidoscopy History of endoscopy Cyst of face Fusion of lumbar spine Family History Father ALS (amyotrophic lateral sclerosis) Dementia Mother High cholesterol HTN (hypertension) COPD (chronic obstructive pulmonary disease) Diverticulitis Maternal Grandmother Myocardial infarction Breast cancer Maternal Aunt Multiple sclerosis Paternal Aunt Multiple sclerosis Social History Household Members: Spouse Housing: House Do you presently have visiting nurse or other home services: No Alcohol intake: current Alcohol intake frequency: does not drink Patient Tobacco Use Status: Never used Tobacco e-Cigarette/Vaping Use: Never Used Second Hand Smoke Exposure: No service: No Current occupational status: retired Cognitive needs: No Hearing needs: No Vision needs: No Review of Systems Const All systems reviewed & are unremarkable except as noted in HPI and below Physical Exam Vital Signs: Last Vital Signs Temp 97.8 F 12/20/23 13:49 Pulse 90 12/20/23 13:49 BP 140/80 H 12/20/23 13:49 Pulse Ox 97 12/20/23 13:49 Const Other: in pain General: cooperative, healthy appearing, comfortable and well developed Orientation/consciousness: patient oriented x3 Limitations: no limitations Eyes General: appearance normal, both eyes and all related structures Resp Effort & Inspection: normal respiratory effort and able to speak in complete sen tences Skin Other: General skin exam: no rashes or lesions noted Neuro General: patient oriented x3 Extrem Left upper extremity: elbow/forearm Details: tenderness (2cm area of erythema on medial epicondyle w/tenderness) Location: of the olecranon and of the medial epicondyle, swelling, abnormal ROM Details: held in an abnormal fashion Details: in flexion and distal pulses intact; no unusual warmth, no abrasions, no lacerations and no ecchymosis Assessment & Plan Assessment & Plan (1) Pain and swelling of left elbow: Code(s): M25.522 - Pain in left elbow; M25.422 - Effusion, left elbow Plan: Septic arthritis versus bursitis versus gout versus other... Sent to ED, called [facility] ED with expect Plan see above Coding Level of Care Code Est Pt Level 3 (50708) Diagnoses Pain and swelling of left elbow M25.522; M25.422
== END 2023-12-20 14:26 | disposition home or self-care (01) ==
PROVIDERS: PCP Nurse Practitioner Family; Visit Provider Physician Assistant
DX: M25.522 Pain in left elbow (principal); M25.422 Effusion, left elbow
CPT/HCPCS: 99213

== ENCOUNTER 2023-12-20 14:33 | Emergency (ER) | payer MEDICARE, BC, SELFPAY ==
--- NOTE | ~2023-12-20 | XR_ITS ---
EXAMINATION: XR ELBOW, LEFT CLINICAL INFORMATION: Pain after shoveling COMPARISON: None available. TECHNIQUE: Four views of the left elbow. FINDINGS: There is a large enthesophyte at the insertion of the extensor tendon along with some small osteophytes arising from the medial and lateral humeral condyles. Osseous structures otherwise unremarkable. No fracture or joint effusion. Alignment is anatomic. Joint spaces are maintained. XR/XR elbow LT min 3V IMPRESSION: Degenerative changes as described above. No acute finding.
[2023-12-20 15:41] VITALS: BP 182/88; PULSE 75; RESP 16; TEMP 37; O2SAT 98; BMI 34.4
--- NOTE | 2023-12-20 15:49 | ED_ITS ---
HPI - Extremity Injury (Upper) General Chief Complaint: Extremity Injury, Upper Stated Complaint: elbow infection Related Data Previous Rx's ?Medication ?Instructions ?Recorded losartan 50 mg tablet 50 mg PO DAILY #90 tabs 05/02/23 pravastatin 40 mg tablet 40 mg PO DAILY 90 days #90 tabs 05/02/23 ascorbic acid (vitamin C) 1,000 mg 1 g PO DAILY 90 days #90 tabs 09/11/23 tablet methenamine hippurate 1 gram tablet 1 g PO DAILY 90 days #90 tabs 09/11/23 tamsulosin 0.4 mg capsule 0.4 mg PO BEDTIME 90 days #90 caps 11/02/23 Allergies Allergy/AdvReac Type Severity Reaction Status Date / Time penicillin V Allergy Severe Swelling Verified 12/20/23 15:44 pet dander Allergy Intermediate Itchy Eyes Uncoded 12/14/23 09:43 trees Allergy Intermediate Itching Uncoded 12/14/23 09:43 PMFSH Past Medical History Medical History Trifascicular block HTN (hypertension) Renal cyst Hyperparathyroidism Lung nodule Barretts esophagus BPH (benign prostatic hyperplasia) Dyslipidemia Serum calcium elevated Chronic lower back pain Obesity Surgical History History of sigmoidoscopy History of endoscopy Cyst of face Fusion of lumbar spine Family History Family History Father ALS (amyotrophic lateral sclerosis) Dementia Mother High cholesterol HTN (hypertension) COPD (chronic obstructive pulmonary disease) Diverticulitis Maternal Grandmother Myocardial infarction Breast cancer Maternal Aunt Multiple sclerosis Paternal Aunt Multiple sclerosis Social History Social History Household Members: Spouse Housing: House Do you presently have visiting nurse or other home services: No Alcohol intake: current Alcohol intake frequency: does not drink Patient Tobacco Use Status: Never used Tobacco e-Cigarette/Vaping Use: Never Used Second Hand Smoke Exposure: No Advance Directives: No Advance Directives Information Provided: No Do you have a plan to hurt others: No Plan service: No Current occupational status: retired Cognitive needs: No Hearing needs: No Vision needs: No Physical Exam 2 Vital Signs: Vital Signs: Last Vital Signs Temp 97.9 F 12/20/23 19:34 Pulse 68 12/20/23 19:34 Resp 18 12/20/23 19:34 BP 167/91 H 12/20/23 19:34 Pulse Ox 98 12/20/23 19:34 O2 Del Method Room Air 12/20/23 19:34 BMI result Body Mass Index 34.4 Course Course Course Narrative: This is an RME: Additional HPI, ROS, PE not included below will be deferred to primary provider. RME assessment and note performed by: Jaqueline Calero PA-C This is a 63-year-old male, with a BPH and bladder stones (follows with Dr. Bobo), HTN, as well as staph infection after a procedure performed by Dr. Bobo in May, who presents to the ER with complaints of left elbow pain. TTP overlying left elbow, decreased ROM, strong radial pulse. Plan: Labs, XR, further ER eval needed Reevaluation(s) Reevaluation #1: Patient left without completing treatment. Medical Decision Making Lab Data 12/20/23 16:42 12/20/23 16:42 Labs: Lab Results 12/20/23 12/20/23 Range/Units 16:42 17:41 WBC 8.4 (4.8-10.8) X10*3/uL RBC 5.22 (4.60-5.80) X10*6/uL Hgb 16.5 (14.0-18.0) g/dl Hct 50.7 (42.0-52.0) % MCV 97.1 (80.0-98.0) fL MCH 31.6 (27.0-33.0) pg MCHC 32.5 (31.0-36.0) g/dl RDW 14.2 (11.0-16.0) % Plt Count 212 (160-400) X10*3/uL MPV 8.6 L (9.4-12.4) fL Immature Gran % (Auto) 0.2 (0.0-0.4) % Neut % (Auto) 66.5 (45-73) % Lymph % (Auto) 20.3 (20-40) % [place] % (Auto) 11.1 H (2-11) % Eos % (Auto) 1.5 (0-4) % Baso % (Auto) 0.4 (0-2) % Lymph # (Auto) 1.7 (1.2-4.9) X10*3/uL [place] # (Auto) 0.9 (0.1-1.2) X10*3/uL Eos # (Auto) 0.1 (0.0-0.4) X10*3/uL Baso # (Auto) 0.0 (0.0-0.2) X10*3/uL Abs Immat Gran (auto) 0.02 (0.00-0.03) X10*3/uL Absolute Neuts (auto) 5.6 (2.0-8.3) x10*3/uL Absolute Nucleated RBC 0.000 (0.0-0.012) X10*3/uL Nucleated RBC % (auto) 0.0 (0.0-0.2) /100WBC ESR 10 (0-15) MM/HR PT 11.3 (11.1-13.3) SEC INR 0.9 (0.9-1.1) APTT 36.0 (26.0-36.8) SEC Sodium 144 (135-145) mmol/L Potassium 4.1 (3.3-5.1) mmol/L Chloride 105 (96-108) mmol/L Carbon Dioxide 26 (22-29) mmol/L Anion Gap 17 (12-20) BUN 22 H (9-16) mg/dL Creatinine 1.30 (0.5-1.4) mg/dL Estim Creat Clear Calc 69.9 Estimated GFR 55 Random Glucose 98 (60-115) mg/dL Lactic Acid 1.8 (0.5-2.0) mmol/L Uric Acid 6.4 (3.4-7.0) mg/dL Calcium 11.2 H (8.4-10.2) mg/dL Total Bilirubin 0.5 (0.0-1.0) mg/dL Direct Bilirubin 0.2 (0.0-0.5) mg/dL AST 13 (5-37) U/L ALT 16 (0-40) U/L Alkaline Phosphatase 93 (39-117) U/L C-Reactive Protein 0.30 (< or = 0.50) mg/dL Total Protein 8.4 H (6.5-8.0) g/dL Albumin 4.8 (3.5-5.0) g/dL Discharge Plan Discharge Clinical Impression: Elbow pain, left Patient Disposition: Left W/O Completing Treatment Prescriptions: No Action losartan 50 mg tablet 50 mg PO DAILY Qty: 90 1RF pravastatin 40 mg tablet 40 mg PO DAILY 90 Days Qty: 90 1RF tamsulosin 0.4 mg capsule 0.4 mg PO BEDTIME 90 Days Qty: 90 1RF ascorbic acid (vitamin C) 1,000 mg tablet 1 g PO DAILY 90 Days Qty: 90 1RF methenamine hippurate 1 gram tablet 1 g PO DAILY 90 Days Qty: 90 1RF Discharge Date/Time: 12/20/23 23:55
[2023-12-20 16:57] LABS: MANUAL DIFF FLAG NO
[2023-12-20 17:10] LABS: INTERNATIONAL NORM RATIO 0.9 (0.9-1.1); Prothrombin Time 11.3 SEC (11.1-13.3)
[2023-12-20 17:12] LABS: Basophils Percent Auto 0.4 % (0-2); Eosinophils Absolute Auto 0.1 X10*3/uL (0.0-0.4); Eosinophils Percent Auto 1.5 % (0-4); Hematocrit 50.7 % (42.0-52.0); Hemoglobin 16.5 g/dl (14.0-18.0); Imm Gran Abs Auto 0.02 X10*3/uL (0.00-0.03); Imm Gran Pct Auto 0.2 % (0.0-0.4); Lymphocytes Absolute Auto 1.7 X10*3/uL (1.2-4.9); Lymphocytes Percent Auto 20.3 % (20-40); Mean Corpuscular HGB Conc 32.5 g/dl (31.0-36.0); Mean Corpuscular Hemoglobin 31.6 pg (27.0-33.0); Mean Corpuscular Volume 97.1 fL (80.0-98.0); Mean Platelet Volume 8.6 fL (9.4-12.4); Monocytes Absolute Auto 0.9 X10*3/uL (0.1-1.2); Monocytes Percent Auto 11.1 % (2-11); Neutrophils Absolute Auto 5.6 x10*3/uL (2.0-8.3); Neutrophils Percent Auto 66.5 % (45-73); Platelet Count 212 X10*3/uL (160-400); Red Blood Count 5.22 X10*6/uL (4.60-5.80); Red Cell Distribution Width 14.2 % (11.0-16.0); White Blood Count 8.4 X10*3/uL (4.8-10.8)
[2023-12-20 17:22] LABS: Alanine Aminotransferase 16 U/L (0-40); Albumin Level 4.8 g/dL (3.5-5.0); Alkaline Phosphatase 93 U/L (39-117); Anion Gap 17 (12-20); Aspartate Amino Transferase 13 U/L (5-37); Bilirubin Direct 0.2 mg/dL (0.0-0.5); Bilirubin Total 0.5 mg/dL (0.0-1.0); Blood Urea Nitrogen 22 mg/dL (9-16); Calcium 11.2 mg/dL (8.4-10.2); Carbon Dioxide 26 mmol/L (22-29); Chloride 105 mmol/L (96-108); Creatinine Clr Calc Pharmacy 69.9; Estimated Glomerular Filt Rate 55; Glucose Random 98 mg/dL (60-115); Potassium 4.1 mmol/L (3.3-5.1); Sodium 144 mmol/L (135-145); Total Protein 8.4 g/dL (6.5-8.0); Uric Acid 6.4 mg/dL (3.4-7.0)
[2023-12-20 17:58] LABS: Lactic Acid 1.8 mmol/L (0.5-2.0)
[2023-12-20 18:36] LABS: Erythrocyte Sedimentation Rate 10 MM/HR (0-15)
[2023-12-20 19:34] VITALS: BP 167/91; PULSE 68; RESP 18; TEMP 36.6; O2SAT 98
== END 2023-12-20 23:55 | disposition left against medical advice (07) ==
PROVIDERS: Physician Assistant Medical; Emergency Provider Emergency Medicine; PCP Nurse Practitioner Family
DX: M25.522 Pain in left elbow (principal); I10 Essential (primary) hypertension; E83.52 Hypercalcemia; R79.82 Elevated C-reactive protein (CRP); E78.5 Hyperlipidemia, unspecified; I45.3 Trifascicular block; E21.3 Hyperparathyroidism, unspecified; R91.1 Solitary pulmonary nodule; Z79.02 Long term (current) use of antithrombotics/antiplatelets; Z79.899 Other long term (current) drug therapy; Z86.19 Personal history of other infectious and parasitic diseases
CPT/HCPCS: 36415; 73080; 80048; 80076; 83605; 84550; 85025; 85610; 85652; 85730; 86140; 87040; 99281; 99283

== ENCOUNTER 2024-01-08 10:42 | Outpatient (REF) | payer MEDICARE, BC, SELFPAY ==
--- NOTE | ~2024-01-08 | CT_ITS ---
EXAMINATION: CT ELBOW WITHOUT CONTRAST, LEFT CLINICAL INFORMATION: Left elbow pain. COMPARISON: Left elbow radiographs dated 12/20/2023. TECHNIQUE: Contiguous axial CT images of the left elbow were obtained without contrast. Multiplanar reformats were provided and reviewed. This CT examination was performed using dose optimization techniques as appropriate, variously including the following: *Automated exposure control *Adjustment of mA and/or kV according to patient size (this includes techniques or standardized protocols for targeted exams where dose is matched to indication/reason for exam; i.e. extremities or head) *Use of iterative reconstruction technique. DOSE: 96 mGy-cm. FINDINGS: Evaluation limited due to artifact related to patient positioning. No displaced fracture. Fine bone detail is limited, especially in the region of the radial head/neck. No dislocation. No joint space narrowing or marginal osteophytes. Mild enthesopathic spurring at the medial and lateral epicondyle. Posterior olecranon enthesophyte. No concerning lytic or blastic osseous lesion. No large joint effusion. No significant soft tissue mass or fluid collection. The visualized muscles and tendons are grossly intact, however, evaluation is limited on CT examination. CT/CT elbow LT wo IV con IMPRESSION: 1. No displaced fracture. Evaluation of bone detail is somewhat limited due to artifact related to patient positioning. If there is persistent elbow pain, followup radiographs in 7-10 days could help further evaluate for periosteal reaction/nondisplaced fracture. 2. Mild enthesopathic spurring at the medial and lateral epicondyles. Posterior olecranon enthesophyte.
== END 2024-01-08 10:43 | disposition home or self-care (01) ==
LOC: HO.CT 10:42
PROVIDERS: PCP Nurse Practitioner Family; Visit Provider Nurse Practitioner Family
DX: M25.522 Pain in left elbow (principal)
CPT/HCPCS: 73200

== ENCOUNTER 2024-01-10 16:16 | Outpatient (REF) | payer MEDICARE, BC, SELFPAY ==
[2024-01-10 17:13] LABS: Appearance Urine Clear; Color Urine Yellow; Glucose Urine UA Negative (Negative); Leukocyte Esterase Urine Large (3+) (Negative); Nitrite Urine Negative (Negative); Specific Gravity - Urine <= 1.005 (1.005-1.025); UMIC TRIGGER UA YES; Urine Blood Trace (Negative); Urine Ketones Negative (Negative); Urine Protein Negative (Neg-Trace)
[2024-01-10 17:18] LABS: Bacteria Urine None Seen (None Seen); Hyaline Casts Urine 0-2 /LPF (0-2); RBC Urine 0-2 /HPF (0-2); Squamous Epithelial Cell Urine 0-2 /HPF (0-2); WBC Urine >50 /HPF (0-5)
== END 2024-01-10 16:17 | disposition home or self-care (01) ==
LOC: HO.LAB 16:16
PROVIDERS: PCP Nurse Practitioner Family; Visit Provider Urology
DX: N39.0 Urinary tract infection, site not specified (principal)
CPT/HCPCS: 81001; 87086; 87088; 87186

== ENCOUNTER 2024-01-28 09:54 | Outpatient (REF) | payer MEDICARE, BC, SELFPAY ==
--- NOTE | ~2024-01-28 | US_ITS ---
EXAMINATION: US RETROPERITONEAL COMPLETE (RENAL) CLINICAL INFORMATION: Kidney stones. COMPARISON: KUB dated 06/15/2023; renal ultrasound dated 01/23/2023; CT abdomen and pelvis dated 07/14/2019. TECHNIQUE: Real-time imaging of the kidneys and bladder. FINDINGS: RIGHT KIDNEY: 13.5 x 5.3 x 6.5 cm (SAG x AP x TRV). The kidney is normal in size, contour, and echogenicity. Renal cortical thickness is normal. No calculi or focal parenchymal solid lesions. No hydronephrosis. At the lower pole, a 2.1 cm benign, simple cyst is seen, for which no imaging follow-up is recommended. LEFT KIDNEY: 13.0 x 5.1 x 5.3 cm (SAG x AP x TRV). The kidney is normal in size, contour, and echogenicity. Renal cortical thickness is normal. No calculi or focal parenchymal solid lesions. No hydronephrosis. At the interpolar aspect, a 9 mm benign, simple cyst is seen. At the lower pole, 2.4 cm and 1.7 cm benign, simple cysts are seen. These require no imaging follow-up. At the lower pole, a 1.8 x 1.3 x 1.6 cm mildly complex cyst is seen, with partial septations. This shows no mural nodularity or associated color Doppler flow. This is stable from the CT examination dated 07/14/2019 (7:59 and 3:62). US/US renal BI IMPRESSION: 1. No renal calculus or hydronephrosis is seen bilaterally. 2. There is a stable mildly complex, likely benign cyst at the lower pole of the left kidney. Electronically signed by: Hussein Chambers MD 02/18/2024 03:25 PM EDT [facility]station: [email or web address]
== END 2024-01-28 09:55 | disposition home or self-care (01) ==
LOC: HO.HMGCX 09:54
PROVIDERS: PCP Nurse Practitioner Family; Visit Provider Urology
DX: N20.0 Calculus of kidney (principal)
CPT/HCPCS: 76775

== ENCOUNTER 2024-02-12 09:40 | Outpatient (REF) | payer BC, SELFPAY | END 2024-02-12 09:41 | disposition home or self-care (01) | LOC: HO.LAB 09:40 | PROVIDERS: PCP Nurse Practitioner Family; Visit Provider Urology | DX: N39.0 Urinary tract infection, site not specified (principal); R35.1 Nocturia | CPT/HCPCS: 81003; 87086; 87088; 87186 ==

== ENCOUNTER 2024-02-12 09:40 | Outpatient (AMB) | payer MEDICARE, BC, SELFPAY ==
--- NOTE | 2024-02-12 09:45 | MHC.OFFVIS ---
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 He is seen for the following urologic conditions - lower urinary tract symptoms - nocturia - nephrolithiasis - renal cyst Possible infection Juan Will hold off treatment till confirmed Likely biofilm related did discuss possible cystoscopy to examine bladder opening Good response to current round of antibiotics - had been taking vitamin-C with methenamine. Vitamin-C caused crystallization 09/15 methenamine with vitamin-C for suppression - had 2 subsequent UTIs GreenLight laser 06/16 with bladder stone removal Persistent recurrent urinary tract infection Staphylococcus epididymis resistant to Bactrim, tetracycline. Sensitive to penicillin and Macrobid Lower Urinary Tract Symptoms: Initial CT scan showing bladder stones with enlarged prostate 06/16 underwent laser of stones with partial laser of prostate GreenLight Current visit is for further evaluation of lower urinary tract symptoms particularly weakness of stream and nocturia Current treatment includes tamsulosin Prior treatments include none. Prostate Symptom Score Mild (0-8), Bother 2, PVR runs in range of 50-100 cc Symptoms include weak stream, nocturia (>2), and are stable - nocturia RN weakness of stream improving PSA Mar 2016 1.5, 05/12 2.8, 05/14 2.1, 01/14 2.8 Imaging - 06/13 US prostate 120 g with bladder wall thickening Testing at next visit will include Prostate Symptom Score, uroflow. Treatment plan continue alpha-sammy Nephrolithiasis Asymptomatic Imaging - 06/13 renal ultrasound - multiple 5 mm stones on right side, left side with 5 cm renal cysts multiple - 12/14 renal ultrasound 5 mm stone left side, multiple bilateral cysts - 01/14 renal ultrasound no evidence of stones, multiple bilateral stable cysts PFSH Medical History Trifascicular block HTN (hypertension) Renal cyst Hyperparathyroidism Lung nodule Barretts esophagus BPH (benign prostatic hyperplasia) Dyslipidemia Serum calcium elevated Chronic lower back pain Obesity Surgical History History of sigmoidoscopy History of endoscopy Cyst of face Fusion of lumbar spine Family History Father ALS (amyotrophic lateral sclerosis) Dementia Mother High cholesterol HTN (hypertension) COPD (chronic obstructive pulmonary disease) Diverticulitis Maternal Grandmother Myocardial infarction Breast cancer Maternal Aunt Multiple sclerosis Paternal Aunt Multiple sclerosis Social History Household Members: Spouse Housing: House Do you presently have visiting nurse or other home services: No Alcohol intake: current Alcohol intake frequency: does not drink Patient Tobacco Use Status: Never used Tobacco e-Cigarette/Vaping Use: Never Used Second Hand Smoke Exposure: No service: No Current occupational status: retired Cognitive needs: No Hearing needs: No Vision needs: No Review of Systems Const Denies chills and Denies fever(s) Card Reports no additional complaints and Denies syncope Resp Denies cough GI Denies abdominal pain and Denies heartburn Reports as per HPI and Denies change in libido Neuro Denies syncope Psych Denies change in libido Endo Denies change in libido Physical Exam Const General: cooperative, healthy appearing, comfortable and no acute distress Orientation/consciousness: patient oriented x3 HEENT Face and sinus: Yes normal facial exam Mouth: moist mucous membranes Neck Neck: Yes normal visual inspection, Yes full ROM and Yes trachea midline Chest Chest palpation & inspection: normal inspection of the chest Resp Effort & Inspection: normal respiratory effort, able to speak in complete sentences and no respiratory distress GI Inspection: Yes normal to inspection Back/Spine/Pelvis Cervical Spine: normal cervical lordosis Thoracic/Lumbar Spine: thoracic and lumbar spine normal to inspection Skin General skin exam: no rashes or lesions noted Neuro General: patient oriented x3, gait normal, tone normal and moves all extremities Extrem General: Yes normal to inspection and Yes capillary refill normal Results AMB Urinalysis, Automated UA Leukoctes 500 Brandin/uL Last Edit by MALIKA Gongora on 02/12/24 10:18 UA Nitrite Positive Last Edit by Elizabeth Mg, RMA on 02/12/24 10:18 UA Urobilinogen 0.2 mg/dL Last Edit by Elizabeth Mg, RMA on 02/12/24 10:18 UA Protein 100 mg/dL Last Edit by Elizabeth Mg, RMA on 02/12/24 10:18 UA pH 6.0 Last Edit by Elizabeth Mg, RMA on 02/12/24 10:18 UA Blood 10 Srikanth/uL Last Edit by Elizabeth Mg, RMA on 02/12/24 10:18 UA Specific Unity 1.020 Last Edit by Elizabeth Mg, RMA on 02/12/24 10:18 UA Ketone Negative Last Edit by Elizabeth Mg, A on 02/12/24 10:18 UA Bilirubin 0 mg/dL Last Edit by Elizabeth Mg, RMA on 02/12/24 10:18 UA Glucose 0 mg/dL Last Edit by Elizabeth Mg, RMA on 02/12/24 10:18 Results Reviewed Results Reviewed: Laboratory Last Values Urine pH (Auto) 6.0 02/12/24 09:51 Specific Unity (Auto) 1.020 02/12/24 09:51 Urine Protein (Auto) 100 mg/dL 02/12/24 09:51 Glucose (UA)(Auto) 0 mg/dL 02/12/24 09:51 Urine Ketones (Auto) Negative 02/12/24 09:51 Urine Blood (Auto) 10 Srikanth/uL 02/12/24 09:51 Urine Nitrite (Auto) Positive 02/12/24 09:51 Urine Bilirubin (Auto) 0 mg/dL 02/12/24 09:51 Urine Urobilinogen (Auto) 0.2 mg/dL 02/12/24 09:51 Leukocyte Esterase (Auto) 500 Brandin/uL 02/12/24 09:51 Assessment & Plan Assessment & Plan (1) Chronic UTI (urinary tract infection): Code(s): N39.0 - Urinary tract infection, site not specified Category: Medical (2) Nocturia more than twice per night: Code(s): R35.1 - Nocturia Category: Medical Plan Microgen Orders: Orders AMB Urinalysis Automated Today Z13.9 - Encounter for screening, unspecified Urine Culture Today N39.0 - Urinary tract infection, site not specified Patient Instructions: Imaging studies, laboratory and physical exam results were discussed and reviewed in detail. No major barriers to patient understanding were identified. An opportunity to ask questions regarding the treatment plan was provided. All questions were answered. The patient expressed understanding and agreement with the above treatment plan. The patient is aware they should contact our office by phone for worsening of their current condition or the appearance of new urologic symptoms. Compliance is encouraged with any medications and followup testing that is ordered. It is a privilege to participate in the urologic care of your patient. If you have any questions or concerns regarding treatment for the above conditions, or other urologic issues, please do not hesitate to contact me. The office telephone contact is [phone]. This note is constructed using voice recognition software. While every effort has been made to ensure accuracy buildings and grounds superintendent errors may have been included. Yours sincerely, Dr Som Bobo MD, DANTE [facility] - Urology Providers of Expert, Compassionate Care for the Genitourinary System Coding Level of Care Code Est Pt Level 4 (51971) Diagnoses Chronic UTI (urinary tract infection) N39.0 Nocturia more than twice per night R35.1
== END 2024-02-12 10:53 | disposition home or self-care (01) ==
PROVIDERS: PCP Nurse Practitioner Family; Visit Provider Urology
DX: N39.0 Urinary tract infection, site not specified (principal); R35.1 Nocturia; Z13.9 Encounter for screening, unspecified
CPT/HCPCS: 99214

== ENCOUNTER 2024-02-28 13:42 | Outpatient (AMB) | payer MEDICARE, BC, SELFPAY ==
--- NOTE | 2024-02-28 13:43 | MHC.OFFVIS ---
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 He is seen for the following urologic conditions - lower urinary tract symptoms - nocturia - nephrolithiasis - renal cyst Telemedicine Evaluation 15 min Consultation Workable Saira Video attempted Microgen confirms Staphylococcus epididymis Likely biofilm related did discuss possible cystoscopy to examine bladder opening Good response to current round of antibiotics - had been taking vitamin-C with methenamine. Vitamin-C caused crystallization 09/15 methenamine with vitamin-C for suppression - had 2 subsequent UTIs GreenLight laser 06/16 with bladder stone removal Persistent recurrent urinary tract infection Staphylococcus epididymis resistant to Bactrim, tetracycline. Sensitive to penicillin and Macrobid Lower Urinary Tract Symptoms: Initial CT scan showing bladder stones with enlarged prostate 06/16 underwent laser of stones with partial laser of prostate GreenLight Current visit is for further evaluation of lower urinary tract symptoms particularly weakness of stream and nocturia Current treatment includes tamsulosin Prior treatments include none. Prostate Symptom Score Mild (0-8), Bother 2, PVR runs in range of 50-100 cc Symptoms include weak stream, nocturia (>2), and are stable - nocturia RN weakness of stream improving PSA Mar 2016 1.5, 05/12 2.8, 05/14 2.1, 01/14 2.8 Imaging - 06/13 US prostate 120 g with bladder wall thickening Testing at next visit will include Prostate Symptom Score, uroflow. Treatment plan continue alpha-sammy Nephrolithiasis Asymptomatic Imaging - 06/13 renal ultrasound - multiple 5 mm stones on right side, left side with 5 cm renal cysts multiple - 12/14 renal ultrasound 5 mm stone left side, multiple bilateral cysts - 01/14 renal ultrasound no evidence of stones, multiple bilateral stable cysts - 02/15 renal u/s - multiple bilateral cysts PFSH Medical History Trifascicular block HTN (hypertension) Renal cyst Hyperparathyroidism Lung nodule Barretts esophagus BPH (benign prostatic hyperplasia) Dyslipidemia Serum calcium elevated Chronic lower back pain Obesity Surgical History History of sigmoidoscopy History of endoscopy Cyst of face Fusion of lumbar spine Family History Father ALS (amyotrophic lateral sclerosis) Dementia Mother High cholesterol HTN (hypertension) COPD (chronic obstructive pulmonary disease) Diverticulitis Maternal Grandmother Myocardial infarction Breast cancer Maternal Aunt Multiple sclerosis Paternal Aunt Multiple sclerosis Social History Household Members: Spouse Housing: House Do you presently have visiting nurse or other home services: No Alcohol intake: current Alcohol intake frequency: does not drink Patient Tobacco Use Status: Never used Tobacco e-Cigarette/Vaping Use: Never Used Second Hand Smoke Exposure: No service: No Current occupational status: retired Cognitive needs: No Hearing needs: No Vision needs: No Review of Systems Const All systems reviewed & are unremarkable except as noted in HPI and below Reports no additional complaints Resp Reports no additional complaints GI Reports no additional complaints Reports as per HPI Musc Reports no additional complaints Physical Exam Telemedicine evaluation Appropriate responses Regular breathing rate and rhythm HEENT Head: Yes normal to inspection Ears: hearing grossly normal bilaterally Eyes General: appearance normal, both eyes and all related structures Neck Neck: Yes normal visual inspection Chest Chest palpation & inspection: normal inspection of the chest Resp Effort & Inspection: normal respiratory effort and able to speak in complete sentences Telehealth Telehealth Telehealth Platform: Telephone Location of provider rendering services: practice address Location of patient: address on file Patient Identification confirmed using: Name, : Yes Telehealth method: voice only Patient verbally consented to treatment: Yes Patient verbally consented to billing insurance company: Yes Patient informed of any privacy concerns related to visit: Yes Assessment & Plan Assessment & Plan (1) Bladder stones: Code(s): N21.0 - Calculus in bladder Category: Medical (2) BPH w urinary obs/LUTS: Code(s): N40.1 - Benign prostatic hyperplasia with lower urinary tract symptoms; N13.8 - Other obstructive and reflux uropathy Category: Medical Plan Three-month follow-up Medications: Changed From amoxicillin-pot clavulanate 500-125 mg (Augmentin) 1 tab PO TID 7 days 21 tabs 0RF To amoxicillin-pot clavulanate 500-125 mg (Augmentin) 1 tab PO ONCE 90 days 90 tabs 0RF Patient Instructions: Imaging studies, laboratory and physical exam results were discussed and reviewed in detail. No major barriers to patient understanding were identified. An opportunity to ask questions regarding the treatment plan was provided. All questions were answered. The patient expressed understanding and agreement with the above treatment plan. The patient is aware they should contact our office by phone for worsening of their current condition or the appearance of new urologic symptoms. Compliance is encouraged with any medications and followup testing that is ordered. It is a privilege to participate in the urologic care of your patient. If you have any questions or concerns regarding treatment for the above conditions, or other urologic issues, please do not hesitate to contact me. The office telephone contact is [phone]. This note is constructed using voice recognition software. While every effort has been made to ensure accuracy masonry contractor administrator errors may have been included. Yours sincerely, Dr Som Bobo MD, DANTE [facility] - Urology Providers of Expert, Compassionate Care for the Genitourinary System Coding Level of Care Code Tele Est Pt Level 3 (95413) Complex EM visit Add On G2211 Diagnoses Bladder stones N21.0 BPH w urinary obs/LUTS N40.1; N13.8
--- OUTSIDE RECORDS SUMMARY | 2024-02-28 13:44 | XMS_ITS | Continuity of Care Document ---
Author Organization [facility] Address [address] [place] [id number]- Care Team Providers Care Edge Setter Name Role Phone Siomara BASS, Hussein Stein Primary Care Physician En[place] [facility] [place] [id number] Date(s): 03/29/21 - 05/05/21 [facility] [address] [place] [id number]- Attending Physician: Evette Finn NP Admitting Physician: Evette Finn NP Referring Physician: Hussein Stringer NP Allergies, Adverse Reactions, Alerts Substance Reaction Severity Status penicillins Active Medications hydrochlorothiazide 25 mg oral tablet 1 tablet = 25 mg, By Mouth, Daily, # 30 tablet, 0 Refills, Maintenance, 03/16/15 8:17:57, Tablet Start Date: 03/16/15 Status: Ordered losartan 50 mg oral tablet 50 mg, 1, tablet, By Mouth, Daily, Refills 0, Maintenance, 04/18/21 13:27:00 EDT, Partial fill uponpatient request if the prescription is for a schedule II opioid drug. Start Date: 04/18/21 Status: Ordered pravastatin 10 mg oral tablet 1 tablet = 10 mg, By Mouth, Daily, # 30 tablet, 0 Refills, Maintenance, 03/16/15 8:18:15, Tablet Start Date: 03/16/15 Status: Ordered
--- OUTSIDE RECORDS SUMMARY | 2024-02-28 13:44 | XMS_ITS | Continuity of Care Document ---
Author Organization [facility] Address [address] [place] [id number]- Care Team Providers Care Investigator Operator Name Role Phone Siomara BASS, Hussein Stein Primary Care Physician [phone] Encounter [facility] Date(s): 06/24/19 - 06/24/[address] [address]- [facility] Attending Physician: Peter Woods MD Allergies, Adverse Reactions, Alerts Substance Reaction Severity Status penicillins Active Medications hydrochlorothiazide 25 mg oral tablet 1 tablet = 25 mg, By Mouth, Daily, # 30 tablet, 0 Refills, Maintenance, 03/16/15 8:17:57, Tablet Start Date: 03/16/15 Status: Ordered pravastatin 10 mg oral tablet 1 tablet = 10 mg, By Mouth, Daily, # 30 tablet, 0 Refills, Maintenance, 03/16/15 8:18:15, Tablet Start Date: 03/16/15 Status: Ordered
--- OUTSIDE RECORDS SUMMARY | 2024-02-28 13:44 | XMS_ITS | Patient Health Record ---
Author Organization [facility] Address [address] [place] [id number] Care Team Providers Care Sand Slinger Operator Name Role Phone DAYNE IZQUIERDO Primary Care Provider Chava Blas Jr Unavailable [phone] ALLERGIES Allergen (clinical drug ingredient) Drug/Non Drug Allergy documented on EMR Reaction Allergy Type Onset Date Status corn,potatoes, tomatoes, trees, grass , dogs , cat (uncoded) Unknown Allergy Active antibiotics (uncoded) Unknown Allergy Active enviromental (uncoded) Unknown Allergy Active REASON FOR REFERRAL No Information MEDICATIONS Medication SIG (Take, Route, Frequency, Duration) Notes Start Date End Date Status Apple Cider Vinegar Active Losartan Potassium A ctive Pravastatin Sodium 40 MG 1 tablet Orally Once a day Active MiraLax (colon prep) 17 GM/SCOOP mixed with Gatorade or Crystal Light Orally begin at 5:00 p.m. the day before the procedure for 1 day 03/09/2021 Active Turmeric Active IMMUNIZATIONS Vaccine Route Administration Date Status Comme nts Influenza Unknown 03/09/2021 Refused SOCIAL HISTORY Sex Assigned At : Social History Observation Description Sex Assigned At Unknown PROBLEMS Problem Type ICD Code Onset Dates Problem Status W/U Status Risk SNOMED Code Notes Problem Gastroesophageal reflux disease without esophagitis (K21.9) Active confirmed 106714383 Problem Rectal pain (K62.89) Active confirmed 7 3709701 Problem Right upper quadrant pain (R10.11) Active confirmed 756799474 Problem Periumbilical pain (R10.33) Active confirmed 672513010 Problem Barretts esophagus without dysplasia (K22.70) Active confirmed 876664598 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 036002833 Problem Colon cancer screening (Z12.11) Active confirmed 213811699 Problem Castro esophagus (K22.70) Active confirmed Castro esophagus (221020644) PLAN OF TREATMENT Future Test Test Name Order Date FLEXIBLE SIGMOIDOSCOPY, DIAGNOSTIC 07/29 UPPER GI ENDOSCOPY 07/29/2015 UPPER GI ENDOSCOPY 12/06/2017 COLONOSCOPY 12/06/2017 UPPER GI ENDOSCOPY 03/09/2021 COLONOSCOPY 03/09/2021 Insurance Providers Payer Name Payer Address Payer Phone Subscriber Number Group Number Insured Name Patient Relationship to Insured Coverage Start Date Coverage End Date [facility] [address] [place], [place] [id number] NATE RAHMAN Self - patient is the insured MEDICAL (GENERAL) HISTORY Medical History History ICD Code hypertension hypercholesterolemia lung nodules prediabetic Hemachromatosis immune system disorder Chest pain Surgical History Surgery Date(Month/Year) anterior fusion 1997 laminectomy/diskectomy 1986
--- OUTSIDE RECORDS SUMMARY | 2024-02-28 13:44 | XMS_ITS | Continuity of Care Document ---
Author Organization [facility] ter Address [address] [place] [address]- Care Team Providers Care International Sales Representative Name Role Phone Siomara BASS, Hussein Stein Primary Care Physician [phone] Encounter [facility] Date(s): 03/10/23 - 03/10/[address] [address]- Encounter Diagnosis History of hematuria(Final) - 03/10/23 Gross hematuria(Final) - 03/10/23 Bladder calculi(Final) - 03/10/23 Prostate hypertrophy(Final) - 03/10/23 Discharge Disposition: A-D/C Home Attending Physician: Jacinto Del Valle MD Admitting Physician: Jacinto Del Valle MD Referring Physician: Not on Staff, Referring MD Allergies, Adverse Reactions, Alerts Substance Reaction [...] opioid drug. Start Date: 04/18/21 Status: Ordered losartan 50 mg oral tablet 50 mg, Tablet, By Mouth, Once, STAT, 03/10/23 5:39:00 EDT, Stop date 03/10/23 5:39:00 EDT Start Date: 03/10/23 Stop Date: 03/10/23 Status: Completed pravastatin 10 mg oral tablet 1 tablet = 10 mg, By Mouth, Daily, # 30 tablet, 0 Refills, Maintenance, 03/16/15 8:18:15, Tablet Start Date: 03/16/15 Status: Ordered Results Radiology Reports * Exam Date Time Procedure Performing Provider Status 03/10/23 8:[address] Abdomen and Pelvi s W/O Contrast Marcos Fannie; Marie (Verified) Notes: (CT Abdomen and Pelvis W/O Contrast) Reason For Exam: Flank pain, kidney stone suspected;Other: RESULT: CT Abdomen and Pelvis W/O Contrast CT Abdomen and Pelvis W/O Contrast Hx of Present Illness: states I have a lot of blood in my urine endorses urinaryfrequency. no fevers chil;ls n v; Reason: Other:; Flank pain, kidney stone suspected; Clinical Question(s): Calculus; Right Side flank TECHNIQUE: Spiral CT through the abdomen and pelvis without IV contrast formatted in 3 planes. Thisstudy was performed without oral contrast. Weight- based protocol using automatic tube modulation was used to optimize exposure parameters. CTDIvol Body: 10.90 mGy, DLP Body: 544 mGy*cm. COMPARISON: None. FINDINGS: Manufacturing Executive View Findings, Lines and Tubes: None. Visualized Chest: Lung bases are clear. No pleural effusion. The heart is normal in size. No pericardial effusion. Diaphragm: Normal. Liver: Normal. Gallbladder: No CT evidence of gallbladder pathology. Bile ducts: No biliary ductal dilation. Spleen: Normal. Pancreas: Normal. Adrenal glands: Normal. Kidneys and ureters: 2 mm nonobstructing calculus in the posterior aspect of the interpolar region of the left kidney in axial image 28, coronal image 75, and sagittal image 101. No other renal or ureteral calculus is apparent. There are small bilateral renal cysts. Kidneys and ureters are otherwise unremarkable. Bladder: There are multiple bladder calculi with the largest measuring approximately 1.5 cm in diameter. No other bladder abnormality is apparent. Reproductive organs: Prostate hypertrophy with a small amount of degenerative calcification in the posterior portion of the prostate. Seminal vesicles are normal. Stomach, small bowel, and large bowel: Normal. Appendix: Normal. Peritoneum and retroperitoneum: No ascites or pneumoperitoneum. No omental or mesenteric lesions. Lymph nodes: No enlarged lymph nodes. Blood vessels: Normal. No aneurysm. Abdominal and pelvic wall: Small umbilical hernia containing only fat. Bones: Remote L5-S1 ALIF. IMPRESSION: Multiple calculi in the urinary bladder, the largest measuring 1.5 cm. 2 mm nonobstructing calculus in the interpolar region of the left kidney. Prostate hypertrophy. No other urinary tract abnormality. Small umbilical hernia containing only fat. WSN: [id number] Ordering Physician: Franklin Douglass Dictated By: Kevin Lee MD Dictated Date/Time: 03/10/23 8:19 am Reviewed By: Kevin Lee MD Signed By: Kevin Lee MD Signed Date/Time: 03/10/23 8:19 am Transcribed By: SABINA Transcribed Date/Time: 03/10/23 8:11 am Vital Signs Most recent to oldest [Reference Range]: 1 2 3 Height 178 cm (03/10/23 9:49 AM) 178 cm (03/10/23 8:26 AM) 178 cm (03/10/23 12:41 AM) Oxygen Saturation [94-100 %] 99 % (03/10/23 9:49 AM) 100 % (03/10/23 8:26 AM) 100 % (03/10/23 6:23 AM) Pulse Rate [55-90 bpm] 77 bpm (03/10/23 9:49 AM) 78 bpm (03/10/23 8:26 AM) 81 bpm (03/10/23 6:23 AM) Blood Pressure [90-138/55-84 mm Hg] 136/89mm Hg (03/10/23 9:49 AM) 163/84mm Hg *H* (03/10/23 8:26 AM) 149/73mm Hg *H* (03/10/23 6:23 AM) Respiratory Rate [16-30 br/min] 18 br/min (03/10/23 9:49 AM) 12 br/min *L* (03/10/23 8:26 AM) 16 br/min (03/10/23 6:23 AM) Temperature [96.8-100.4 DegF] 97.8 DegF (03/10/23 9:49 AM) 98.3 DegF (03/10/23 8:26 AM) 97.9 DegF (03/10/23 6:23 AM) Mode of Delivery (Oxygen) Room air (03/10/23 9:49 AM) Room air (03/10/23 8:26 AM) Room air (03/10/23 6:23 AM) Blood pressure sites Arm, left (03/10/23 9:49 AM) Arm, left (03/10/23 8:26 AM) Arm, left (03/10/23 6:23 AM) Temperature Route Oral (03/10/23 9:49 AM) Oral (03/10/23 8:26 AM) Oral (03/10/23 6:23 AM) Dry Weight 119 kg (03/10/23 9:49 AM) 119 kg (03/10/23 8:26 AM) 119 kg (03/10/23 12:41 AM) Dry Weight Obtained Via Patient/family s tated (03/10/23 12:35 AM) Note * Tad Wong DO: PERFORM Event Display: Patient Education Leaflets Authored Date: [id number] Blood in the Urine ?? [id number] Blood in the Urine Blood in the urine (hematuria) has many possible causes. If it occurs after an injury (such as a car accident or fall), it's most often a sign of bruising to the kidney or bladder. Common causes of blood in the urine include urinary tract infections, kidney stones, inflammation, tumors, or certain other diseases of the kidney or bladder. Menstruation can cause blood to appear in the urine sample,but it's not coming from the urinary tract. If only a tiny (trace) amount of blood is present, it will show up on the urine test, even though the urine may be yellow and not pink or red. This may occur with any of the above conditions, as wellas heavy exercise or high fever. In this case, your healthcare provider may want to repeat the urine test on another day. This will show if there's still blood in the urine. If there is, then other tests can be done to find out the cause. Home care Follow these home care guidelines: ??? If your urine doesn't look bloody (pink, brown, or red) thenyou don't need to restrict your activity in any way. ??? If you can see blood in your urine, rest and don't do any strenuous activity until your next exam. Don't use aspirin, blood thinners, or antiplatelet or anti- inflammatory medicines. These include ibuprofen and naproxen. These thin the blood and may increase bleeding. Call your healthcare provider to talk about using these medicines. ?? Follow-up care Follow up with your healthcare provider, or as advised. If you were injured and had blood in your urine, you should have a repeat urine test in 1 to 2 days. Contact your provider for this test. A radiologist will review any X-rays that were taken. You'll be told of any new findings that may affect your care. ?? When to get medical advice Call your healthcare provider right away if any of these occur: ??? Bright red blood or blood clotsin the urine (if you didn't have this before) ??? Weakness, dizziness, or fainting ??? New groin, belly, or back pain ??? Fever of 100.4??F (38??C) or higher, or as advised by your provider ??? Repeated vomiting ??? Bleeding from the nose or gums, or easy bruising ?? Last Reviewed Date: 2021 ?? 8904-7318 [employer]. All rights reserved. This information is not intended as a substitute for professional medical care. Always follow your healthcare professional's instructions. ?? Patient Care team information Care Team Personnel Name: Hussein Stringer NP Position: Reference Physician Member Role: PCP Address: Address: [address] [place] [address]- Name: Jeaneth Radford RN Position: [facility] ED RN W/OE and Tasks Member Role: Patient Care Provider Name: Jacinto Del Valle MD Position: [facility] ED Medicine MD Member Role: Admitting Physician Address: Address: [address] [place] [address]- Name: Tad Wong DO Position: [facility] Resident Member Role: ED Resident Address: Address: [address] [place] [address]- Name: Missy Floyd RN Position: [facility] ED RN W/OE and Tasks Member Role: Patient Care Provider Name: Lino Alejandro Position: [facility] ED TA [facility] Member Role: Patient Care Provider Care Team Related Persons Name: AMADEO SPARKS Address: home [address] [place] [address]
--- OUTSIDE RECORDS SUMMARY | 2024-02-28 13:44 | XMS_ITS | Continuity of Care Document ---
Author Organization [facility] Address [address] [place] [address]- Care Team Providers Care It Network Engineer Name Role Phone Hussein Stringer NP Primary Care Physician [phone] Encounter [facility] Date(s): 04/10/23 - 05/10/23 [facility] [address] [place] [address]- Attending Physician: Carla Valero Admitting Physician: Carla Valero Referring Physician: AdmtrCarla Allergies, Adverse Reactions, Alerts Substance Reaction Severity [...] 8:18:15, Tablet Start Date: 03/16/15 Status: Ordered Problem List Condition Confirmation Course Effective Dates Status Health St atus Informant Obese class II Confirmed Active Social History Social History Type Response Smoking Status Never (less than 100 in lifetime) entered on: 04/10/23 Sex Patient Care team information Care Team Personnel Name: Hussein Stringer NP Position: Reference Physician Member Role: PCP Address: Address: [address] [place] [address] Care Team Related Persons Name: AMADEO SPARKS Address: home [address] [place] [address]
--- OUTSIDE RECORDS SUMMARY | 2024-02-28 13:44 | XMS_ITS | Continuity of Care Document ---
Author Organization [facility] Address [address] [place] [address]- Care Team Providers Care Wholesale Agronomist Name Role Phone Hussein Stringer NP Primary Care Physician [id number] Date[facility]/23[facility] - 04/05/23 [facility] [address] [place] [address]- Attending Physician: Varinder Elaine MD Admitting Physician: Chele GRIFFIN, Varinder Arredondo Referring Physician: Hussein Stringer NP Allergies, Adverse [...] 8:18:15, Tablet Start Date: 03/16/15 Status: Ordered Patient Care team information Care Team Personnel Name: Hussein Stringer NP Position: Reference Physician Member Role: PCP Address: Address: [address] [place] [address]- Care Team Related Persons Name: AMADEO SPARKS Address: home [address] [place] [address]
--- OUTSIDE RECORDS SUMMARY | 2024-02-28 13:44 | XMS_ITS | Continuity of Care Document ---
Author Organization [facility] Address [address] [place] [address]- Care Team Providers Care Supervisor Type Disk Quality Control Name Role Phone Hussein Stringer NP Primary Care Physician Encounter [facility] Date(s): 04/10/22 - 05/10/22 [facility] [address] [place] [address]- Attending Physician: Carla Valero Admitting Physician: Carla Valero Referring Physician: Carla Valero Allergies, Adverse Reactions, Alerts Substance Reaction Severity [...] 8:18:15, Tablet Start Date: 03/16/15 Status: Ordered Note * Event Display: Cardiology Office Note, Non-BH Authored Date: * Event Display: Cardiology Office Note, Non-BH Authored Date: Patient Care team information Care Team Personnel Name: Hussein Stringer NP Position: Reference Physician Member Role: PCP Address: Address: [address] [place] [address]- Care Team Related Persons Name: AMADEO SPARKS Address: [address] [place] [address]
--- OUTSIDE RECORDS SUMMARY | 2024-02-28 13:44 | XMS_ITS | Continuity of Care Document ---
Author Organization [facility] Address [address] [place] [address]- Care Team Providers Care Manager Market Development Name Role Phone Hussein Stringer NP Primary Care Physician Encounter [facility] [place] Date(s): 01/10/22 - 05/10/22 [facility] [address] [place] [address]- Attending Physician: Galo Warner MD Admitting Physician: Alana GRIFFIN, Galo Reynoso Referring Physician: Hussein Stringer NP Allergies, Adverse [...] Reference Physician Member Role: PCP Address: Address: [address] [place] [address]- Care Team Related Persons Name: CLARE AMADEO Address: [address] [place] [address]
== END 2024-02-28 14:40 | disposition home or self-care (01) ==
LOC: HO.HUSH 13:42
PROVIDERS: PCP Nurse Practitioner Family; Visit Provider Urology
DX: N21.0 Calculus in bladder (principal); N40.1 Benign prostatic hyperplasia with lower urinary tract symptoms; N13.8 Other obstructive and reflux uropathy
CPT/HCPCS: 99442

== ENCOUNTER → 2024-02-28 13:42 | Outpatient (BNVA) | payer MEDICARE, BC, SELFPAY | PROVIDERS: PCP Nurse Practitioner Family; Visit Provider Urology ==

== ENCOUNTER 2024-03-11 09:42 | Outpatient (AMB) | payer MEDICARE, BC, SELFPAY ==
--- OUTSIDE RECORDS SUMMARY | 2024-03-11 09:44 | XMS_ITS | Patient Health Record ---
Author Organization [facility] Address [address] [place] [address] Care Team Providers Care Fish Net Stringer Name Role Phone DAYNE IZQUIERDO Primary Care Provider Chava Blas Jr Unavailable ALLERGIES Allergen (clinical drug ingredient) Drug/Non Drug [...] reflux disease without esophagitis (K21.9) Active confirmed 374280019 Problem Rectal pain (K62.89) Active confirmed 7 5105935 Problem Right upper quadrant pain (R10.11) Active confirmed 648812764 Problem Periumbilical pain (R10.33) Active confirmed 048280903 Problem Barretts esophagus without dysplasia (K22.70) Active confirmed 976972188 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 424173196 Problem Colon cancer screening (Z12.11) Active confirmed 741875832 Problem Castro esophagus (K22.70) Active confirmed Castro esophagus (478110066) PLAN OF TREATMENT Future Test Test Name Order Date FLEXIBLE SIGMOIDOSCOPY, DIAGNOSTIC 07/29 UPPER GI ENDOSCOPY 07/29/2015 UPPER GI ENDOSCOPY 12/06/2017 COLONOSCOPY 12/06/2017 UPPER GI ENDOSCOPY 03/09/2021 COLONOSCOPY 03/09/2021 Insurance Providers Payer Name Payer Address Payer Phone Subscriber Number Group Number Insured Name Patient Relationship to Insured Coverage Start Date Coverage End Date [facility] [address] [place], [place] [id number] NATE RAHMAN Self - patient is the insured MEDICAL (GENERAL) HISTORY Medical History History ICD Code hypertension hypercholesterolemia lung nodules prediabetic Hemachromatosis immune system disorder Chest pain Surgical History Surgery Date(Month/Year) anterior fusion 1997 laminectomy/diskectomy 1986
--- NOTE | 2024-03-11 09:52 | MHC.OFFWIV ---
Intake Vital Signs 03/11/24 09:54 Height 5 ft 10 in Weight 243 lb BMI 34.9 BP 120/78 Blood Pressure Location Rt brachial Position Sitting Pulse 68 Pulse Source Pulse Oximeter Temp 97.8 F Temp Source Oral Pulse Oximetry (%) 97 Oxygen Delivery Method Room Air Intake Visit Reasons: EP fatigue, feverish after insect bites. Intake Note: Patient here because he was hiking about 10 days ago and was bit by a insect and is now having feverish,fatigued, dehydrated, light and sound sensitivity. Patient Tobacco Use Status: Never used Tobacco Allergies penicillin V Allergy (Severe, Verified 03/11/24 09:56) Swelling pet dander Allergy (Intermediate, Uncoded 03/11/24 09:56) Itchy Eyes trees Allergy (Intermediate, Uncoded 03/11/24 09:56) Itching Do you need a note to return to daycare/school/sports/work: No HPI HPI Comments History of Present Illness Details Patient is a 63-year-old male complaining of 10 days of low-grade fevers, T-max of 99.6F, feeling very fatigued, dehydrated and headaches. He states he was hiking 10 days ago and he might have been bit by a few mosquitos but he is not sure if they were mosquitos or not. He is an avid hiker and usually takes great precautions against bug bites, he wears hats, long sleeve pants and long sleeve shirts because he has had several tick bites in the past. He states he has 100% certain this is not a tick bite because he did not see a tick attached nor has he seen any rash since the hike. His is here with him and they both state that the patient has not felt himself for the last 10 months. She states (and he agrees) that he has had headaches, felt fatigued and has had peripheral vision issues and is even driving differently since a procedure that he had with Urology 10 months ago. He states that Dr. Bobo, his urologist, told him he should be evaluated by Infectious Disease at this point, however he did not send a referral and they do not have an appointment with anyone. Dr. Bobo has him on Augmentin 500-125 daily, patient states he is taking that medication, he cuts it in half and takes half in the morning and then half in the evening. Patient states he does not like to take medications so he has not taken Tylenol to see if it helps his headache go away but his headache seemed to resolve on their own with time and then come back for no reason. He also states he did see an bulk clerk recently and his exam was completely normal. [facility] Medical History Trifascicular block HTN (hypertension) Renal cyst Hyperparathyroidism Lung nodule Barretts esophagus BPH (benign prostatic hyperplasia) Dyslipidemia Serum calcium elevated Chronic lower back pain Obesity Surgical History History of sigmoidoscopy History of endoscopy Cyst of face Fusion of lumbar spine Family History Father ALS (amyotrophic lateral sclerosis) Dementia Mother High cholesterol HTN (hypertension) COPD (chronic obstructive pulmonary disease) Diverticulitis Maternal Grandmother Myocardial infarction Breast cancer Maternal Aunt Multiple sclerosis Paternal Aunt Multiple sclerosis Social History Household Members: Spouse Housing: House Do you presently have visiting nurse or other home services: No Alcohol intake: current Alcohol intake frequency: does not drink Patient Tobacco Use Status: Never used Tobacco e-Cigarette/Vaping Use: Never Used Second Hand Smoke Exposure: No service: No Current occupational status: retired Cognitive needs: No Hearing needs: No Vision needs: No Review of Systems Const All systems reviewed & are unremarkable except as noted in HPI and below Physical Exam Vital Signs: Last Vital Signs Temp 97.8 F 03/11/24 09:54 Pulse 68 03/11/24 09:54 BP 120/78 03/11/24 09:54 Pulse Ox 97 03/11/24 09:54 Oxygen Delivery Method Room Air 03/11/24 09:54 BMI result Body Mass Index 34.9 Const General: cooperative, healthy appearing, comfortable, no acute distress and well developed Orientation/consciousness: patient oriented x3 Limitations: no limitations HEENT Head: Yes normal to inspection Ears: hearing grossly normal bilaterally General nose exam: Normal external nose present Face and sinus: Yes normal facial exam Eyes General: appearance normal, both eyes and all related structures Neck Neck: Yes normal visual inspection and Yes full ROM Resp Effort & Inspection: normal respiratory effort and able to speak in complete sentences Auscultation: clear to auscultation bilaterally Cardio Rate: regular rate Rhythm: regular rhythm Heart sounds: normal S1 and S2 Skin General skin exam: no rashes or lesions noted Neuro General: patient oriented x3 Extrem General: Yes normal to inspection Assessment & Plan Assessment & Plan (1) Fatigue: Code(s): R53.83 - Other fatigue Qualifiers: Fatigue type: unspecified Qualified Code(s): R53.83 - Other fatigue Plan: Patient's vital signs are stable and he is well-appearing although he does look fatigued, physical exam is unremarkable. We will send note to patient's PCP to do a workup for his fatigue including thyroid as it does not appear he has had a TSH lab since December of 2022. Also, if he feels it is necessary to send a referral to Infectious Disease for further workup after those labs have resulted. Plan See above Coding Level of Care Code Est Pt Level 4 (10380) Diagnoses Fatigue, unspecified type R53.83 Fatigue type: unspecified
[2024-03-11 09:54] VITALS: BP 120/78; PULSE 68; TEMP 36.6; O2SAT 97; BMI 34.9
== END 2024-03-11 10:52 | disposition home or self-care (01) ==
PROVIDERS: PCP Nurse Practitioner Family; Visit Provider Physician Assistant
DX: R53.83 Other fatigue (principal)

== ENCOUNTER → 2024-03-11 09:42 | Outpatient (BNVA) | payer MEDICARE, BC, SELFPAY | PROVIDERS: PCP Nurse Practitioner Family | DX: R53.83 Other fatigue (principal) | CPT/HCPCS: 99212 ==

== ENCOUNTER 2024-03-13 09:17 | Outpatient (REF) | payer MEDICARE, BC, SELFPAY ==
[2024-03-13 10:10] LABS: MANUAL DIFF FLAG NO
[2024-03-13 10:26] LABS: Basophils Percent Auto 0.7 % (0-2); Eosinophils Absolute Auto 0.2 X10*3/uL (0.0-0.4); Hematocrit 45.3 % (42.0-52.0); Hemoglobin 15.5 g/dl (14.0-18.0); Imm Gran Abs Auto 0.01 X10*3/uL (0.00-0.03); Imm Gran Pct Auto 0.2 % (0.0-0.4); Lymphocytes Absolute Auto 1.7 X10*3/uL (1.2-4.9); Lymphocytes Percent Auto 37.2 % (20-40); Mean Corpuscular HGB Conc 34.2 g/dl (31.0-36.0); Mean Corpuscular Hemoglobin 32.5 pg (27.0-33.0); Mean Platelet Volume 8.7 fL (9.4-12.4); Monocytes Absolute Auto 0.6 X10*3/uL (0.1-1.2); Monocytes Percent Auto 13.7 % (2-11); Neutrophils Percent Auto 44.2 % (45-73); Platelet Count 182 X10*3/uL (160-400); Red Blood Count 4.77 X10*6/uL (4.60-5.80); Red Cell Distribution Width 13.2 % (11.0-16.0); White Blood Count 4.5 X10*3/uL (4.8-10.8)
[2024-03-13 11:07] LABS: Erythrocyte Sedimentation Rate 8 MM/HR (0-15); Rheumatoid Factor < 13.0 IU/mL (<15.0)
[2024-03-13 11:14] LABS: Alanine Aminotransferase 21 U/L (0-40); Albumin Level 4.2 g/dL (3.5-5.0); Alkaline Phosphatase 75 U/L (39-117); Anion Gap 9 (12-20); Aspartate Amino Transferase 15 U/L (5-37); Bilirubin Total 0.6 mg/dL (0.0-1.0); Blood Urea Nitrogen 19 mg/dL (9-16); C Reactive Protein 0.18 mg/dL (< or = 0.50); Carbon Dioxide 27 mmol/L (22-29); Chloride 107 mmol/L (96-108); Estimated Glomerular Filt Rate > 60; Glucose Random 91 mg/dL (60-115); Iron 118 mcg/dL (45-160); Percent Iron Saturation 44 % (15-50); Potassium 4.1 mmol/L (3.3-5.1); Sodium 139 mmol/L (135-145); Total Iron Binding Capacity 266 mcg/dL (228-428); Total Protein 7.4 g/dL (6.5-8.0); Unsaturated Iron Binding 148 ug/dL
[2024-03-13 11:20] LABS: Ferritin 595 ng/mL (20-250); TSH reflex Free T4 2.73 uIU/mL (0.32-4.0)
[2024-03-13 11:34] LABS: Folate 10.2 ng/mL (> or = 4.0); Vitamin B12 506 pg/mL (200-900)
[2024-03-13 13:31] LABS: Appearance Urine Clear; Color Urine Yellow; Glucose Urine UA Negative (Negative); Leukocyte Esterase Urine Trace (Negative); Nitrite Urine Negative (Negative); Specific Gravity - Urine 1.015 (1.005-1.025); UMIC TRIGGER UACC YES; Urine Blood Negative (Negative); Urine Ketones Negative (Negative); Urine Protein Trace mg/dL (Neg-Trace)
[2024-03-13 13:35] LABS: Bacteria Urine None Seen (None Seen); Hyaline Casts Urine 0-2 /LPF (0-2); RBC Urine 0-2 /HPF (0-2); Squamous Epithelial Cell Urine 0-2 /HPF (0-2); WBC Urine 0-5 /HPF (0-5)
[2024-03-14 22:18] LABS: Lyme Abs Screen <0.90 index
[2024-03-15 11:28] LABS: A. Phagocytphilium DNA,RT-PCR NOT DETECTED (NOT DETECTED); Babesia Microti DNA, RT-PCR NOT DETECTED (NOT DETECTED); Borrelia Miyamotoi,DNA RT-PCR NOT DETECTED (NOT DETECTED); E.Chaffeensis DNA RT-PCR NOT DETECTED (NOT DETECTED); Lyme(Borrelia ssp)DNA RT-PCR NOT DETECTED (NOT DETECTED)
[2024-03-17 20:52] LABS: Cyclic Citrullinated Peptide <16 UNITS
[2024-03-19 07:29] LABS: Anti Nuclear Antibody Screen POSITIVE (NEGATIVE)
== END 2024-03-13 09:18 | disposition home or self-care (01) ==
LOC: HO.HMGCLDS 09:17
PROVIDERS: PCP Nurse Practitioner Family; Visit Provider Nurse Practitioner Family
DX: R53.83 Other fatigue (principal)
CPT/HCPCS: 36415; 80053; 81001; 82607; 82728; 82746; 83540; 84443; 85025; 85652; 86038; 86039; 86140; 86200; 86431; 86617; 86618; 87468; 87469; 87478; 87484; 87798

== ENCOUNTER 2024-06-09 12:27 | Outpatient (AMB) | payer MEDICARE, BC, SELFPAY ==
--- OUTSIDE RECORDS SUMMARY | 2024-06-09 12:28 | XMS_ITS | Continuity of Care Document ---
Author Organization [facility] [address] [place] [address] Phone [phone] Social History Type Date Description Comments Sex Unknown Medical Devices Description No Information Available Encounters Description No Information Available Assessments Description No Information Available Plan of Treatment No Information Available Functional Status Description No Information Available Mental Status Description No Information Available Referrals Description No Information Available
[2024-06-09 12:30] VITALS: BP 144/90; PULSE 78; O2SAT 97; BMI 34.7
--- NOTE | 2024-06-09 12:30 | A.OFFPC_ITS ---
Vital Signs 06/09/24 12:30 Height 5 ft 10 in Weight 242 lb BMI 34.7 BP 144/90 H Blood Pressure Location Rt brachial Position Sitting Pulse 78 Pulse Source Pulse Oximeter Pulse Oximetry (%) 97 Intake Visit Reasons: PE Intake Note: pt is here for PE Allergies penicillin V Allergy (Severe, Verified 06/09/24 12:30) Swelling pet dander Allergy (Intermediate, Uncoded 03/11/24 09:56) Itchy Eyes trees Allergy (Intermediate, Uncoded 03/11/24 09:56) Itching Medication List - Last Reconciled 06/09/24 by Hussein Stringer, SUPERVISORY INVESTIGATIVE SPECIALIST- amoxicillin-pot clavulanate 500-125 mg (Augmentin) 1 tab PO ONCE 90 days losartan 50 mg PO DAILY pravastatin 40 mg PO DAILY 90 days Tobacco use date assessed: 06/09/24 Fall risk assessment: No Falls in past year Last assessed Fall Risk: 06/09/24 Dental Screening Dental Screen Date: 06/09/24 Did you have a dental visit in the last 12 months?: Yes Did you have a dental problem in the last 6 months where you did not have access to dental care?: No Was dental information given to patient?: Patient has dentist HPI PE HPI Details History of Present Illness The patient is a 63-year-old male presenting with urinary tract infection and associated nocturia. The history of the present illness reveals that the patient underwent a GreenLight Laser Therapy for benign prostatic hyperplasia last May, following which he developed chronic urinary tract infections. He has been on antibiotic therapy, specifically Amoxicillin/Clavulanate (Augmentin), for a significant duration, experiencing partial symptomatic relief. Although daytime voiding occurs every 10 minutes to an hour, nocturnal urination is significantly impaired. The routine involves ambulating in short intervals to facilitate urination, resulting in sleep disturbances for a year. The patient notes the presence of trace leukocytes in past urine analyses and suspects incomplete UTI resolution due to nocturnal urinary retention. The patient expresses concern about the potential biofilm formation and its resistance to antibiotics, paralleling an earlier experience with Borrelia. He seeks a second opinion from a different neurologist regarding the possibility of another GreenLight procedure or alternative treatments, considering persistent symptoms and potential chronic prostatitis. He also reports dizziness and light sensitivity, starting suddenly during an episode of severe earache eight days prior. Although the ear pain resolved, the dizziness persisted, causing difficulty with ambulation. There is no recent fe bernadine, and the patient denies chest pain, shortness of breath, or visual changes. He attributes the ear discomfort to possible wax impaction. Hx of migraines. Does report more dark sediment like stools. FIT test will be performed Health Maintenance Social History Review of Systems - Urological: Reports increased frequenc y and nocturnal urinary difficulty. - ENT: Reports earache followed by ongoi ng dizziness. Denies new hearing loss or tinnitus. - Neurological: Reports dizziness, sensi tivity to light and sound. - Gastrointestinal: Reports changes in b owel movements, sometimes dark, s ediment-like stools. -denies any si or hi, Hx of anxiety note d, denies depression -denies any CP denies any SOB Physical Exam General: Cooperative, healthy appearing, comfortable, no acute distress and well developed, obese, does appear anxious Orientation: Patient oriented x3 Limitations: No limitations Head: Normal to inspection Ears: Hearing grossly normal bilaterally, but patient reported a recent earache and dizziness. Examination revealed a large amount of wax in the left ear, which may be causing symptoms. easily removed, TM intact Nose: Normal external nose present Face and sinus: Normal facial exam Eyes: Appearance normal, both eyes and all related structures, but patient reports sensitivity to light (photophobia). Neck: Normal visual inspection and Yes full ROM Respiratory: Normal respiratory effort and able to speak in complete sentences. Clear to auscultation bilaterally Cardiovascular: Regular rate and rhythm. Normal S1 and S2 GI: Normal to inspection. Soft to palpation and nontender, but patient reports passing dark brown to black sediment-like stools. Skin: No rashes or lesions noted Neuro: Patient oriented x3, but reports dizziness and sensitivity to sound (sonophobia). Extremities: Normal to inspection Results Plan Patient was informed and verbally consented to the use of an ambient scribe for clinic note documentation during this visit. Discussion Notes During the consultation, I discussed the likelihood of chronic prostatitis contributing to the patient's urinary tract symptoms. We reviewed the limited effectiveness of current antibiotic treatment and the potential necessity of addressing nocturnal urinary retention. I emphasized the importance of voiding in preventing persistent infection. We explored the possibility of biofilm formation and its impact on antibiotic efficacy. The patient expressed interest in obtaining a second opinion and agreed to continue current antibiotic therapy pending further evaluation. Additionally, I addressed ear wax removal and potential post-procedural dizziness and outlined the plan for pt to contact me in a few days (via portal) concerning his dizziness. Patient Instructions - Continue taking Augmentin as prescribe d unless otherwise directed regarding PSA testing. - Prepare for ear wax removal and report any persistent dizziness post- procedure. - Consider seeking a second opinion at [facility] urology as discussed (pt requested) - Monitor stool changes and report any s ignificant new symptoms immediately. - Follow up with Dr. Bobo for further e valuation and testing as scheduled. [facility] Medical History Trifascicular block HTN (hypertension) Renal cyst Hyperparathyroidism Lung nodule Barretts esophagus BPH (benign prostatic hyperplasia) Dyslipidemia Serum calcium elevated Chronic lower back pain Obesity Surgical History History of sigmoidoscopy History of endoscopy Cyst of face Fusion of lumbar spine Family History Father ALS (amyotrophic lateral sclerosis) Dementia Mother High cholesterol HTN (hypertension) COPD (chronic obstructive pulmonary disease) Diverticulitis Maternal Grandmother Myocardial infarction Breast cancer Maternal Aunt Multiple sclerosis Paternal Aunt Multiple sclerosis Social History Household Members: Spouse Housing: House Do you presently have visiting nurse or other home services: No Alcohol intake: current Alcohol intake frequency: does not drink Patient Tobacco Use Status: Never used Tobacco e-Cigarette/Vaping Use: Never Used Second Hand Smoke Exposure: No service: No Current occupational status: retired Cognitive needs: No Hearing needs: No Vision needs: No Questionnaire PHQ-9 Over the last 2 weeks, how often have you been bothered by any of the following problems? 1. Little interest or pleasure in doing things: not at all 2. Feeling down, depressed, or hopeless: not at all 3. Trouble falling or staying asleep, or sleeping too much: not at all 4. Feeling tired or having little energy: several days 5. Poor appetite or overeating: several days 6. Feeling bad about yourself - or that you are a failure or have let yourself or your family down: not at all 7. Trouble concentrating on things, such as reading the newspaper or watching television: not at all 8. Moving or speaking so slowly that other people could have noticed. Or the opposite - being so fidgety or restless that you have been moving around a lot more than usual: not at all 9. Thoughts that you would be better off or of hurting yourself in some way: not at all Total score: 2 Depression Screening Interpretation: Negative Depression Screening Done: Yes 64312 - PHQ-9 Billing: Yes Source: Developed by Drs. Edi Hernandez, Lyubov Pedraza, Morro Post and colleagues, with an educational samanta from [employer]. Thrive Questionnaire Date Thrive assessed: 06/09/24 I am a: Patient What is your living situation today?: I have a steady place to live Within the past 12 months, did the food you bought not last and you didn't have the money to get more?: Never true Within the past 12 months, did you worry whether your food would run out before you got money to buy more?: Never true Do you have trouble paying for medicines?: No Do you have trouble getting transportation to medical appointments?: No Do you have trouble paying your heating and electricity bill?: No Do you have trouble taking care of your child, family member or friend?: No Do you have trouble with day-to-day activities such as bathing, preparing meals, shopping, managing finances, etc.?: No Are you currently unemployed and looking for a job?: No Please select the resources that you would like help with: None Currently or been in a relationship where the following occur: No concerns reported THRIVE Score: 0 AUDIT C Alcohol Use Questionnaire (AUDIT-C) 1. How often do you have a drink containing alcohol?: Monthly or less 2. How many drinks containing alcohol do you have on a typical day when you are drinking?: 1 or 2 3. How often do you have six or more drinks on one occasion?: Never Total Score: 1 Score Reviewed/Action Taken: Yes SAHIL-7 AMB Questionnaire SAHIL-7 Date SAHIL - 7 assessed: 06/09/24 Feeling nervous, anxious, or on edge: 0 = Not at all Not being able to stop or control worryin = Not at all Worrying too much about different things: 0 = Not at all Trouble relaxin = Not at all Being so restless that it is hard to sit still: 0 = Not at all Becoming easily annoyed or irritable: 0 = Not at all Feeling afraid as if something awful might happen: 0 = Not at all Total SAHIL-7 score (0-4 normal; 5-9 mild; 10-14 moderate; 15-21 severe): 0 Source: Developed by Drs. Edi Hernandez, Lyubov Pedraza, Morro Post and colleagues, with an educational samanta from [employer]. SAHIL-7 Assessment Billing SAHIL-7 Assessment Tool: SAHIL-7 Assessment 68112 Physical exam (Primary Care) Vital Signs: Last Vital Signs Pulse 78 06/09/24 12:30 BP 144/90 H 06/09/24 12:30 Pulse Ox 97 06/09/24 12:30 BMI result Body Mass Index 34.7 Tobacco/Smoking Status: Tobacco use Status Tobacco use date assessed 06/09/24 06/09/24 12:31 Patient Tobacco Use Status Never used Tobacco 06/09/24 12:31 e-Cigarette/Vaping Use Never Used 06/09/24 12:31 PHQ-9: PHQ-9 Score PHQ-9: Total score 2 06/09/24 12:31 Depression Screening Interpretation: Negative Thrive Assessment: Date of Thrive Assessment Date Thrive assessed 06/09/24 06/09/24 12:31 Currently or been in a relationship where the following occur: No concerns reported Office Procedures Cerumen Removal From which ear canal was the cerumen removed: left Removal: irrigation Notes: patient tolerated procedure well, no complications and ear canal clear [id number] Irrigation/Lavage Coding Level of Care Code Est Pt Prev Care >65y(79102) Diagnoses Chronic UTI (urinary tract infection) N39.0 BPH w urinary obs/LUTS N40.1; N13.8 Dark stools R19.5 Encounter for routine adult physical exam with abnormal findings Z00.01 CPT Codes Office Procedure - CPT: 78328-Adu Irrigation/Lavage ([id number]) Additional Codes SAHIL-7 Assessment Billing - SAHIL-7 Assessment Tool: SAHIL-7 Assessment 10620 ([id number]) PHQ-9 - 60629 - PHQ-9 Billing: Yes ([id number]) Assessment & Plan Assessment & Plan (1) Chronic UTI (urinary tract infection): Code(s): N39.0 - Urinary tract infection, site not specified Category: Medical (2) BPH w urinary obs/LUTS: Code(s): N40.1 - Benign prostatic hyperplasia with lower urinary tract symptoms; N13.8 - Other obstructive and reflux uropathy Category: Medical (3) Dark stools: Code(s): R19.5 - Other fecal abnormalities Category: Medical (4) Encounter for routine adult physical exam with abnormal findings: Code(s): Z00.01 - Encounter for general adult medical examination with abnormal findings Category: Medical Plan . Orders: Orders Comprehensive [place]. Panel Fast Today Z00.01 - Encounter for general adult medical examination with abnormal findings TSH reflex Free T4 Today Z00.01 - Encounter for general adult medical examination with abnormal findings FITS Today R19.5 - Other fecal abnormalities Complete Blood Count Auto Diff Today Z00.01 - Encounter for general adult me dical examination with abnormal findings UA CC w/rflx Micro + Cult Today Z00.01 - Encounter for general adult medical examination with abnormal findings Lipid Panel Today Z00.01 - Encounter for general adult medical examination with abnormal findings Referrals Urology Referral N13.8 - Other obstructive and reflux uropathy, N39.0 - Urinary tract infection, site not specified, N40.1 - Benign prostatic hyperplasia with lower urinary tract symptoms
== END 2024-06-09 14:40 | disposition home or self-care (01) ==
LOC: HO.HMCC 12:27
PROVIDERS: PCP Nurse Practitioner Family; Visit Provider Nurse Practitioner Family
DX: Z00.00 Encounter for general adult medical examination without abnormal findings (principal); N39.0 Urinary tract infection, site not specified; N40.1 Benign prostatic hyperplasia with lower urinary tract symptoms; N13.8 Other obstructive and reflux uropathy; R19.5 Other fecal abnormalities; H61.22 Impacted cerumen, left ear

== ENCOUNTER → 2024-06-09 12:27 | Outpatient (BNVA) | payer MEDICARE, BC, SELFPAY | PROVIDERS: PCP Nurse Practitioner Family; Visit Provider Nurse Practitioner Family | DX: Z00.01 Encounter for general adult medical examination with abnormal findings (principal); R35.1 Nocturia; N39.0 Urinary tract infection, site not specified; N40.1 Benign prostatic hyperplasia with lower urinary tract symptoms; N13.8 Other obstructive and reflux uropathy; R19.5 Other fecal abnormalities; H61.22 Impacted cerumen, left ear; Z87.440 Personal history of urinary (tract) infections | CPT/HCPCS: 69209; 96127; 99397 ==

== ENCOUNTER 2024-06-12 09:38 | Outpatient (AMB) | payer MEDICARE, BC, SELFPAY ==
--- OUTSIDE RECORDS SUMMARY | 2024-06-12 09:40 | XMS_ITS | Continuity of Care Document ---
Author Organization [facility] [address] [place] [address] Phone [phone] Social History Type Date Description Comments Sex Unknown Medical Devices Description No Information Available Encounters Description No Information Available Assessments Description No Information Available Plan of Treatment No Information Available Functional Status Description No Information Available Mental Status Description No Information Available Referrals Description No Information Available
--- NOTE | 2024-06-12 09:41 | MHC.OFFVIS ---
Intake Visit Reasons: 6m follow up Intake Note: Patient is present for 6M F/U Urology MedicatioN: AMOXICILLIN Antibiotic Allergy:PENICILLIN Blood Thinner:NONE Perl Software Engineer Required: No Allergies penicillin V Allergy (Severe, Verified 06/12/24 09:43) Swelling pet dander Allergy (Intermediate, Uncoded 06/12/24 09:43) Itchy Eyes trees Allergy (Intermediate, Uncoded 06/12/24 09:43) Itching HPI Comments Details: Presley is a very pleasant male. He is seen for the following urologic conditions - lower urinary tract symptoms - nocturia - nephrolithiasis - renal cyst Three-month follow-up Prior Microgen confirms Staphylococcus epididymis - Likely biofilm related did discuss possible cystoscopy to examine bladder opening UA today positive blood but otherwise negative Has control during the day but waking at nighttime Appears to have some bladder instability Did discuss possible urodynamics Interested in a 2nd opinion Will refer to [facility] for bladder instability 09/15 methenamine with vitamin-C for suppression - had 2 subsequent UTIs GreenLight laser 06/16 with bladder stone removal Lower Urinary Tract Symptoms: Initial CT scan showing bladder stones with enlarged prostate 06/16 underwent laser of stones with partial laser of prostate GreenLight Current visit is for further evaluation of lower urinary tract symptoms particularly weakness of stream and nocturia Current treatment includes tamsulosin Prior treatments include none. Prostate Symptom Score Mild (0-8), Bother 2, PVR runs in range of 50-100 cc Symptoms include weak stream, nocturia (>2), and are stable - nocturia RN weakness of stream improving PSA Mar 2016 1.5, 05/12 2.8, 05/14 2.1, 01/14 2.8 Imaging - 06/13 US prostate 120 g with bladder wall thickening Testing at next visit will include Prostate Symptom Score, uroflow. Treatment plan continue alpha-sammy Nephrolithiasis Asymptomatic Imaging - 06/13 renal ultrasound - multiple 5 mm stones on right side, left side with 5 cm renal cysts multiple - 12/14 renal ultrasound 5 mm stone left side, multiple bilateral cysts - 01/14 renal ultrasound no evidence of stones, multiple bilateral stable cysts - 02/15 renal u/s - multiple bilateral cysts PFSH Medical History Trifascicular block HTN (hypertension) Renal cyst Hyperparathyroidism Lung nodule Barretts esophagus BPH (benign prostatic hyperplasia) Dyslipidemia Serum calcium elevated Chronic lower back pain Obesity Surgical History History of sigmoidoscopy History of endoscopy Cyst of face Fusion of lumbar spine Family History Father ALS (amyotrophic lateral sclerosis) Dementia Mother High cholesterol HTN (hypertension) COPD (chronic obstructive pulmonary disease) Diverticulitis Maternal Grandmother Myocardial infarction Breast cancer Maternal Aunt Multiple sclerosis Paternal Aunt Multiple sclerosis Social History Household Members: Spouse Housing: House Do you presently have visiting nurse or other home services: No Alcohol intake: current Alcohol intake frequency: does not drink Patient Tobacco Use Status: Never used Tobacco e-Cigarette/Vaping Use: Never Used Second Hand Smoke Exposure: No service: No Current occupational status: retired Cognitive needs: No Hearing needs: No Vision needs: No Review of Systems Const Denies chills and Denies fever(s) Card Reports no additional complaints and Denies syncope Resp Denies cough GI Denies abdominal pain and Denies heartburn Reports as per HPI and Denies change in libido Neuro Denies syncope Psych Denies change in libido Endo Denies change in libido Physical Exam Const General: cooperative, healthy appearing, comfortable and no acute distress Orientation/consciousness: patient oriented x3 HEENT Face and sinus: Yes normal facial exam Mouth: moist mucous membranes Neck Neck: Yes normal visual inspection, Yes full ROM and Yes trachea midline Chest Chest palpation & inspection: normal inspection of the chest Resp Effort & Inspection: normal respiratory effort, able to speak in complete sentences and no respiratory distress GI Inspection: Yes normal to inspection Back/Spine/Pelvis Cervical Spine: normal cervical lordosis Thoracic/Lumbar Spine: thoracic and lumbar spine normal to inspection Skin General skin exam: no rashes or lesions noted Neuro General: patient oriented x3, gait normal, tone normal and moves all extremities Extrem General: Yes normal to inspection and Yes capillary refill normal Results AMB Urinalysis, Automated UA Leukoctes 0 Brandin/uL Last Edit by CORINA Han on 06/12/24 10:04 UA Nitrite Negative Last Edit by CORINA Han on 06/12/24 10:04 UA Urobilinogen 0.2 mg/dL Last Edit by CORINA Han on 06/12/24 10:04 UA Protein 30 mg/dL Last Edit by CORINA Han on 06/12/24 10:04 UA pH 5.5 Last Edit by Houston Ferrari CCM on 06/12/24 10:04 UA Blood 200 Srikanth/uL Last Edit by CORINA Han on 06/12/24 10:04 UA Specific [place] 1.025 Last Edit by Houston Ferrari CCM on 06/12/24 10:04 UA Ketone Negative Last Edit by CORINA Han on 06/12/24 10:04 UA Bilirubin 0 mg/dL Last Edit by CORINA Han on 06/12/24 10:04 UA Glucose 0 mg/dL Last Edit by Houston Ferrari [facility] on 06/12/24 10:04 Results Reviewed Results Reviewed: Laboratory Last Values Urine pH (Auto) 5.5 06/12/24 10:04 Specific [place] (Auto) 1.025 06/12/24 10:04 Urine Protein (Auto) 30 mg/dL 06/12/24 10:04 Glucose (UA)(Auto) 0 mg/dL 06/12/24 10:04 Urine Ketones (Auto) Negative 06/12/24 10:04 Urine Blood (Auto) 200 Srikanth/uL 06/12/24 10:04 Urine Nitrite (Auto) Negative 06/12/24 10:04 Urine Bilirubin (Auto) 0 mg/dL 06/12/24 10:04 Urine Urobilinogen (Auto) 0.2 mg/dL 06/12/24 10:04 Leukocyte Esterase (Auto) 0 Brandin/uL 06/12/24 10:04 Assessment & Plan Assessment & Plan (1) Prostatitis: Code(s): N41.9 - Inflammatory disease of prostate, unspecified Category: Medical Plan Referral [facility] bladder instability assessment Orders: Orders XR KUB Today N20.0 - Calculus of kidney, N21.0 - Calculus in bladder AMB Urinalysis Automated Today Z13.9 - Encounter for screening, unspecified MR Prostate wo/w con Today N41.9 - Inflammatory disease of prostate, unspecified, R97.20 - Elevated prostate specific antigen [PSA] Referrals Urology Referral R35.1 - Nocturia Patient Instructions: Imaging studies, laboratory and physical exam results were discussed and reviewed in detail. No major barriers to patient understanding were identified. An opportunity to ask questions regarding the treatment plan was provided. All questions were answered. The patient expressed understanding and agreement with the above treatment plan. The patient is aware they should contact our office by phone for worsening of their current condition or the appearance of new urologic symptoms. Compliance is encouraged with any medications and followup testing that is ordered. It is a privilege to participate in the urologic care of your patient. If you have any questions or concerns regarding treatment for the above conditions, or other urologic issues, please do not hesitate to contact me. The office telephone contact is [phone]. This note is constructed using voice recognition software. While every effort has been made to ensure accuracy cafe or restaurant manager errors may have been included. Yours sincerely, Dr Som Bobo MD, [facility] - Urology Providers of Expert, Compassionate Care for the Genitourinary System Coding Level of Care Code Est Pt Level 3 (10575) Diagnoses Prostatitis N41.9
== END 2024-06-12 10:42 | disposition home or self-care (01) ==
PROVIDERS: PCP Nurse Practitioner Family; Visit Provider Urology
DX: Z13.9 Encounter for screening, unspecified (principal); N41.9 Inflammatory disease of prostate, unspecified
CPT/HCPCS: 99213

== ENCOUNTER → 2024-06-12 09:38 | Outpatient (BNVA) | payer MEDICARE, BC, SELFPAY | PROVIDERS: PCP Nurse Practitioner Family; Visit Provider Urology | DX: N41.9 Inflammatory disease of prostate, unspecified (principal); N20.0 Calculus of kidney; N21.0 Calculus in bladder; R97.20 Elevated prostate specific antigen [PSA]; R35.1 Nocturia | CPT/HCPCS: 81003; 99212 ==

== ENCOUNTER 2024-06-20 09:18 | Outpatient (REF) | payer MEDICARE, BC, SELFPAY ==
--- OUTSIDE RECORDS SUMMARY | 2024-06-20 09:38 | XMS_ITS | Continuity of Care Document ---
Author Organization [facility] [address] [place] [address] Phone [phone] Social History Type Date Description Comments Sex Unknown Medical Devices Description No Information Available Encounters Description No Information Available Assessments Description No Information Available Plan of Treatment No Information Available Functional Status Description No Information Available Mental Status Description No Information Available Referrals Description No Information Available
[2024-06-20 13:53] LABS: Prostate Specific Antigen 3.01 ng/mL (<0.05-4.0)
== END 2024-06-20 09:19 | disposition home or self-care (01) ==
LOC: HO.HMGCLDS 09:18
PROVIDERS: Visit Provider Urology
DX: Z12.5 Encounter for screening for malignant neoplasm of prostate (principal)
CPT/HCPCS: 36415; 84153

== ENCOUNTER → 2024-07-11 11:08 | Outpatient (BNV) | payer MEDICARE, BC, SELFPAY | PROVIDERS: PCP Nurse Practitioner Family; Visit Provider Radiology Diagnostic Radiology | DX: R97.20 Elevated prostate specific antigen [PSA] (principal) | CPT/HCPCS: 72197 ==

== ENCOUNTER 2024-07-11 11:23 | Outpatient (REF) | payer MEDICARE, BC, SELFPAY ==
--- NOTE | ~2024-07-11 | MR_ITS ---
EXAMINATION: MR PROSTATE WITHOUT THEN WITH IV CONTRAST HISTORY: R97.20 - Elevated prostate specific antigen [PSA] TECHNIQUE: 1.5T body coil survey of the pelvis was performed. Phase array coil imaging of the prostate was performed in multiplanar high resolution axial, coronal, sagittal fast spin echo T2 and axial T1 weighted imaging sequences. Axial diffusion imaging at intermediate and high field performed with ADC mapping. Next, 10 mL Gadavist was given by intravenous infusion, and dynamic axial imaging performed. COMPARISON: There are no prior studies for comparison. CLINICAL DATA: Most recent PSA: 3.01 ng/mL on 06/20/2024 PSA Density: 0.015 ng/mL squared Prostate Biopsy: None reported FINDINGS: Prostate size: 8.6 x 6.5 x 6.7 cm. Calculated prostate volume is 194.8 mL. Hemorrhage: None. Transitional Zone: There is marked heterogeneous nodular hypertrophy of the transitional zone. Peripheral Zone: There are numerous linear foci of decreased T2 signal intensity throughout the peripheral zone which can be seen in the setting of prostatitis of scarring. There is a 4 mm area of interest in the posterolateral aspect of the right peripheral zone in the mid gland (series 7, image 20) with imaging characteristics as described below. Lesion #1: DWI PI-RADS v2.1 score: 3 T2 PI-RADS v2.1 score: 4 DCE PI-RADS v2.1 score: + Overall PI-RADS v2.1 score: 4 Capsular contact: Yes Extracapsular extension: None Seminal vesicle invasion: None Neurovascular bundle involvement: None Seminal Vesicles/Ejaculatory Ducts: Symmetric and normal in signal and caliber. Pelvic Lymph Nodes: No obturator or internal iliac lymph nodes meeting size criteria for adenopathy. Marrow Signal: Normal marrow signal and enhancement without focal lesion identified. MR/MR Prostate wo/w con IMPRESSION: Tiny nodule in the right posterolateral peripheral zone at the mid gland suspicious for clinically significant prostate carcinoma. PI-RADS 4: High (clinically significant cancer is likely to be present) PI-RADS Assessment Categories PI-RADS 1: Very low (clinically significant cancer is highly unlikely to be present) PI-RADS 2: Low (clinically significant cancer is unlikely to be present) PI-RADS 3: Intermediate (the presence of clinically significant cancer is equivocal) PI-RADS 4: High (clinically significant cancer is likely to be present) PI-RADS 5: Very high (clinically significant cancer is highly likely to be present) [employer]. MR Prostate Imaging Reporting and Data System version 2.1. [email or web address] Electronically signed by: Edi Mccarthy MD 07/11/2024 03:03 PM [facility] [place]
[2024-07-11] MEDS: gadobutroL 10 ML VIAL IVPUSH (12:42)
== END 2024-07-11 11:24 | disposition home or self-care (01) ==
LOC: HO.MRI 11:23
PROVIDERS: PCP Nurse Practitioner Family; Visit Provider Urology
DX: N41.9 Inflammatory disease of prostate, unspecified (principal); R97.20 Elevated prostate specific antigen [PSA]
CPT/HCPCS: 72197; A9585

== ENCOUNTER 2024-07-14 15:50 | Outpatient (REF) | payer MEDICARE, BC, SELFPAY ==
--- OUTSIDE RECORDS SUMMARY | 2024-07-14 19:04 | XMS_ITS | Continuity of Care Document ---
Author Organization [facility] [address] [place] [address] Phone [phone] Social History Type Date Description Comments Sex Unknown Medical Devices Description No Information Available Encounters Description No Information Available Assessments Description No Information Available Plan of Treatment No Information Available Functional Status Description No Information Available Mental Status Description No Information Available Referrals Description No Information Available
[2024-07-15 07:10] LABS: FIT1 NEGATIVE (NEGATIVE); FIT2 NEGATIVE (NEGATIVE)
[2024-07-15 07:11] LABS: FIT Int Ctl YES; FIT Lot M402476
== END 2024-07-14 15:51 | disposition home or self-care (01) ==
LOC: HO.LNP 15:50
PROVIDERS: Visit Provider Nurse Practitioner Family
DX: R19.5 Other fecal abnormalities (principal)
CPT/HCPCS: 82274

== ENCOUNTER 2024-07-16 11:44 | Outpatient (AMB) | payer MEDICARE, BC, SELFPAY ==
--- NOTE | 2024-07-16 11:49 | MHC.OFFVIS ---
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 He is seen for the following urologic conditions - lower urinary tract symptoms - nocturia - nephrolithiasis - renal cyst Recent prostate MRI for discussion - large prostate 190 g - tiny right posterolateral 4 mm PI-RADS 4 lesion Discussed clinical relevance of 4 mm possible lesion and positive predictive value of MRI Recommend continuing to follow PSA UA today positive nitrites. Question of possible UTI. Repeat bladder ultrasound Has control during the day but waking at nighttime Appears to have some bladder instability Did discuss possible urodynamics Interested in a 2nd opinion Will refer to [facility] for bladder instability Prior Microgen confirms Staphylococcus epididymis - Likely biofilm related did discuss possible cystoscopy to examine bladder opening 09/15 methenamine with vitamin-C for suppression - had 2 subsequent UTIs - did not tolerate methenamine so stopped. GreenLight laser 06/16 with bladder stone removal Lower Urinary Tract Symptoms: Initial CT scan showing bladder stones with enlarged prostate 06/16 underwent laser of stones with partial laser of prostate GreenLight - median lobe removal Current visit is for further evaluation of lower urinary tract symptoms particularly weakness of stream and nocturia Current treatment includes tamsulosin Prior treatments include none. Prostate Symptom Score Mild (0-8), Bother 2, PVR runs in range of 50-100 cc Symptoms include weak stream, nocturia (>2), and are stable - nocturia RN weakness of stream improving PSA Mar 2016 1.5, 05/12 2.8, 05/14 2.1, 01/14 2.8 Imaging - 06/13 US prostate 120 g with bladder wall thickening Testing at next visit will include Prostate Symptom Score, uroflow. Treatment plan continue alpha-sammy Nephrolithiasis Asymptomatic Imaging - 06/13 renal ultrasound - multiple 5 mm stones on right side, left side with 5 cm renal cysts multiple - 12/14 renal ultrasound 5 mm stone left side, multiple bilateral cysts - 01/14 renal ultrasound no evidence of stones, multiple bilateral stable cysts - 02/15 renal u/s - multiple bilateral cysts PFSH Medical History Trifascicular block HTN (hypertension) Renal cyst Hyperparathyroidism Lung nodule Barretts esophagus BPH (benign prostatic hyperplasia) Dyslipidemia Serum calcium elevated Chronic lower back pain Obesity Surgical History History of sigmoidoscopy History of endoscopy Cyst of face Fusion of lumbar spine Family History Father ALS (amyotrophic lateral sclerosis) Dementia Mother High cholesterol HTN (hypertension) COPD (chronic obstructive pulmonary disease) Diverticulitis Maternal Grandmother Myocardial infarction Breast cancer Maternal Aunt Multiple sclerosis Paternal Aunt Multiple sclerosis Social History Household Members: Spouse Housing: House Do you presently have visiting nurse or other home services: No Alcohol intake: current Alcohol intake frequency: does not drink Patient Tobacco Use Status: Never used Tobacco e-Cigarette/Vaping Use: Never Used Second Hand Smoke Exposure: No service: No Current occupational status: retired Cognitive needs: No Hearing needs: No Vision needs: No Review of Systems Const Denies chills and Denies fever(s) Card Reports no additional complaints and Denies syncope Resp Denies cough GI Denies abdominal pain and Denies heartburn Reports as per HPI and Denies change in libido Neuro Denies syncope Psych Denies change in libido Endo Denies change in libido Physical Exam Const General: cooperative, healthy appearing, comfortable and no acute distress Orientation/consciousness: patient oriented x3 HEENT Face and sinus: Yes normal facial exam Mouth: moist mucous membranes Neck Neck: Yes normal visual inspection, Yes full ROM and Yes trachea midline Chest Chest palpation & inspection: normal inspection of the chest Resp Effort & Inspection: normal respiratory effort, able to speak in complete sentences and no respiratory distress GI Inspection: Yes normal to inspection Back/Spine/Pelvis Cervical Spine: normal cervical lordosis Thoracic/Lumbar Spine: thoracic and lumbar spine normal to inspection Skin General skin exam: no rashes or lesions noted Neuro General: patient oriented x3, gait normal, tone normal and moves all extremities Extrem General: Yes normal to inspection and Yes capillary refill normal Results AMB Urinalysis, Automated UA Leukoctes 125 Brandin/uL Last Edit by CORINA Han on 07/16/24 12:11 UA Nitrite Positive Last Edit by CORINA Han on 07/16/24 12:11 UA Urobilinogen 0.2 mg/dL Last Edit by Houston Ferrari [facility] on 07/16/24 12:11 UA Protein 100 mg/dL Last Edit by Houston Ferrari [facility] on 07/16/24 12:11 UA pH 6.0 Last Edit by Houston Ferrari [facility] on 07/16/24 12:11 UA Blood 200 Srikanth/uL Last Edit by Houston Ferrari [facility] on 07/16/24 12:11 UA Specific Benton 1.025 Last Edit by Houston Ferrari [facility] on 07/16/24 12:11 UA Ketone Positive Last Edit by Houston Ferrari [facility] on 07/16/24 12:11 UA Bilirubin 0 mg/dL Last Edit by Houston Ferrari [facility] on 07/16/24 12:11 UA Glucose 0 mg/dL Last Edit by Houston Ferrari [facility] on 07/16/24 12:11 Results Reviewed Results Reviewed: Laboratory Last Values Urine pH (Auto) 6.0 07/16/24 12:10 Specific Benton (Auto) 1.025 07/16/24 12:10 Urine Protein (Auto) 100 mg/dL 07/16/24 12:10 Glucose (UA)(Auto) 0 mg/dL 07/16/24 12:10 Urine Ketones (Auto) Positive 07/16/24 12:10 Urine Blood (Auto) 200 Srikanth/uL 07/16/24 12:10 Urine Nitrite (Auto) Positive 07/16/24 12:10 Urine Bilirubin (Auto) 0 mg/dL 07/16/24 12:10 Urine Urobilinogen (Auto) 0.2 mg/dL 07/16/24 12:10 Leukocyte Esterase (Auto) 125 Brandin/uL 07/16/24 12:10 Assessment & Plan Assessment & Plan (1) Nocturia more than twice per night: Code(s): R35.1 - Nocturia Category: Medical (2) BPH w urinary obs/LUTS: Code(s): N40.1 - Benign prostatic hyperplasia with lower urinary tract symptoms; N13.8 - Other obstructive and reflux uropathy Category: Medical (3) Bladder stones: Code(s): N21.0 - Calculus in bladder Category: Medical (4) Chronic UTI (urinary tract infection): Code(s): N39.0 - Urinary tract infection, site not specified Category: Medical Plan Referral [facility] Treatment UTI with Augmentin We will restart vitamin-C Referral to [facility] for urodynamics Orders: Orders AMB Urinalysis Automated Today Z13.9 - Encounter for screening, unspecified US bladder Today N21.0 - Calculus in bladder, R39.12 - Poor urinary stream Patient Instructions: Imaging studies, laboratory and physical exam results were discussed and reviewed in detail. No major barriers to patient understanding were identified. An opportunity to ask questions regarding the treatment plan was provided. All questions were answered. The patient expressed understanding and agreement with the above treatment plan. The patient is aware they should contact our office by phone for worsening of their current condition or the appearance of new urologic symptoms. Compliance is encouraged with any medications and followup testing that is ordered. It is a privilege to participate in the urologic care of your patient. If you have any questions or concerns regarding treatment for the above conditions, or other urologic issues, please do not hesitate to contact me. The office telephone contact is [phone]. This note is constructed using voice recognition software. While every effort has been made to ensure accuracy cabinet builder errors may have been included. Yours sincerely, Dr Som Bobo MD, DAN[facility] - Urology Providers of Expert, Compassionate Care for the Genitourinary System Coding Level of Care Code Est Pt Level 4 (96735) Diagnoses Nocturia more than twice per night R35.1 BPH w urinary obs/LUTS N40.1; N13.8 Bladder stones N21.0 Chronic UTI (urinary tract infection) N39.0
== END 2024-07-16 12:44 | disposition home or self-care (01) ==
PROVIDERS: PCP Nurse Practitioner Family; Visit Provider Urology
DX: N40.1 Benign prostatic hyperplasia with lower urinary tract symptoms (principal); R35.1 Nocturia; N13.8 Other obstructive and reflux uropathy; N21.0 Calculus in bladder; N39.0 Urinary tract infection, site not specified; Z13.9 Encounter for screening, unspecified
CPT/HCPCS: 99214

== ENCOUNTER → 2024-07-16 11:44 | Outpatient (BNVA) | payer MEDICARE, BC, SELFPAY | PROVIDERS: PCP Nurse Practitioner Family; Visit Provider Urology | DX: N40.1 Benign prostatic hyperplasia with lower urinary tract symptoms (principal); R35.1 Nocturia; N13.8 Other obstructive and reflux uropathy; N21.0 Calculus in bladder; N39.0 Urinary tract infection, site not specified | CPT/HCPCS: 81003; 99212 ==

== ENCOUNTER 2024-09-04 10:26 | Outpatient (AMB) | payer MEDICARE, BC, SELFPAY ==
[2024-09-04 10:37] VITALS: BP 148/88; PULSE 68; BMI 35.1
--- NOTE | 2024-09-04 10:37 | MHC.OFFVIS ---
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 He is currently taking no medications. Did not undergo coronary calcium score. He said he was doing extremely well with lifestyle modification blood pressure came down and he took himself off the blood pressure medication without any consultation. Subsequently over the winter he has gained his weight back in his not been exercising as much and he is noticing elevated blood pressures. He denies any actual cardiac symptoms. Denies any symptoms lightheadedness, syncope, prolonged palpitation irregular heartbeat. Denies any exertional chest pain or shortness of breath. [facility] Medical History Trifascicular block HTN (hypertension) Renal cyst Hyperparathyroidism Lung nodule Barretts esophagus BPH (benign prostatic hyperplasia) Dyslipidemia Serum calcium elevated Chronic lower back pain Obesity Surgical History History of sigmoidoscopy History of endoscopy Cyst of face Fusion of lumbar spine Family History Father ALS (amyotrophic lateral sclerosis) Dementia Mother High cholesterol HTN (hypertension) COPD (chronic obstructive pulmonary disease) Diverticulitis Maternal Grandmother Myocardial infarction Breast cancer Maternal Aunt Multiple sclerosis Paternal Aunt Multiple sclerosis Social History Household Members: Spouse Housing: House Do you presently have visiting nurse or other home services: No Alcohol intake: current Alcohol intake frequency: does not drink Patient Tobacco Use Status: Never used Tobacco e-Cigarette/Vaping Use: Never Used Second Hand Smoke Exposure: No service: No Current occupational status: retired Cognitive needs: No Hearing needs: No Vision needs: No Review of Systems Const Denies chills, Denies fatigue, Denies fever(s), Denies frequent falls, Denies weakness, Denies weight gain and Denies weight loss ENT Denies dizziness Card Denies chest pain, Denies leg edema, Denies lightheadedness, Denies palpitations, Denies dyspnea, Denies dyspnea on exertion, Denies orthopnea and Denies other (loss of consciousness) Resp Denies cough, Denies dyspnea and Denies dyspnea on exertion GI Denies hematochezia and Denies change in stool character Musc Denies abnormal gait, Denies muscle weakness, Denies numbness, Denies radiating pain into limb and Denies tingling Neuro Denies Abnormal speech present, Denies abnormal gait, Denies dizziness, Denies frequent falls, Denies numbness, Denies tingling and Denies weakness Endo Denies fatigue and Denies palpitations Physical Exam Vital Signs: Last Vital Signs Pulse 68 09/04/24 10:37 BP 148/88 H 09/04/24 10:37 BMI result Body Mass Index 35.1 Const General: cooperative, no acute distress, alert and awake Nutritional Appearance: obese Orientation/consciousness: patient oriented x3 Limitations: no limitations HEENT Head: Yes normocephalic and Yes atraumatic Neck Neck: Yes trachea midline, Yes supple and Yes no JVD Resp Effort & Inspection: normal respiratory effort Auscultation: clear to auscultation bilaterally Cardio Jugular venous distension: no JVD Palpation: normal PMI Rate: regular rate Rhythm: regular rhythm Heart sounds: S1 normal heart sound present, S2 normal heart sound present, no click, no gallops, no murmurs and no rubs Bruits: no carotid bruits GI Auscultation: normal bowel sounds Skin General skin exam: no rashes or lesions noted Neuro General: patient oriented x3 and no focal motor deficits Speech: No Abnormal speech present Extrem General: Yes no clubbing, cyanosis or edema Office Procedures EKG Details: EKG shows normal sinus rhythm with left anterior fascicular block, unchanged from before [id number], Complete Assessment & Plan Assessment & Plan (1) Left anterior fascicular block: Code(s): I44.4 - Left anterior fascicular block Category: Medical Plan: Left anterior fascicular block in the past a trifascicular block. However has remained with left anterior fascicular block without any symptoms. No specific interventions required. He was no cardiovascular symptoms at this point time. Follow up with EKG annually. (2) HTN (hypertension): Comment: please keep an eye on your BP Code(s): I10 - Essential (primary) hypertension Category: Medical Plan: High blood pressure which is uncontrolled at this point time as patient took himself off his blood pressure medication. Dangers associated with self treatment without proper physician monitoring was discussed. Discussed that he can pursue lifestyle modification blood pressure improves he can be managed without medications although at this point time I would suggest that he should restart his antihypertensive therapy as before. He is planning to do so. Advised to continue to participate in weight loss program and regular exercise program. Again suggested to coronary calcium score that would help guide further treatment. He is more agreeable to do that. Will follow up in 1 year's time, sooner p.r.n.. Thank you for allowing me to partake in his care Orders: Orders CT Coronary Calcium Score 1 Week E78.5 - Hyperlipidemia, unspecified Coding Level of Care Code Est Pt Level 4 (36450) Complex EM visit Add On G2211 Diagnoses Left anterior fascicular block I44.4 HTN (hypertension) I10 CPT Codes EKG - CPT: 89233-[id number], Complete ([id number])
--- OUTSIDE RECORDS SUMMARY | 2024-09-04 13:02 | XMS_ITS | Patient Health Record ---
Author Organization [facility] Address [address] [place] [address] Care Team Providers Care Window Installation Subcontractor Name Role Phone DAYNE IZQUIERDO Primary Care Provider Chava Blas Jr Unavailable Allergies Allergen (clinical drug ingredient) Drug/Non Drug Allergy documented on EMR Reaction Allergy Type Onset Date Status corn,potatoes, tomatoes, trees, grass , dogs , cat (uncoded) Unknown Allergy Active antibiotics (uncoded) Unknown Allergy Active enviromental (uncoded) Unknown Allergy Active Reason For Referral No Information Medications Medication SIG (Take, Route, Frequency, Duration) Notes Start Date End Date Status Apple Cider Vinegar Active Losartan Potassium A ctive Pravastatin Sodium 40 MG 1 tablet Orally Once a day Active MiraLax (colon prep) 17 GM/SCOOP mixed with Gatorade or Crystal Light Orally begin at 5:00 p.m. 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) Active confirmed Problem 340137562 Right upper quad rant pain (R10.11) Active confirmed Problem 874297014 Gastroesophageal reflux disease without esophagitis (K21.9) Active confirmed Problem 175292755 Barretts esophag us without dysplasia (K22.70) Active confirmed Problem 06013436 Rectal pain (K62.89) Active confirmed Problem Castro esophagus (045098161) Castro esophagus (K22.70) Active confirmed Plan Of Treatment Future Test Test Name Order Date FLEXIBLE SIGMOIDOSCOPY, DIAGNOSTIC 07/29 UPPER GI ENDOSCOPY 07/29/2015 UPPER GI ENDOSCOPY 12/06/2017 COLONOSCOPY 12/06/2017 UPPER GI ENDOSCOPY 03/09/2021 COLONOSCOPY 03/09/2021 Insurance Providers Payer Name Payer Address Payer Phone Subscriber Number Group Number Insured Name Patient Relationship to Insured Coverage Start Date Coverage End Date [facility] [address] [place], [place] [id number] [phone] [id number] NATE RAHMAN Self - patient is the insured Medical (General) History Medical History History ICD Code hypertension hypercholesterolemia lung nodules prediabetic Hemachromatosis immune system disorder Chest pain Surgical History Surgery Date(Month/Year) anterior fusion 1997 laminectomy/diskectomy 1987
== END 2024-09-04 11:09 | disposition home or self-care (01) ==
LOC: HO.HCS 10:27
PROVIDERS: PCP Nurse Practitioner Family; Visit Provider Internal Medicine Cardiovascular Disease
DX: I44.4 Left anterior fascicular block (principal); I10 Essential (primary) hypertension
CPT/HCPCS: 93010; 99214; G2211

== ENCOUNTER → 2024-09-04 10:26 | Outpatient (BNVA) | payer MEDICARE, BC, SELFPAY | PROVIDERS: PCP Nurse Practitioner Family; Visit Provider Internal Medicine Cardiovascular Disease | DX: I44.4 Left anterior fascicular block (principal); I10 Essential (primary) hypertension; E78.5 Hyperlipidemia, unspecified | CPT/HCPCS: 93005; 99212 ==

== ENCOUNTER 2024-12-04 11:28 | Outpatient (REF) | payer MEDICARE, BC, SELFPAY ==
--- NOTE | ~2024-12-04 | US_ITS ---
EXAMINATION: US BLADDER HISTORY: R39.12 - Poor urinary stream COMPARISON: There are no prior studies available for comparison. FINDINGS: Sonographic examination of the urinary bladder was performed before and after voiding. Before voiding, the urinary bladder measured 9.6 x 4.5 x 7.5, for an estimated volume of 168 mL. After voiding, the urinary bladder measured 8.8 x 4.7 x 6.0, for an estimated volume of 130 mL. The bladder wall appears thickened and trabeculated. Multiple echogenic shadowing foci are seen in the urinary bladder which likely represent calculi or less likely a calcified bladder mass. A left ureteral jet is noted. No right jet is seen. The prostate measures 8.1 x 7.6 x 6.4 cm, for an estimated volume of 202 mL. US/US bladder IMPRESSION: 1. Multiple bladder calculi versus a calcified bladder mass. CT may be helpful for differentiation. 2. Enlarged prostate with a volume of 221 mL. 3. Post void bladder residual of 130 mL. Electronically signed by: Edi Mccarthy MD 12/04/2024 01:37 PM EDT
--- OUTSIDE RECORDS SUMMARY | 2024-12-04 13:37 | XMS_ITS | Continuity of Care Document ---
Author Organization [facility] [address] [place] [address] Phone [phone] Social History Type Date Description Comments Sex Male Sex Unknown Medical Devices Description No Information Available Encounters Description No Information Available Assessments Description No Information Available Plan of Treatment No Information Available Functional Status Description No Information Available Mental Status Description No Information Available Referrals Description No Information Available
== END 2024-12-04 11:29 | disposition home or self-care (01) ==
LOC: HO.HMGCX 11:28
PROVIDERS: PCP Nurse Practitioner Family; Visit Provider Urology
DX: R39.12 Poor urinary stream (principal); N21.0 Calculus in bladder
CPT/HCPCS: 76857

== ENCOUNTER → 2024-12-04 11:30 | Outpatient (BNV) | payer MEDICARE, BC, SELFPAY | PROVIDERS: PCP Nurse Practitioner Family; Visit Provider Radiology Diagnostic Radiology | DX: N40.0 Benign prostatic hyperplasia without lower urinary tract symptoms (principal); R39.14 Feeling of incomplete bladder emptying | CPT/HCPCS: 76857 ==

== ENCOUNTER 2024-12-11 09:58 | Outpatient (AMB) | payer MEDICARE, BC, SELFPAY ==
--- NOTE | 2024-12-11 10:04 | MHC.OFFVIS ---
Intake Visit Reasons: six-month office follow-up Intake Note: Patient is present for 6M F/U Urology Medication:NONE Antibiotic Allergy:PENICILLIN V Blood Thinner:NONE Email Deployment Specialist Required: No Allergies penicillin V Allergy (Severe, Verified 12/11/24 10:06) Swelling pet dander Allergy (Intermediate, Uncoded 12/11/24 10:06) Itchy Eyes trees Allergy (Intermediate, Uncoded 12/11/24 10:06) Itching HPI Comments Details: Presley is a very pleasant male. He is seen for the following urologic conditions - lower urinary tract symptoms - nocturia - nephrolithiasis - renal cyst Recent ultrasound Calcification within bladder UA clear today Plan office cystoscopy Thinks that taking detergent herbs - Polish knot weed has cleared his infection Discussion about MRI - large prostate 190 g - tiny right posterolateral 4 mm PI-RADS 4 lesion Discussed clinical relevance of 4 mm possible lesion and positive predictive value of MRI Recommend continuing to follow PSA UA today positive nitrites. Question of possible UTI. Repeat bladder ultrasound Did go to [facility] for 2nd opinion They discussed prostate enucleation Prior Microgen confirms Staphylococcus epididymis - Likely biofilm related did discuss possible cystoscopy to examine bladder opening 09/15 methenamine with vitamin-C for suppression - had 2 subsequent UTIs - did not tolerate methenamine so stopped. GreenLight laser 06/16 with bladder stone removal Lower Urinary Tract Symptoms: Initial CT scan showing bladder stones with enlarged prostate 06/16 underwent laser of stones with partial laser of prostate GreenLight - median lobe removal Current visit is for further evaluation of lower urinary tract symptoms particularly weakness of stream and nocturia Current treatment includes tamsulosin Prior treatments include none. Prostate Symptom Score Mild (0-8), Bother 2, PVR runs in range of 50-100 cc Symptoms include weak stream, nocturia (>2), and are stable - nocturia RN weakness of stream improving PSA Mar 2016 1.5, 05/12 2.8, 05/14 2.1, 01/14 2.8 Imaging - 06/13 US prostate 120 g with bladder wall thickening Testing at next visit will include Prostate Symptom Score, uroflow. Treatment plan continue alpha-sammy Nephrolithiasis Asymptomatic Imaging - 06/13 renal ultrasound - multiple 5 mm stones on right side, left side with 5 cm renal cysts multiple - 12/14 renal ultrasound 5 mm stone left side, multiple bilateral cysts - 01/14 renal ultrasound no evidence of stones, multiple bilateral stable cysts - 02/15 renal u/s - multiple bilateral cysts PFSH Medical History Trifascicular block HTN (hypertension) Renal cyst Hyperparathyroidism Lung nodule Barretts esophagus BPH (benign prostatic hyperplasia) Dyslipidemia Serum calcium elevated Chronic lower back pain Obesity Surgical History History of sigmoidoscopy History of endoscopy Cyst of face Fusion of lumbar spine Family History Father ALS (amyotrophic lateral sclerosis) Dementia Mother High cholesterol HTN (hypertension) COPD (chronic obstructive pulmonary disease) Diverticulitis Maternal Grandmother Myocardial infarction Breast cancer Maternal Aunt Multiple sclerosis Paternal Aunt Multiple sclerosis Social History Household Members: Spouse Housing: House Do you presently have visiting nurse or other home services: No Alcohol intake: current Alcohol intake frequency: does not drink Patient Tobacco Use Status: Never used Tobacco e-Cigarette/Vaping Use: Never Used Second Hand Smoke Exposure: No service: No Current occupational status: retired Cognitive needs: No Hearing needs: No Vision needs: No Review of Systems Const Denies chills and Denies fever(s) Card Reports no additional complaints and Denies syncope Resp Denies cough GI Denies abdominal pain and Denies heartburn Reports as per HPI and Denies change in libido Neuro Denies syncope Psych Denies change in libido Endo Denies change in libido Physical Exam Const General: cooperative, healthy appearing, comfortable and no acute distress Orientation/consciousness: patient oriented x3 HEENT Face and sinus: Yes normal facial exam Mouth: moist mucous membranes Neck Neck: Yes normal visual inspection, Yes full ROM and Yes trachea midline Chest Chest palpation & inspection: normal inspection of the chest Resp Effort & Inspection: normal respiratory effort, able to speak in complete sentences and no respiratory distress GI Inspection: Yes normal to inspection Back/Spine/Pelvis Cervical Spine: normal cervical lordosis Thoracic/Lumbar Spine: thoracic and lumbar spine normal to inspection Skin General skin exam: no rashes or lesions noted Neuro General: patient oriented x3, gait normal, tone normal and moves all extremities Extrem General: Yes normal to inspection and Yes capillary refill normal Results AMB Urinalysis, Automated UA Leukoctes 0 Brandin/uL Last Edit by Houston Ferrari [facility] on 12/11/24 10:11 UA Nitrite Negative Last Edit by Houston Ferrari [facility] on 12/11/24 10:11 UA Urobilinogen 0.2 mg/dL Last Edit by Houston Ferrari [facility] on 12/11/24 10:11 UA Protein 30 mg/dL Last Edit by Houston Ferrari [facility] on 12/11/24 10:11 UA pH 6.0 Last Edit by Houston Ferrari [facility] on 12/11/24 10:11 UA Blood 0 Srikanth/uL Last Edit by Houston Ferrari [facility] on 12/11/24 10:11 UA Specific Carlton 1.020 Last Edit by Houston Ferrari [facility] on 12/11/24 10:11 UA Ketone Negative Last Edit by Houston Ferrari [facility] on 12/11/24 10:11 UA Bilirubin 0 mg/dL Last Edit by Houston Ferrari [facility] on 12/11/24 10:11 UA Glucose 0 mg/dL Last Edit by Houston Ferrari [facility] on 12/11/24 10:11 Results Reviewed Results Reviewed: Laboratory Last Values Urine pH (Auto) 6.0 12/11/24 10:11 Specific Carlton (Auto) 1.020 12/11/24 10:11 Urine Protein (Auto) 30 mg/dL 12/11/24 10:11 Glucose (UA)(Auto) 0 mg/dL 12/11/24 10:11 Urine Ketones (Auto) Negative 12/11/24 10:11 Urine Blood (Auto) 0 Srikanth/uL 12/11/24 10:11 Urine Nitrite (Auto) Negative 12/11/24 10:11 Urine Bilirubin (Auto) 0 mg/dL 12/11/24 10:11 Urine Urobilinogen (Auto) 0.2 mg/dL 12/11/24 10:11 Leukocyte Esterase (Auto) 0 Brandin/uL 12/11/24 10:11 Assessment & Plan Assessment & Plan (1) Nocturia more than twice per night: Code(s): R35.1 - Nocturia Category: Medical (2) BPH w urinary obs/LUTS: Code(s): N40.1 - Benign prostatic hyperplasia with lower urinary tract symptoms; N13.8 - Other obstructive and reflux uropathy Category: Medical (3) Chronic UTI (urinary tract infection): Code(s): N39.0 - Urinary tract infection, site not specified Category: Medical Plan Plan office cysto Orders: Orders AMB Urinalysis Automated Today Z13.9 - Encounter for screening, unspecified Patient Instructions: This note is constructed using voice recognition software. While every effort has been made to ensure accuracy turbo generator oiler errors may have been included. Imaging studies, laboratory and physical exam results were discussed and reviewed in detail. No major barriers to patient understanding were identified. An opportunity to ask questions regarding the treatment plan was provided. All questions were answered. The patient expressed understanding and agreement with the above treatment plan. The patient is aware they should contact our office by phone for worsening of their current condition or the appearance of new urologic symptoms. Compliance is encouraged with any medications and followup testing that is ordered. It is a privilege to participate in the urologic care of your patient. If you have any questions or concerns regarding treatment for the above conditions, or other urologic issues, please do not hesitate to contact me. The office telephone contact is [phone]. Sincerely, Dr Som Bobo MD, [facility] - Urology Compassionate Specialist Care for the Genitourinary System Coding Level of Care Code Est Pt Level 3 (53985) Complex EM visit Add On G2211 Diagnoses Nocturia more than twice per night R35.1 BPH w urinary obs/LUTS N40.1; N13.8 Chronic UTI (urinary tract infection) N39.0
--- OUTSIDE RECORDS SUMMARY | 2024-12-11 11:09 | XMS_ITS | Continuity of Care Document ---
Author Organization [facility] [address] [place] [address] Phone [phone] Social History Type Date Description Comments Sex Male Sex Unknown Medical Devices Description No Information Available Encounters Description No Information Available Assessments Description No Information Available Plan of Treatment No Information Available Functional Status Description No Information Available Mental Status Description No Information Available Referrals Description No Information Available
== END 2024-12-11 10:52 | disposition home or self-care (01) ==
LOC: HO.HUSH 09:59
PROVIDERS: PCP Nurse Practitioner Family; Visit Provider Urology
DX: N40.1 Benign prostatic hyperplasia with lower urinary tract symptoms (principal); R35.1 Nocturia; N13.8 Other obstructive and reflux uropathy; N39.0 Urinary tract infection, site not specified; Z13.9 Encounter for screening, unspecified
CPT/HCPCS: 99213; G2211

== ENCOUNTER → 2024-12-11 09:58 | Outpatient (BNVA) | payer MEDICARE, BC, SELFPAY | PROVIDERS: PCP Nurse Practitioner Family; Visit Provider Urology | DX: N40.1 Benign prostatic hyperplasia with lower urinary tract symptoms (principal); N13.8 Other obstructive and reflux uropathy; N39.0 Urinary tract infection, site not specified; R35.1 Nocturia | CPT/HCPCS: 81003; 99212 ==

== ENCOUNTER 2025-02-10 10:58 | Outpatient (REF) | payer MEDICARE, BC, SELFPAY | END 2025-02-10 10:59 | disposition home or self-care (01) | LOC: HO.LAB 10:58 | PROVIDERS: PCP Nurse Practitioner Family; Visit Provider Urology | DX: N21.0 Calculus in bladder (principal); N40.1 Benign prostatic hyperplasia with lower urinary tract symptoms; N13.8 Other obstructive and reflux uropathy; N39.0 Urinary tract infection, site not specified; R35.0 Frequency of micturition; R30.0 Dysuria; R35.1 Nocturia; Z13.89 Encounter for screening for other disorder | CPT/HCPCS: 52000; 81003; 87086; 87088; 87186; 99212 ==

== ENCOUNTER 2025-02-10 10:58 | Outpatient (AMB) | payer MEDICARE, BC, SELFPAY ==
--- NOTE | 2025-02-10 11:02 | A.OFFVIS_ITS ---
Intake Visit Reasons: cysto Intake Note: Patient is present for CYSTOSCOPY C/O Frequent Urination , Dysuria , Cloudy urine Urology Medication:NONE Antibiotic Allergy:PENICILLIN V Blood Thinner:NONE Computer Forensics Analyst Required: No Accompanied by: Self / Same As Patient Allergies penicillin V Allergy (Severe, Verified 02/10/25 11:04) Swelling pet dander Allergy (Intermediate, Uncoded 12/11/24 10:06) Itchy Eyes trees Allergy (Intermediate, Uncoded 12/11/24 10:06) Itching HPI Comments Details: Presley is a very pleasant male. He is seen for the following urologic conditions - lower urinary tract symptoms - nocturia - nephrolithiasis - renal cyst Here for office cystoscopy Imaging - US Multiple bladder calculi versus a calcified bladder mass. CT may be helpful for differentiation. Cystoscopy with recurrent bladder stones, large anterior lobe of prostate, open bladder neck Thinks that taking detergent herbs - Latvian knot weed has cleared his in fection Discussion about MRI - large prostate 190 g - tiny right posterolateral 4 mm PI-RADS 4 lesion Discussed clinical relevance of 4 mm possible lesion and positive predictive value of MRI Recommend continuing to follow PSA UA today negative nitrites, positive leukocyte Did go to [facility] for 2nd opinion They discussed prostate enucleation Prior Microgen confirms Staphylococcus epididymis - Likely biofilm related did discuss possible cystoscopy to examine bladder opening 09/15 methenamine with vitamin-C for suppression - had 2 subsequent UTIs - did not tolerate methenamine so stopped. GreenLight laser 06/16 with bladder stone removal Lower Urinary Tract Symptoms: Initial CT scan showing bladder stones with enlarged prostate 06/16 underwent laser of stones with partial laser of prostate GreenLight - median lobe removal Current visit is for further evaluation of lower urinary tract symptoms particularly weakness of stream and nocturia Current treatment includes tamsulosin Prior treatments include none. Prostate Symptom Score Mild (0-8), Bother 2, PVR runs in range of 50-100 cc Symptoms include weak stream, nocturia (>2), and are stable - nocturia RN weakness of stream improving PSA Mar 2016 1.5, 05/12 2.8, 05/14 2.1, 01/14 2.8 Imaging - 06/13 US prostate 120 g with bladder wall thickening Testing at next visit will include Prostate Symptom Score, uroflow. Treatment plan continue alpha-sammy Nephrolithiasis Asymptomatic Imaging - 06/13 renal ultrasound - multiple 5 mm stones on right side, left side with 5 cm renal cysts multiple - 12/14 renal ultrasound 5 mm stone left side, multiple bilateral cysts - 01/14 renal ultrasound no evidence of stones, multiple bilateral stable cysts - 02/15 renal u/s - multiple bilateral cysts PFSH Medical History Trifascicular block HTN (hypertension) Renal cyst Hyperparathyroidism Lung nodule Barretts esophagus BPH (benign prostatic hyperplasia) Dyslipidemia Serum calcium elevated Chronic lower back pain Obesity Surgical History History of sigmoidoscopy History of endoscopy Cyst of face Fusion of lumbar spine Family History Father ALS (amyotrophic lateral sclerosis) Dementia Mother High cholesterol HTN (hypertension) COPD (chronic obstructive pulmonary disease) Diverticulitis Maternal Grandmother Myocardial infarction Breast cancer Maternal Aunt Multiple sclerosis Paternal Aunt Multiple sclerosis Social History Household Members: Spouse Housing: House Do you presently have visiting nurse or other home services: No Alcohol intake: current Alcohol intake frequency: does not drink Patient Tobacco Use Status: Never used Tobacco e-Cigarette/Vaping Use: Never Used Second Hand Smoke Exposure: No service: No Current occupational status: retired Cognitive needs: No Hearing needs: No Vision needs: No Review of Systems Const Denies chills and Denies fever(s) Card Reports no additional complaints and Denies syncope Resp Denies cough GI Denies abdominal pain and Denies heartburn Reports as per HPI and Denies change in libido Neuro Denies syncope Psych Denies change in libido Endo Denies change in libido Physical Exam Const General: cooperative, healthy appearing, comfortable and no acute distress Orientation/consciousness: patient oriented x3 HEENT Face and sinus: Yes normal facial exam Mouth: moist mucous membranes Neck Neck: Yes normal visual inspection, Yes full ROM and Yes trachea midline Chest Chest palpation & inspection: normal inspection of the chest Resp Effort & Inspection: normal respiratory effort, able to speak in complete sentences and no respiratory distress GI Inspection: Yes normal to inspection Back/Spine/Pelvis Cervical Spine: normal cervical lordosis Thoracic/Lumbar Spine: thoracic and lumbar spine normal to inspection Skin General skin exam: no rashes or lesions noted Neuro General: patient oriented x3, gait normal, tone normal and moves all extremities Extrem General: Yes normal to inspection and Yes capillary refill normal Office Procedures Cystoscopy Consent Discussed risk and benefit or proposed procedure with the patient. Information consent for procedure given to the patient. Discussed technical aspects, risks, benefits and alternatives in full. Addressed all of the patient's questions and concerns regarding the procedure. The patient demonstrated knowledge and understanding. They wish to proceed with this procedure. Preparation The patient was prepped in the usual manner. A hip hop dancer was present and in the room. Genitalia was prepped with betadine solution in a sterile manner. Lidocaine Jelly 2% was placed into the urethra and 16Fr flexible Olympus cystoscope was inserted into the meatus after adequate lubrication. Procedure Cystoscopy performed using a disposable Urovue digital 16 Sudanese cystoscope. Meatus circumcised Urethra anterior and posterior urethra normal Prostatic Urethra has open bladder neck but significant anterior prostatic tissue Bladder examination with retroflexion of cystoscope Bladder Orifices normal shape and position Bladder Capacity Normal Trabeculations grade 3 Cellule Formation yes Diverticulum Formation small Mucosal Erythema None - significant number bladder stone on anterior surface of anterior prostate tissue Bladder Tumor None 14087-Abpszethru DISPOSABLE SCOPE URO-G FLEXIBLE SCOPE Procedure code (CPT) selection complete Office Meds lidocaine HCl 2 % mucosal jelly in applicator Performing Provider: Som Bobo MD [place] [facility] [facility] Administered by: Darlene Juárez RN on 02/10/25 11:18 Dose Route Admin Location Dispensed Lot Number Expiration Date NDC Associate Pathologist 10 mL intra-urethral 10 mL nitrofurantoin monohydrate/macrocrystals 100 mg capsule Performing Provider: Som Bobo MD [place] [facility] [facility] Administered by: Darlene Juárez RN on 02/10/25 11:18 Dose Route Admin Location Dispensed Lot Number Expiration Date NDC Associate Pathologist 100 mg PO 1 cap Assessment & Plan Assessment & Plan (1) Bladder stones: Code(s): N21.0 - Calculus in bladder Category: Medical (2) BPH w urinary obs/LUTS: Code(s): N40.1 - Benign prostatic hyperplasia with lower urinary tract symptoms; N13.8 - Other obstructive and reflux uropathy Category: Medical Plan Restart finasteride Schedule prostate procedure Risks, benefits and alternatives to therapy were discussed. These include but are not limited to infection, bleeding, damage to local organs and tissues, need for further interventions. Anesthetic risks regarding cardiac arrhythmia, blood clots, and potential mortality were discussed. The patient understands the typical recovery time and the outpatient nature of the procedure. After consideration of these risks the patient gives full informed consent and they wish to move ahead with the procedure. - holmium laser bladder stones, GreenLight laser prostate Orders: Orders AMB Cystoscopy Today N39.0 - Urinary tract infection, site not specified Medications: New finasteride 5 mg PO DAILY 30 tabs 1RF 30 days N21.0 - Calculus in bladder Patient Instructions: This note is constructed using voice recognition software. While every effort has been made to ensure accuracy balancer errors may have been included. Imaging studies, laboratory and physical exam results were discussed and reviewed in detail. No major barriers to patient understanding were identified. An opportunity to ask questions regarding the treatment plan was provided. All questions were answered. The patient expressed understanding and agreement with the above treatment plan. The patient is aware they should contact our office by phone for worsening of their current condition or the appearance of new urologic symptoms. Compliance is encouraged with any medications and followup testing that is ordered. It is a privilege to participate in the urologic care of your patient. If you have any questions or concerns regarding treatment for the above conditions, or other urologic issues, please do not hesitate to contact me. The office tele phone contact is [phone]. Sincerely, Dr Som Bobo MD, [facility] - Urology Compassionate Specialist Care for the Genitourinary System Coding Level of Care Code Est Pt Level 4 (71694) Diagnoses Bladder stones N21.0 BPH w urinary obs/LUTS N40.1; N13.8 CPT Codes Cystoscopy - CPT: 41372-[id number] ([id number])
--- OUTSIDE RECORDS SUMMARY | 2025-02-10 12:32 | XMS_ITS | Patient Health Record ---
Author Organization 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) Active confirmed Problem [id number] Right upper quad rant pain (R10.11) Active confirmed Problem [id number] Gastroesophageal reflux disease without esophagitis (K21.9) Active confirmed Problem [id number] Barretts esophag us without dysplasia (K22.70) Active confirmed Problem 06436954 Rectal pain (K62.89) Active confirmed Problem Castro esophagu s (K22.70) Active confirmed Plan Of Treatment Future Test Test Name Order Date FLEXIBLE SIGMOIDOSCOPY, DIAGNOSTIC 07/29 UPPER GI ENDOSCOPY 07/29/2015 UPPER GI ENDOSCOPY 12/06/2017 COLONOSCOPY 12/06/2017 UPPER GI ENDOSCOPY 03/09/2021 COLONOSCOPY 03/09/2021 Insurance Providers Payer Name Payer Address Payer Phone Subscriber Number Group Number Insured Name Patient Relationship to Insured Coverage Start Date Coverage End Date [facility] [address] [place], [place] [id number] [phone] [id number] NATE RAHMAN Self - patient is the insured Medical (General) History Medical History History ICD Code hypertension hypercholesterolemia lung nodules prediabetic Hemachromatosis immune system disorder Chest pain Surgical History Surgery Date(Month/Year) anterior fusion 1997 laminectomy/diskectomy 1986
--- OUTSIDE RECORDS SUMMARY | 2025-02-10 12:32 | XMS_ITS | Continuity of Care Document ---
Author Organization [facility] [address] [place] [address] Phone [phone] Social History Type Date Description Comments Sex Male Sex Unknown Medical Devices Description No Information Available Encounters Description No Information Available Assessments Description No Information Available Plan of Treatment No Information Available Functional Status Description No Information Available Mental Status Description No Information Available Referrals Description No Information Available
== END 2025-02-10 11:45 | disposition home or self-care (01) ==
LOC: HO.HUSH 10:59
PROVIDERS: PCP Nurse Practitioner Family; Visit Provider Urology
DX: N21.0 Calculus in bladder (principal); N40.1 Benign prostatic hyperplasia with lower urinary tract symptoms; N13.8 Other obstructive and reflux uropathy; Z13.9 Encounter for screening, unspecified; N39.0 Urinary tract infection, site not specified
CPT/HCPCS: 52000; 99214

== ENCOUNTER → 2025-05-04 07:58 | Outpatient (BNV) | payer MEDICARE, BC, SELFPAY | PROVIDERS: PCP Nurse Practitioner Family; Visit Provider Urology | DX: N21.0 Calculus in bladder (principal); N40.1 Benign prostatic hyperplasia with lower urinary tract symptoms; N13.8 Other obstructive and reflux uropathy; R31.0 Gross hematuria | CPT/HCPCS: 99024 ==

== ENCOUNTER 2025-05-04 14:18 | Inpatient (IN) | payer MEDICARE, BC, SELFPAY ==
--- OUTSIDE RECORDS SUMMARY | 2025-04-03 15:11 | XMS_ITS | Continuity of Care Document ---
Author Organization [facility] [address] [place] [address] Phone [phone] Social History Type Date Description Comments Sex Male Sex Unknown Medical Devices Description No Information Available Encounters Description No Information Available Assessments Description No Information Available Plan of Treatment No Information Available Functional Status Description No Information Available Mental Status Description No Information Available Referrals Description No Information Available
--- NOTE | 2025-04-29 13:28 | P.CONAN_ITS ---
Documented by User: Shayla Naik NP 04/29/25 13:33 HPI - Anesthesia Eval Consult details Narrative: 64 yr old male for laser ablation prostate w/ Green Light, cystoscopy bladder stone removal Left anterior fascicular block: follows [facility] [place], last visit 08/2024, remains in left ant fasicular block, no symptoms. PMF Active Problems Active Problems: All Active Problems (Updated 06/12/24 @ 10:42 by Som Bobo MD) Prostatitis (Acute) Encounter for routine adult physical exam with abnormal findings (Acute) Dark stools (Acute) Pain and swelling of left elbow (Acute) Chronic UTI (urinary tract infection) (Acute) Bladder stones (Acute) Pre-op evaluation (Acute) Left anterior fascicular block (Acute) Skin infection (Acute) Right knee pain (Acute) Microscopic hematuria (Acute) Blood typing encounter (Acute) Cellulitis of abdominal wall (Acute) Tick bite of abdomen (Acute) Dyslipidemia (Acute) Recurrent headache (Acute) Uncontrolled hypertension (Acute) Physical exam (Acute) Nocturia more than twice per night (Acute) BPH w urinary obs/LUTS (Acute) Urinary hesitancy (Acute) Bilateral nephrolithiasis (Acute) Contact dermatitis (Acute) Chest discomfort (Acute) Anterior fascicular block, posterior fascicular block and incomplete right bundle branch block (RBBB) (Acute) Fatigue (Acute) Elevated ferritin (Chronic) Positive ALBERTO (antinuclear antibody) (Acute) Physical exam (Acute) Screening PSA (prostate specific antigen) (Acute) HTN (hypertension) (Acute) Past Medical History Medical History Trifascicular block HTN (hypertension) Renal cyst Hyperparathyroidism Lung nodule Barretts esophagus BPH (benign prostatic hyperplasia) Dyslipidemia Serum calcium elevated Chronic lower back pain Obesity Family History Family History Father ALS (amyotrophic lateral sclerosis) Dementia Mother High cholesterol HTN (hypertension) COPD (chronic obstructive pulmonary disease) Diverticulitis Maternal Grandmother Myocardial infarction Breast cancer Maternal Aunt Multiple sclerosis Paternal Aunt Multiple sclerosis Family history of problems with anesthesia: No Surgical History Surgical History History of sigmoidoscopy History of endoscopy Cyst of face Fusion of lumbar spine History of Problems with Anesthesia: No Social History Social History Household Members: Spouse Housing: House Do you presently have visiting nurse or other home services: No Alcohol intake: current Alcohol intake frequency: does not drink Patient Tobacco Use Status: Never used Tobacco e-Cigarette/Vaping Use: Never Used Second Hand Smoke Exposure: No Have you been hit, kicked, punched, or otherwise hurt by someone within the past year? If so, by whom?: No Are you DNR?: No Advance Directives: No Advance Directives Information Provided: Yes service: No Current occupational status: retired Cognitive needs: No Hearing needs: No Vision needs: No Meds Allergies Allergy/AdvReac Type Severity Reaction Status Date / Time penicillin V Allergy Severe Swelling Verified 02/10/25 11:04 pet dander Allergy Intermediate Itchy Eyes Uncoded 12/11/24 10:06 trees Allergy Intermediate Itching Uncoded 12/11/24 10:06 Exam Narrative Narrative: EKG 08/2024 normal sinus rhythm with left anterior fascicular block, rate 68, unchanged from before Assessment and Plan Final Anesthetic Review Family History of Problems with Anesthesia: No History of Problems with Anesthesia: No Documented by User: Galen Tuttle MD 05/04/25 08:48 [facility] Past Medical History Medical History Trifascicular block HTN (hypertension) Renal cyst Hyperparathyroidism Lung nodule Barretts esophagus BPH (benign prostatic hyperplasia) Dyslipidemia Serum calcium elevated Chronic lower back pain Obesity Family History Family History Father ALS (amyotrophic lateral sclerosis) Dementia Mother High cholesterol HTN (hypertension) COPD (chronic obstructive pulmonary disease) Diverticulitis Maternal Grandmother Myocardial infarction Breast cancer Maternal Aunt Multiple sclerosis Paternal Aunt Multiple sclerosis Surgical History Surgical History History of sigmoidoscopy History of endoscopy Cyst of face Fusion of lumbar spine Social History Social History Household Members: Spouse Housing: House Do you presently have visiting nurse or other home services: No Alcohol intake: current Alcohol intake frequency: does not drink Patient Tobacco Use Status: Never used Tobacco e-Cigarette/Vaping Use: Never Used Second Hand Smoke Exposure: No Have you been hit, kicked, punched, or otherwise hurt by someone within the past year? If so, by whom?: No Are you DNR?: No Advance Directives: No Advance Directives Information Provided: Yes service: No Current occupational status: retired Cognitive needs: No Hearing needs: No Vision needs: No Meds Allergies Allergy/AdvReac Type Severity Reaction Status Date / Time penicillin V Allergy Severe Swelling Verified 02/10/25 11:04 pet dander Allergy Intermediate Itchy Eyes Uncoded 12/11/24 10:06 trees Allergy Intermediate Itching Uncoded 12/11/24 10:06 Exam Exam Date and Time: 05/04/2025 Airway Mallampati Class: III TM Dist: >3cm Neck ROM: Full Heart: rrr Lungs: ctab vesicular Assessment and Plan Assessment Anesthesia Assessment: Anesthesia Plan Discussed and Chart Reviewed Final Anesthetic Review NPO: Yes ASA Class: III Final Preanesthetic Review: No Changes in Pt Med Stat, Meds/Allgs Chart Reviewed, Consent Obtained/Reviewed and Anes Risks/Benef Reviewed Patient Risk: Low Procedure Risk: Low Anesthetic Plan Anesthetic Plan: GA Disposition: Standard PACU
[2025-04-30 13:47] VITALS: BMI 35.0
[2025-05-04] VITALS (28 sets, daily range): BP systolic 131–175; BP diastolic 62–100; PULSE 61–96; RESP 13–20; TEMP 35.7–36.9; O2SAT 94–99; BMI 36.4
[2025-05-04] MEDS: Lactated Ringers 1,000 ML 100 ML IVCONT ×2 (08:32→17:41)
--- NOTE | 2025-05-04 08:47 | MHC.SHP ---
Pre-Procedural Eval Section A - 24 Hr Update-Section A only Date of Service: 05/04/25 The patient is an INPATIENT: No Changes since office visit: No Cold of Flu in the past 2 weeks, No New Medical Problems, No Changes in Medication and No Patient answered all questions The patient has been examined within 24 hours of the surgical procedure. The History & Physical has been completed within 30 days and I have reviewed it.: No Section B - Complete if H&P > 30 days Chief Complaint: Benign prostatic hyperplasia with lower urinary Details of Present Illness: Progressive BPH with bladder stones Relevant Social History: None Present Medications: see Short Stay Collaborative assessment Medical History: No relevant PMH History of Previous Operations: Relevant previous surgery/procedure and date(s) Allergies: Allergies Allergy/AdvReac Type Severity Reaction Status Date / Time penicillin V Allergy Severe Swelling Verified 02/10/25 11:04 pet dander Allergy Intermediate Itchy Eyes Uncoded 12/11/24 10:06 trees Allergy Intermediate Itching Uncoded 12/11/24 10:06 Review of Systems Sugical H&P ROS: Negative: Constitution, Cardiovascular, Respiratory, Neurological, Psychiatric, Hem-Onc, Allergic/Immunologic, Gastrointestinal, Genitourinary, Musculoskeletal, Integumentary, Endocrine and Eyes/Ears/Nose/Throat Exam Surgical H&P Exam: Normal: HEENT, Normal: Heart, Normal: Lungs, Normal: Extremities, Normal: Abdomen, Normal: Skin and Normal: Neurological Plan Diagnosis/Plan: Unchanged (Cystoscopy, GreenLight laser prostate, holmium laser bladder stone) I have reviewed the history and physical and performed a pertinent physical examination on my patient. No changes have occurred unless specified. Time Spent With Patient Time: Total time managing care of this patient today ____ minutes.
--- NOTE | 2025-05-04 10:53 | W.PM.OPN ---
Operative Note Operative Note Date of Service: 05/04/25 Narrative: PreOperative Diagnosis: 1) Bladder outlet obstruction 2) bladder stones Post Operative Diagnosis: Above Procedure: 1) GreenLight Laser Enucleation of the prostate CPT 85438 2) laser of multiple bladder stones Surgeon: Dr Som Bobo Anesthesia: General History of bladder outlet obstruction. Proximally 2 years ago day who presented with recurrent urinary tract infections, hematuria and weakness of stream. That time been found to have an extremely large prostate approximately 200 g with bladder stones. He had undergone procedure with removal of 6 1 cm bladder stones as well as removal of the median lobe of his prostate. At that time the procedure had been halted prior to progression secondary to significant ooze from the inflamed bladder. He has had some recurrence of the symptoms. Not as bad as initially. Ultrasound shows a collection of small bladder stones. Prostate remains large. MRI from June estimates 200 g. Has been on finasteride and tamsulosin to maximize symptoms. Procedure: After informed consent was verified the patient was brought to the operating room and placed in a supine position. Anesthesia was administered per protocol. Patient was placed in modified dorsal lithotomy position and prepped and draped in a sterile fashion. Safety pause time-out was confirmed. Antibiotics have been given. A Twenty-four Spanish laser cystoscope was inserted per urethra. No abnormalities were found of the anterior and bulbar urethra. The prostatic urethra shows significant bilateral lobar hypertrophy. Minimal median lobe. Significant stone debris throughout the mucosa of the prostate. Within the bladder there was at least 5 0.5 cm stones. The bladder was examined and both ureteric orifices were seen in their normal positions away from the area of interest. Bladder trabeculation grade 2/3. Using the holmium laser fiber with 30 w total energy stones were broken into small pieces. Fifteen hertz. 7350 joules. The bladder stones were then washed from the bladder and sent for analysis. Approaching this large prostate with prior median lobe enucleation the goal was ablation of prostate tissue bilaterally. A GreenLight laser with attached pressure bag Normal Saline cooling irrigation was used. At initial setting of 80 jefferson incisions were made at the 5 and 7 o'clock position. The median lobe area was relatively free from tissue. Each of these incisions was used to start to undermined the respective lateral lobe. Once these areas were marked laser power was increased to 120 w. Once the median lobe area had been cleared, attention was directed to the lateral lobes. Starting with the patient's left lateral lobe. First the 05:00 o'clock groove was further developed. This was moved in the lateral direction to undermine the tissue on the lateral side running from the bladder neck to the prostate apex. The ureteric orifice was used to guide incisions. As these were large median lobes a decision was made to mostly concentrate on ablating the surface tissue. Running down to the apex of the prostate just lateral to the veru incision was marked up the right sidewall from the 07:00 to the 11 o'clock position. Subsequently the intervening tissue was ablated and enucleated. There was a significant amount of stone debris that was ingrown within the prostate mucosa. This debris caused laser interference and had to be scraped from the sidewall of the prostate. Resection was continued up to the 12 o'clock position. During this part of the procedure he was noted to be oozing from his prostate. This was similar that had happened originally. A single dose of tranexamic acid was given. He will be given an oral dose for 10 days afterwards to assist with healing. Once the right-hand side had been effectively ablated and enucleated the procedure was repeated on the left-hand side. Initial concentration on developing the 05:00 groove. Again we came back to the apex of the prostate at the veru and created a working incision up to approximately the 1 o'clock position. Then intervening tissue was removed. After the majority of tissue had been debulked remnant tissue was ablated with the side fire laser and the curve of the prostate followed up each side wall clearly defining the anterior remnant strip that remained between the 11 and 1 o'clock positions. In this case the anterior tissue protruded into the prostatic fossa and was partially ablated with the laser At completion debris and pieces of prostate were removed from the bladder with irrigation. Both ureteric orifices were reviewed again in shown to be patent in away from any areas of energy damage. The apical area was reviewed and any stray mucosal ooze was controlled. A 22 Spanish 30 cc balloon Greenwood catheter was placed into the bladder using a flexible stylet. Clear efflux was obtained upon irrigation with a Tamie piston syringe. 90 cc was placed in the balloon and gentle traction was placed. A snap was used to hold tension on the catheter to control bleeding during patient moved and transported. A drainage bag was placed. A belladonna and opiate suppository was placed in order to assist in postprocedure pain management. Once transportation is complete to the PACU the snap will be removed. The patient tolerated the procedure well, he was extubated in the operating and transferred in a stable condition to the recovery area. Total Power 204 kJ Lasing time 31:53 Pathology: Prostate tissue and bladder stones Drains: Greenwood catheter
[2025-05-04] MEDS: oxyCODONE HCl Immed Release 5 MG TABLET PO ×3 (11:15→23:33)
--- NOTE | 2025-05-04 17:14 | PHA.MEDREC ---
Addendum entered by Yolis Peter RPh 05/04/25 17:26: REVIEWED BY PHARMACIST Original Note: Pharmacy Consult ? Medication Reconciliation Pharmacy has completed the medication reconciliation. Spoke with pt and he confirmed his medications. Pt states he has been non compliant taking his Losartan nor Pravastatin and states he just started taking those again ~2 weeks ago.
[2025-05-05] MEDS: Lactated Ringers 1,000 ML 100 ML IVCONT (03:06)
[2025-05-05 03:48] VITALS: BP 167/89; PULSE 82; RESP 18; TEMP 36.2; O2SAT 97
[2025-05-05 07:27] VITALS: BP 167/92; PULSE 86; RESP 18; TEMP 36.7; O2SAT 98
--- NOTE | 2025-05-05 08:47 | HO.POSTANES ---
Post Anesthesia Evaluation Post Anesthesia Evaluation Date of Service: 05/05/25 Vital Signs: Vital Signs Temp Pulse Resp BP Pulse Ox O2 Del Method 05/05/25 07:27 98.1 F 86 18 167/92 H 98 Room Air 05/05/25 03:48 97.2 F 82 18 167/89 H 97 Room Air Anesthesia: General Mental Status: Awake Pain Control: Satisfactory Nausea/Vomiting: None Hydration: Adequate Anesthesia-Related Issues: No Anes. Related Issues
--- NOTE | 2025-05-05 08:49 | PM.UROPN ---
Subjective Subjective Date of Service: 05/05/25 Interval history: Postop day 1 CBI running Minimal clots on irrigation at bedside Diet advanced Having bladder spasm Oxybutynin ordered 2nd dose of tranexamic acid ordered Will remain overnight secondary to CBI Physical Exam Vital Signs: Vital Signs: Last Vital Signs Temp 98.1 F 05/05/25 07:27 Pulse 86 05/05/25 07:27 Resp 18 05/05/25 07:27 BP 167/92 H 05/05/25 07:27 Pulse Ox 98 05/05/25 07:27 O2 Del Method Room Air 05/05/25 07:27 O2 Flow Rate 2 05/04/25 19:37 BMI result Body Mass Index 36.4 Const: General: cooperative, healthy appearing, comfortable and no acute distress Orientation/consciousness: patient oriented x3 HEENT: Face and sinus: Yes normal facial exam Mouth: moist mucous membranes Neck: Neck: Yes normal visual inspection, Yes full ROM and Yes trachea midline Chest: Chest palpation & inspection: normal inspection of the chest Resp: Effort & Inspection: normal respiratory effort, able to speak in complete sentences and no respiratory distress GI: Inspection: Yes normal to inspection Back/Spine/Pelvis: Cervical Spine: normal cervical lordosis Thoracic/Lumbar Spine: thoracic and lumbar spine normal to inspection Skin: General skin exam: no rashes or lesions noted Neuro: General: patient oriented x3, gait normal, tone normal and moves all extremities Extrem: General: Yes normal to inspection and Yes capillary refill normal Progress Note: A&P Assessment and plan (1) BPH w urinary obs/LUTS: Status: Acute Plan Remain overnight with CBI Oxybutynin Tranexamic acid Time Spent With Patient Time: Total time managing care of this patient today ____ minutes.
[2025-05-05] MEDS: Tranexamic Acid 1,000 MG in 0.9 % Sodium Chloride 50 ML 360 MG IV (09:31)
[2025-05-05] MEDS: oxyBUTYnin chloride ER 5 MG TAB.ER.24 10 MG PO (09:31)
[2025-05-05] MEDS: oxyCODONE HCl Immed Release 5 MG TABLET PO ×2 (09:38→17:02)
--- NOTE | 2025-05-05 10:43 | MHC.CM.PN ---
PT LIVES WITH IS INDEPEDENT HAS A RIDE HOME DC PLAN HOME N/S
[2025-05-05 15:33] VITALS: BP 172/86; PULSE 92; RESP 14; TEMP 36.8; O2SAT 96
[2025-05-05] MEDS: 0.9 % Sodium Chloride Flush 3 ML SYRINGE IVFLUSH (16:55)
[2025-05-05 18:43] VITALS: BP 177/86
--- NOTE | 2025-05-05 18:45 | PC.NURSE ---
BP elevated,Dr. Bobo notified,Losartan ordered,will administer and monitor,patient asymptomatic
[2025-05-05 19:24] VITALS: BP 170/79; PULSE 91; RESP 18; TEMP 36.6; O2SAT 96
[2025-05-06] MEDS: oxyCODONE HCl Immed Release 5 MG TABLET PO ×5 (00:01→16:28)
[2025-05-06 03:27] VITALS: BP 128/67; PULSE 78; RESP 18; TEMP 36.6; O2SAT 96
[2025-05-06 07:15] VITALS: BP 146/69; PULSE 89; RESP 16; TEMP 36.6; O2SAT 97
[2025-05-06] MEDS: 0.9 % Sodium Chloride Flush 3 ML SYRINGE IVFLUSH ×2 (08:06→17:10)
[2025-05-06] MEDS: oxyBUTYnin chloride ER 5 MG TAB.ER.24 10 MG PO (12:38)
[2025-05-06 15:19] VITALS: BP 148/69; PULSE 97; RESP 14; TEMP 36.9; O2SAT 96
--- NOTE | 2025-05-06 15:25 | MHC.CM.PN ---
pt is not medically stable for dc dc plan remainsd home
[2025-05-06] MEDS: Opium/Belladonna 60/16.2 mg SUPP.RECT 1 SUPP PR (18:36)
[2025-05-06 19:11] VITALS: BP 142/72; PULSE 93; RESP 15; TEMP 36.9; O2SAT 95
--- NOTE | 2025-05-06 19:52 | PC.NURSE ---
Pt having frequent, painful bladder spasms. Hand irrigated x3 for shreds. Urine pink tinged with CBI running. Dr. Bobo in to see patient this evening. Belladona suppository ordered and given with some relief.
[2025-05-06] MEDS: oxyCODONE HCl Immed Release 5 MG TABLET 10 MG PO (21:33)
[2025-05-07] MEDS: oxyCODONE HCl Immed Release 5 MG TABLET 10 MG PO ×2 (01:35→05:59)
[2025-05-07 03:20] VITALS: BP 152/72; PULSE 88; RESP 18; TEMP 37.1; O2SAT 96
[2025-05-07 08:00] VITALS: BP 176/74; PULSE 82; RESP 18; TEMP 37; O2SAT 97
[2025-05-07] MEDS: 0.9 % Sodium Chloride Flush 3 ML SYRINGE IVFLUSH ×2 (08:19→16:13)
[2025-05-07] MEDS: oxyBUTYnin chloride ER 5 MG TAB.ER.24 10 MG PO (08:21)
--- NOTE | 2025-05-07 08:46 | PM.UROPN ---
Subjective Subjective Date of Service: 05/07/25 Interval history: Persistent hematuria following prostate procedure Something similar happened after the last procedure Irrigated out for clots this morning Continue CBI Third dose tranexamic acid Will need to stay overnight if continues to form this much clot Physical Exam Vital Signs: Vital Signs: Last Vital Signs Temp 98.6 F 05/07/25 08:00 Pulse 82 05/07/25 08:00 Resp 18 05/07/25 08:00 BP 176/74 H 05/07/25 08:00 Pulse Ox 97 05/07/25 08:00 O2 Del Method Room Air 05/07/25 08:00 O2 Flow Rate 2 05/04/25 19:37 BMI result Body Mass Index 36.4 Const: General: cooperative, healthy appearing, comfortable and no acute distress Orientation/consciousness: patient oriented x3 HEENT: Face and sinus: Yes normal facial exam Mouth: moist mucous membranes Neck: Neck: Yes normal visual inspection, Yes full ROM and Yes trachea midline Chest: Chest palpation & inspection: normal inspection of the chest Resp: Effort & Inspection: normal respiratory effort, able to speak in complete sentences and no respiratory distress GI: Inspection: Yes normal to inspection Back/Spine/Pelvis: Cervical Spine: normal cervical lordosis Thoracic/Lumbar Spine: thoracic and lumbar spine normal to inspection Skin: General skin exam: no rashes or lesions noted Neuro: General: patient oriented x3, tone normal and moves all extremities Extrem: General: Yes normal to inspection and Yes capillary refill normal Progress Note: A&P Assessment and plan (1) Bladder stones: Status: Acute (2) BPH w urinary obs/LUTS: Status: Acute (3) Gross hematuria: Status: Acute Plan Tranexamic acid Irrigate as needed Continue CBI to be reviewed at mid day Time Spent With Patient Time: Total time managing care of this patient today ____ minutes.
[2025-05-07] MEDS: Opium/Belladonna 60/16.2 mg SUPP.RECT 1 SUPP PR ×2 (09:11→19:38)
[2025-05-07 15:49] VITALS: BP 141/73; PULSE 98; RESP 18; TEMP 37.1; O2SAT 98
[2025-05-07 19:48] VITALS: BP 170/91; PULSE 106; RESP 18; TEMP 37.3; O2SAT 96
[2025-05-08] MEDS: oxyCODONE HCl Immed Release 5 MG TABLET 10 MG PO ×3 (00:01→13:14)
[2025-05-08] MEDS: 0.9 % Sodium Chloride Flush 3 ML SYRINGE IVFLUSH ×2 (00:02→07:37)
[2025-05-08 03:18] VITALS: BP 164/85; PULSE 97; RESP 18; TEMP 37.7; O2SAT 95
--- NOTE | 2025-05-08 04:54 | PC.NURSE ---
Pt seen on bed alert and oriented, c/o penile and lower abd pain, prn Oxycodone 10 mg po given, slept there after. AWaken early am and walked with staff along the hallway. also pt c/o bladder fullness all the time , Greenwood cath with concentrated urine dark orange, bladder scan done with zero result, pt was supported.
[2025-05-08] MEDS: oxyBUTYnin chloride ER 5 MG TAB.ER.24 10 MG PO (07:36)
[2025-05-08 07:40] VITALS: BP 176/80; PULSE 101; RESP 18; TEMP 36.9; O2SAT 96
--- NOTE | 2025-05-08 13:06 | PM.DS ---
DS: Providers Provider Date of Service: 05/04/25 Date of admission: 05/04/25 14:18 Date of discharge: 05/08/25 Primary care physician: OZ Devries DS: Diagnosis Discharge Diagnosis (1) Bladder stones: Status: Acute (2) BPH w urinary obs/LUTS: Status: Acute (3) Gross hematuria: Status: Acute DS: Summary Hospital Course Hospital Course: Admitted on 05/04 for GreenLight laser prostate, bladder stone removal. Persistent hematuria in recovery area. Admitted. CBI for 3 days. Administration of tranexamic acid. Bleeding eventually brought under control. Remained overnight to ensure stability. Greenwood catheter removed morning of discharge. Able to void. Tea-colored. We will continue to push fluids. Status at Discharge Functional status at discharge: independent ambulation Overall status at discharge: patient is back to baseline Time Attestation Total time managing care of this patient today: 15 mintues. Discharge Coordination Time (in mins): 10 Quality: Safe Use of Opioids Does Pt have an Active Cancer Diagnosis on the Problem List?: No Quality: Stroke Does the patient have a stroke diagnosis?: No Physical Exam Vital Signs: Vital Signs: Last Vital Signs Temp 98.4 F 05/08/25 07:40 Pulse 101 H 05/08/25 07:40 Resp 18 05/08/25 07:40 BP 176/80 H 05/08/25 07:40 Pulse Ox 96 05/08/25 07:40 O2 Del Method Room Air 05/08/25 07:40 O2 Flow Rate 2 05/04/25 19:37 BMI result Body Mass Index 36.4 DS: Data Data Completed and Pending Completed studies during hospitalization [Text1]: Pending at discharge 05/04/25 09:47 Surgical [PTH] Routine Discharge Plan Discharge Anticipated Discharge Date/Time: 05/08/25 15:05 Patient Disposition: Home, Self-Care Discharge Diagnosis: Persistent hematuria following prostate procedure Referrals: Hussein Stringer FNP-BC [Primary Care Provider, Internal Medicine] Discharge Medications: New tranexamic acid 650 mg tablet 650 mg PO DAILY 10 Days Qty: 10 0RF nitrofurantoin macrocrystal 100 mg capsule 100 mg PO BEDTIME 14 Days Qty: 14 0RF Rx Instructions: must administer with a meal/food Continued losartan 50 mg tablet 50 mg PO DAILY Qty: 90 1RF pravastatin 40 mg tablet 40 mg PO DAILY Qty: 90 1RF finasteride 5 mg tablet 5 mg PO DAILY 30 Days Qty: 30 1RF Discharge Orders: Discharge Order (Routine); Ordered 05/08/25 Ordered By: Som Bobo Diet: Advance to usual diet Activity on Discharge: As tolerated Print Language: Albanian Care Plan Goals: Prostate procedure Health Concerns: Prostate procedure Plan of Treatment: Prostate procedure Assessment: Prostate procedure
--- NOTE | 2025-05-08 13:08 | PM.UROPN ---
Subjective Subjective Date of Service: 05/08/25 Interval history: Seen this morning Minimal clots Greenwood catheter removed We will observe voiding over the next few hours A successful we will DC this afternoon Physical Exam Vital Signs: Vital Signs: Last Vital Signs Temp 98.4 F 05/08/25 07:40 Pulse 101 H 05/08/25 07:40 Resp 18 05/08/25 07:40 BP 176/80 H 05/08/25 07:40 Pulse Ox 96 05/08/25 07:40 O2 Del Method Room Air 05/08/25 07:40 O2 Flow Rate 2 05/04/25 19:37 BMI result Body Mass Index 36.4 Const: General: cooperative, healthy appearing, comfortable and no acute distress Orientation/consciousness: patient oriented x3 HEENT: Face and sinus: Yes normal facial exam Mouth: moist mucous membranes Neck: Neck: Yes normal visual inspection, Yes full ROM and Yes trachea midline Chest: Chest palpation & inspection: normal inspection of the chest Resp: Effort & Inspection: normal respiratory effort, able to speak in complete sentences and no respiratory distress GI: Inspection: Yes normal to inspection Back/Spine/Pelvis: Cervical Spine: normal cervical lordosis Thoracic/Lumbar Spine: thoracic and lumbar spine normal to inspection Skin: General skin exam: no rashes or lesions noted Neuro: General: patient oriented x3, tone normal and moves all extremities Extrem: General: Yes normal to inspection and Yes capillary refill normal Progress Note: A&P Assessment and plan (1) Nocturia more than twice per night: Status: Acute (2) BPH w urinary obs/LUTS: Status: Acute (3) Gross hematuria: Status: Acute Plan Discharge if stable voiding trial Time Spent With Patient Time: Total time managing care of this patient today ____ minutes. Progress Note: Quality Stroke Does the patient have a stroke diagnosis?: No
--- NOTE | 2025-05-08 13:10 | MHC.CM.PN ---
PT DCD HOME SELF CARE
== END 2025-05-08 14:45 | disposition home or self-care (01) | DRG 713 ==
LOC: HO.SSSA 16:19 → HO.S3 16:20
PROVIDERS: Admitting Provider Urology; PCP Nurse Practitioner Family; Visit Provider Urology
PROC: 0V508ZZ Destruction of Prostate, Via Natural or Artificial Opening Endoscopic (ICD-10-PCS; CPT 52648; principal; 2025-05-04 09:30)
PROC: 0TCB8ZZ Extirpation of Matter from Bladder, Via Natural or Artificial Opening Endoscopic (ICD-10-PCS; CPT 52352; 2025-05-04 09:30)
DX: N40.1 Benign prostatic hyperplasia with lower urinary tract symptoms (principal); N13.8 Other obstructive and reflux uropathy; N32.89 Other specified disorders of bladder; R31.0 Gross hematuria; N21.0 Calculus in bladder; Z87.440 Personal history of urinary (tract) infections; Z79.899 Other long term (current) drug therapy
CPT/HCPCS: 88300; 88305; J0131; J1100; J1171; J1453; J1956; J2003; J2151; J2250; J2405; J2704; J3010; J7120

== ENCOUNTER 2025-05-18 09:07 | Outpatient (REF) | payer MEDICARE, BC, SELFPAY ==
--- NOTE | ~2025-05-18 | XR_ITS ---
EXAMINATION: XR ABDOMEN 1 VIEW (KUB) HISTORY: N20.0 - Calculus of kidney COMPARISON: Comparison is made with the prior examination dated 06/15/2023. FINDINGS: Two supine views of the abdomen are submitted. The bowel gas pattern is unremarkable, without evidence of mechanical obstruction. There are calcifications in the pelvis measuring up to 5 mm on the right and 8 mm on the left which were not present on the prior study. These could be related to the distal ureters or bladder. No suspicious calcifications are identified in the upper abdomen. There are no abnormal soft tissue masses. A disc prosthesis is noted at the L5-S1 level. XR/XR KUB IMPRESSION: Calcifications in the pelvis as described. Exclusion from the urinary tract is not possible on the basis of this examination. If there is clinical concern for distal ureteral or bladder calculi, unenhanced CT could be performed. Electronically signed by: Edi Mccarthy MD 05/18/2025 11:09 AM PETR
[2025-05-18 13:38] LABS: Resp Syncy Virus RNA Qual PCR NEGATIVE (Negative); SARS COV2 PCR INHOUSE NEGATIVE (Negative)
== END 2025-05-18 09:08 | disposition home or self-care (01) ==
LOC: HO.HMGCX 09:07
PROVIDERS: PCP Nurse Practitioner Family; Visit Provider Physician Assistant Medical
DX: R05.1 Acute cough (principal); R09.89 Other specified symptoms and signs involving the circulatory and respiratory systems; N20.0 Calculus of kidney; N21.0 Calculus in bladder
CPT/HCPCS: 74018; 87637; 99212

== ENCOUNTER 2025-05-18 09:07 | Outpatient (AMB) | payer MEDICARE, BC, SELFPAY ==
[2025-05-18 09:24] VITALS: BP 150/88; PULSE 78; TEMP 36.6; O2SAT 95; BMI 36.9
--- NOTE | 2025-05-18 09:24 | AM.OFFWIN_ITS ---
Intake Vital Signs 05/18/25 09:24 Height 5 ft 9 in Weight 250 lb BMI 36.9 BP 150/88 H Blood Pressure Location Rt brachial Position Sitting Pulse 78 Pulse Source Pulse Oximeter Temp 97.8 F Temp Source Oral Pulse Oximetry (%) 95 Oxygen Delivery Method Room Air Intake Visit Reasons: EP Cough Intake Note: Patient presents c/o cough, wheezing, chest tightness x4 weeks. Patient Tobacco Use Status: Never used Tobacco Allergies penicillin V Allergy (Severe, Verified 05/18/25 09:29) Swelling pet dander Allergy (Intermediate, Uncoded 05/18/25 09:29) Itchy Eyes trees Allergy (Intermediate, Uncoded 05/18/25 09:29) Itching HPI HPI Comments History of Present Illness Details History - The patient is a 64-year-old individua l presenting with a cough. - The cough has persisted for about a mo nth and worsens when reclining, leading to prolonged coughing episodes. - The cough is primarily dry but occasio darien produces phlegm. - The patient has no history of smoking, COPD, or asthma but has a history of pulmonary nodules, which were stable upon previous evaluations. - The patient underwent bladder surgery recently and was discharged from the hospital 10 days ago. - There is no history of fever or recent exposure to infectious agents, but the patient engaged in painting activities over the summer and fall, which might have contributed to the cough. - The patient is currently taking Losart an for blood pressure management and has experienced some reflux, potentially exacerbated by frequent consumption of throat lozenges. - He denies sick contacts, recent travel , fever, chills, CP, SOB, abd pain, n/v/d. - He denies sore throat, ear pain, or MILES . Physical Exam General: Cooperative, healthy appearing, comfortable and no acute distress Orientation/consciousness: Patient oriented x3 Limitations: No limitations Head: Normal to inspection Ears: Hearing grossly normal bilaterally, external ears normal and TM's normal bilaterally Nose: Normal external nose present, normal nares present, and no nasal discharge present. Face and sinus: Sinuses nontender to palpation. Mouth: Normal oral and palatal mucosa present and moist mucous membranes noted. Throat: Tonsils normal. Uvula is midline. Posterior oropharynx with erythema and no exudates. Eyes: Appearance normal, both eyes and all related structures Neck: Normal visual inspection, full ROM. No lymphadenopathy noted. Respiratory: Clear to auscultation bilaterally. Normal respiratory effort, able to speak in complete sentences. No respiratory distress, not tachypneic, no tripod positioning and no use of accessory muscles. Cardiovascular: Regular rate and rhythm. Normal S1 and S2 Skin: No rashes or lesions noted Patient was informed and verbally consented to the use of an ambient scribe for clinic note documentation during this visit [facility] Medical History Trifascicular block HTN (hypertension) Renal cyst Hyperparathyroidism Lung nodule Barretts esophagus BPH (benign prostatic hyperplasia) Dyslipidemia Serum calcium elevated Chronic lower back pain Obesity Surgical History History of sigmoidoscopy History of endoscopy Cyst of face Fusion of lumbar spine Family History Father ALS (amyotrophic lateral sclerosis) Dementia Mother High cholesterol HTN (hypertension) COPD (chronic obstructive pulmonary disease) Diverticulitis Maternal Grandmother Myocardial infarction Breast cancer Maternal Aunt Multiple sclerosis Paternal Aunt Multiple sclerosis Social History Household Members: Family Housing: House Do you presently have visiting nurse or other home services: No Alcohol intake: current Alcohol intake frequency: does not drink Patient Tobacco Use Status: Never used Tobacco e-Cigarette/Vaping Use: Never Used Second Hand Smoke Exposure: No service: No Current occupational status: retired Cognitive needs: No Hearing needs: No Vision needs: No Review of Systems Const All systems reviewed & are unremarkable except as noted in HPI and below Physical Exam Vital Signs: Last Vital Signs Temp 97.8 F 05/18/25 09:24 Pulse 78 05/18/25 09:24 BP 150/88 H 05/18/25 09:24 Pulse Ox 95 05/18/25 09:24 Oxygen Delivery Method Room Air 05/18/25 09:24 BMI result Body Mass Index 36.9 Results Reviewed Results Reviewed: will review the xray in the office Assessment & Plan Assessment & Plan (1) Cough: Code(s): R05.9 - Cough, unspecified Qualifiers: Cough type: acute Qualified Code(s): R05.1 - Acute cough Plan Most likely URI vs CAP vs bronchitis vs viral illness plan - Plan includes a chest x-ray to evaluate for any underlying conditions such as pneumonia. - Initiation of a Z-Maurilio (azithromycin) to cover potential atypical pneumonia. - Prescription of cough suppressant pills to manage symptoms. - Use of an inhaler to help open airways and reduce coughing spasms. - Prednisone prescribed for a short course to reduce inflammation and calm the cough. - will call with the results - follow up with PCP Orders: Orders SARS-CoV2/FLU/RSV Today R09.89 - Other specified symptoms and signs involving the circulatory and respiratory systems Medications: New azithromycin For 250 mg dose pack: take 500 mg today (day 1), then 250 mg for 4 days (days 2-5) PO 6 tabs 0RF albuterol sulfate 90 mcg/actuation 2 puffs inhalation Q6H PRN 8.5 grams 0RF shortness of breath or wheezing or cough benzonatate 100 mg PO bid-tid PRN 21 caps 0RF Cough 7 days prednisone 40 mg (2 x 20 mg) PO DAILY 10 tabs 0RF 5 days Coding Level of Care Code Est Pt Level 4 (92209) Diagnoses Acute cough R05.1 Cough type: acute
--- OUTSIDE RECORDS SUMMARY | 2025-05-18 09:59 | XMS_ITS | Continuity of Care Document ---
Author Organization [facility] [address] [facility] [address] [place] [address] Phone [phone] Social History Type Date Description Comments Sex Male Sex Unknown Medical Devices Description No Information Available Encounters Description No Information Available Assessments Description No Information Available Plan of Treatment No Information Available Functional Status Description No Information Available Mental Status Description No Information Available Referrals Description No Information Available
--- OUTSIDE RECORDS SUMMARY | 2025-05-18 10:00 | XMS_ITS | Patient Health Record ---
Author Organization [facility] Address [address] [place] [address] Care Team Providers Care Gynaecological Oncologist Name Role Phone DAYNE IZQUIERDO Primary Care Provider Chava Blas Jr Unavailable [phone] Allergies Allergen (clinical drug ingredient) Drug/Non Drug Allergy documented on EMR Reaction Allergy Type Onset Date Status antibiotics (uncoded) Unknown Allergy Active corn,potatoes, tomatoes, trees, grass , dogs , cat (uncoded) Unknown Allergy Active enviromental (uncoded) Unknown Allergy Active Reason For Referral No Information Medications Medication SIG (Take, Route, Frequency, Duration) Notes Start Date End Date Status Apple Cider Vinegar Active Losartan Potassium A ctive Pravastatin Sodium 40 MG Tablet 1 tablet Orally Once a day Active MiraLax (colon prep) 17 GM/SCOOP Powder mixed with Gatorade or Crystal Light Orally begin at 5:00 p.m. the day before the procedure; Duration: 1 day 03/09/2021 Active Turmeric Active Immunizations Vaccine Route Administration Date Status Comme nts Influenza Unknown 03/09/2021 Refused Social History Social History Additional Details Category Social Info Options Details Miscellaneous: Marital status: Occupation: retired Problems Problem Type SNOMED Code ICD Code Onset Dates Problem Status W/U Status Risk Notes Problem Colon cancer screening (494633696) Colon cancer screening (Z12.11) Active confirmed Problem Periumbilical pain (134407428) Periumbilical pain (R10.33) Active confirmed Problem Castro's esophagus (137736943) 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) Active confirmed Problem Right upper quadrant pain (399348211) Right upper quadrant pain (R10.11) Active confirmed Problem Gastroesophageal reflux disease without esophagitis (729389187) Gastroesophageal reflux disease without esophagitis (K21.9) Active confirmed Problem Castro's esophagus (737500167) Barretts esophagus without dysplasia (K22.70) Active confirmed Problem Rectal pain (63355315) Rectal pain (K62.89) Active confirmed Problem Castro esophagus (505397570) Castro esophagus (K22.70) Active confirmed Plan Of Treatment Future Test Test Name Order Date FLEXIBLE SIGMOIDOSCOPY, DIAGNOSTIC 07/29 UPPER GI ENDOSCOPY 07/29/2015 UPPER GI ENDOSCOPY 12/06/2017 COLONOSCOPY 12/06/2017 UPPER GI ENDOSCOPY 03/09/2021 COLONOSCOPY 03/09/2021 Insurance Providers Payer Name Payer Address Payer Phone Subscriber Number Group Number Insured Name Patient Relationship to Insured Coverage Start Date Coverage End Date [facility] [id number] [place], [place] [id number] NATE RAHMAN Self - patient is the insured Medical (General) History Medical History History ICD Code hypertension hypercholesterolemia lung nodules prediabetic Hemachromatosis immune system disorder Chest pain Surgical History Surgery Date(Month/Year) anterior fusion 1997 laminectomy/diskectomy 1986
== END 2025-05-18 10:25 | disposition home or self-care (01) ==
PROVIDERS: PCP Nurse Practitioner Family; Visit Provider Physician Assistant Medical
DX: R05.1 Acute cough (principal)

== ENCOUNTER → 2025-05-18 10:33 | Outpatient (BNV) | payer MEDICARE, BC, SELFPAY | PROVIDERS: PCP Nurse Practitioner Family; Visit Provider Radiology Diagnostic Radiology | DX: N20.0 Calculus of kidney (principal) | CPT/HCPCS: 74018 ==

== ENCOUNTER 2025-05-22 11:35 | Outpatient (REF) | payer MEDICARE, BC, SELFPAY ==
--- NOTE | ~2025-05-22 | XR_ITS ---
EXAMINATION: XR CHEST CLINICAL INFORMATION: R05.9 - Cough, unspecified COMPARISON: 09/02/2018. TECHNIQUE: 2 views of the chest were obtained. FINDINGS: The cardiac, hilar, and mediastinal contours are normal. Aortic mural calcification. The lungs are clear bilaterally. There is no pneumothorax or pleural effusion. There is no focal osseous or soft tissue abnormality. XR/XR chest 2V IMPRESSION: No active pulmonary disease. Electronically signed by: Zeus Reilly MD 05/22/2025 12:20 PM EST
--- OUTSIDE RECORDS SUMMARY | 2025-05-22 11:40 | XMS_ITS | Patient Health Record ---
Author Organization [facility] Address [address] [place] [address] Care Team Providers Care Manufacturing Intern Name Role Phone DAYNE IZQUIERDO Primary Care Provider Chava Blas Jr Unavailable [phone] Allergies Allergen (clinical drug ingredient) Drug/Non Drug [...] Status Risk Notes Problem Colon cancer screening (297484337) Colon cancer screening (Z12.11) Active confirmed Problem Periumbilical pain (995607589) Periumbilical pain (R10.33) Active confirmed Problem Castro's esophagus (434784755) 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) Active confirmed Problem Right upper quadrant pain (089272494) Right upper quadrant pain (R10.11) Active confirmed Problem Gastroesophageal reflux disease without esophagitis (575265893) Gastroesophageal reflux disease without esophagitis (K21.9) Active confirmed Problem Castro's esophagus (937848103) Barretts esophagus without dysplasia (K22.70) Active confirmed Problem Rectal pain (33661697) Rectal pain (K62.89) Active confirmed Problem Castro esophagus (146103609) Castro esophagus (K22.70) Active confirmed Plan Of Treatment Future Test Test Name Order Date FLEXIBLE SIGMOIDOSCOPY, DIAGNOSTIC 07/29 UPPER GI ENDOSCOPY 07/29/2015 UPPER GI ENDOSCOPY 12/06/2017 COLONOSCOPY 12/06/2017 UPPER GI ENDOSCOPY 03/09/2021 COLONOSCOPY 03/09/2021 Insurance Providers Payer Name Payer Address Payer Phone Subscriber Number Group Number Insured Name Patient Relationship to Insured Coverage Start Date Coverage End Date [facility] [id number] [place], [place] [id number] NATE RAHMAN Self - patient is the insured Medical (General) History Medical History History ICD Code hypertension hypercholesterolemia lung nodules prediabetic Hemachromatosis immune system disorder Chest pain Surgical History Surgery Date(Month/Year) anterior fusion 1997 laminectomy/diskectomy 1986
--- OUTSIDE RECORDS SUMMARY | 2025-05-22 11:40 | XMS_ITS | Continuity of Care Document ---
Author Organization [facility] [address] [facility] [address] [place] [address] Phone [phone] Social History Type Date Description Comments Sex Male Sex Unknown Medical Devices Description No Information Available Encounters Description No Information Available Assessments Description No Information Available Plan of Treatment No Information Available Functional Status Description No Information Available Mental Status Description No Information Available Referrals Description No Information Available
[2025-05-22 14:22] LABS: Appearance Urine Turbid; Glucose Urine UA Negative (Negative); PH 5.5 (5.0-9.0); Specific Gravity - Urine 1.020 (1.005-1.025); UMIC TRIGGER UA YES
[2025-05-22 14:50] LABS: Other Crystals Urine Present
== END 2025-05-22 11:36 | disposition home or self-care (01) ==
LOC: HO.HMGCX 11:35
PROVIDERS: Absent Provider Family Medicine; PCP Nurse Practitioner Family; Visit Provider Urology
DX: R05.9 Cough, unspecified (principal); N39.0 Urinary tract infection, site not specified
CPT/HCPCS: 71046; 81001; 87086

== ENCOUNTER → 2025-05-22 12:06 | Outpatient (BNV) | payer MEDICARE, BC, SELFPAY | PROVIDERS: Absent Provider Family Medicine; PCP Nurse Practitioner Family; Visit Provider Radiology Diagnostic Radiology | DX: R05.9 Cough, unspecified (principal) | CPT/HCPCS: 71046 ==

== ENCOUNTER 2025-05-27 10:05 | Outpatient (REF) | payer MEDICARE, BC, SELFPAY ==
--- OUTSIDE RECORDS SUMMARY | 2025-05-27 12:02 | XMS_ITS | Patient Health Record ---
Author Organization [facility] Address [address] [place] [address] Care Team Providers Care Title Processor Name Role Phone DAYNE IZQUIERDO Primary Care Provider Chava Blas Jr Unavailable [phone] Allergies Allergen (clinical drug ingredient) Drug/Non Drug [...] Status Risk Notes Problem Colon cancer screening (021455128) Colon cancer screening (Z12.11) Active confirmed Problem Periumbilical pain (333504235) Periumbilical pain (R10.33) Active confirmed Problem Castro's esophagus (754952239) 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) Active confirmed Problem Right upper quadrant pain (758038614) Right upper quadrant pain (R10.11) Active confirmed Problem Gastroesophageal reflux disease without esophagitis (644811922) Gastroesophageal reflux disease without esophagitis (K21.9) Active confirmed Problem Castro's esophagus (404852318) Barretts esophagus without dysplasia (K22.70) Active confirmed Problem Rectal pain (34607492) Rectal pain (K62.89) Active confirmed Problem Castro esophagus (997704407) Castro esophagus (K22.70) Active confirmed Plan Of Treatment Future Test Test Name Order Date FLEXIBLE SIGMOIDOSCOPY, DIAGNOSTIC 07/29 UPPER GI ENDOSCOPY 07/29/2015 UPPER GI ENDOSCOPY 12/06/2017 COLONOSCOPY 12/06/2017 UPPER GI ENDOSCOPY 03/09/2021 COLONOSCOPY 03/09/2021 Insurance Providers Payer Name Payer Address Payer Phone Subscriber Number Group Number Insured Name Patient Relationship to Insured Coverage Start Date Coverage End Date [facility] [id number] [place], [place] [id number] NATE RAHMAN Self - patient is the insured Medical (General) History Medical History History ICD Code hypertension hypercholesterolemia lung nodules prediabetic Hemachromatosis immune system disorder Chest pain Surgical History Surgery Date(Month/Year) anterior fusion 1997 laminectomy/diskectomy 1986
== END 2025-05-27 10:06 | disposition home or self-care (01) ==
LOC: HO.LAB 10:05
PROVIDERS: PCP Nurse Practitioner Family; Visit Provider Physician Assistant
DX: R31.0 Gross hematuria (principal); N39.0 Urinary tract infection, site not specified; Z51.89 Encounter for other specified aftercare
CPT/HCPCS: 99212

== ENCOUNTER 2025-05-27 10:05 | Outpatient (AMB) | payer MEDICARE, BC, SELFPAY ==
--- NOTE | 2025-05-27 09:50 | AM.OFFWIN_ITS ---
Intake Vital Signs 05/27/25 10:07 Height 5 ft 9 in Weight 245 lb BMI 36.2 BP 148/80 H Blood Pressure Location Rt brachial Position Sitting Pulse 85 Pulse Source Pulse Oximeter Temp 97.6 F Temp Source Oral Pulse Oximetry (%) 97 Oxygen Delivery Method Room Air Intake Visit Reasons: HDF Intake Note: HDF Patient Tobacco Use Status: Never used Tobacco Allergies penicillin V Allergy (Severe, Verified 05/27/25 10:15) Swelling pet dander Allergy (Intermediate, Uncoded 05/27/25 10:15) Itchy Eyes trees Allergy (Intermediate, Uncoded 05/27/25 10:15) Itching Do you need a note to return to daycare/school/sports/work: No HPI HPI Comments History of Present Illness Details Patient is a 64-year-old male with a past medical history of prostatitis, chronic UTIs, left anterior fascicular block, HLD, uncontrolled HTN, recurrent headaches, nephrolithiasis and fatigue he presenting for a hospital discharge follow-up. Patient was admitted to [facility] on May 04 under the Urology Service for a green light laser prostate procedure and bladder stone removal. Post surgery, he had persistent hematuria so he was admitted. He had CBI for 3 days and was given tranexamic acid. H&H was not checked during the hospital stay. Bleeding was controlled and he had his [place] catheter removed and was discharged home on May 08. He was discharged on tranexamic acid 650 daily for 10 days as well as Macrobid 100 mg daily for 14 days. On May 22, he did have a UA done which showed 3+ blood. Today, the patient reports that the bleeding has never stopped and that the patient is still seeing a lot of blood in the urine, with urinalysis on the confirming blood. - The patient notes that there were bloo d clots for the first two weeks post- procedure, but none have been seen in the past week. - The patient has been in daily contact with the urologist, Dr. Bobo, who has stated the bleeding is normal. - Associated symptoms include significan t urinary frequency, occurring every 15 to 45 minutes, painful urination, and difficulty voiding, particularly at night. - The patient has a history of self-cath eterization, which was attempted once since the hospital discharge about 4-5 days ago with significant difficulty. - Due to the urinary frequency and pain, the patient self-initiated treatment with leftover amoxicillin-clavulanate 500/125 mg starting the day after Thanksgiving 05/23, which the patient is still taking. - The patient reports some fatigue but d enies any fevers. - This post-procedural course is similar to the patient's first GreenLight laser procedure, which also involved prolonged bleeding for several weeks before r esolving. - The patient completed courses of trane xamic acid and Macrobid as prescribed. - The patient is not on any blood thinne rs or aspirin or NSAIDS. Review of Systems - Constitutional: Reports some fatigue. - Denies fever. - Genitourinary: Reports persistent shivam s hematuria, urinary frequency every 15- 45 minutes, dysuria, and difficulty urinating. - Reports a history of self-catheterizat ion. - Denies lower abdominal pain, lower baltazar k pain, and visible blood clots for the past week. - Musculoskeletal: No complaints reporte d. All systems reviewed and are unremarkable except as noted in HPI Physical Exam General: Cooperative, healthy appearing, comfortable, no acute distress and well developed Orientation: Patient oriented x3 Limitations: No limitations Head: Normal to inspection Ears: Hearing grossly normal bilaterally Face and sinus: Normal facial exam Neck: Normal visual inspection and Yes full ROM Respiratory: Normal respiratory effort and able to speak in complete sentences. Skin: No rashes or lesions noted Neuro: Patient oriented x3 [facility] Medical History Trifascicular block HTN (hypertension) Renal cyst Hyperparathyroidism Lung nodule Barretts esophagus BPH (benign prostatic hyperplasia) Dyslipidemia Serum calcium elevated Chronic lower back pain Obesity Surgical History History of sigmoidoscopy History of endoscopy Cyst of face Fusion of lumbar spine Family History Father ALS (amyotrophic lateral sclerosis) Dementia Mother High cholesterol HTN (hypertension) COPD (chronic obstructive pulmonary disease) Diverticulitis Maternal Grandmother Myocardial infarction Breast cancer Maternal Aunt Multiple sclerosis Paternal Aunt Multiple sclerosis Social History Household Members: Family Housing: House Do you presently have visiting nurse or other home services: No Alcohol intake: current Alcohol intake frequency: does not drink Patient Tobacco Use Status: Never used Tobacco e-Cigarette/Vaping Use: Never Used Second Hand Smoke Exposure: No service: No Current occupational status: retired Cognitive needs: No Hearing needs: No Vision needs: No Physical Exam Vital Signs: Last Vital Signs Temp 97.6 F 05/27/25 10:07 Pulse 85 05/27/25 10:07 BP 148/80 H 05/27/25 10:07 Pulse Ox 97 05/27/25 10:07 Oxygen Delivery Method Room Air 05/27/25 10:07 BMI result Body Mass Index 36.2 Assessment & Plan Assessment & Plan (1) Hospital discharge follow-up: Code(s): Z51.89 - Encounter for other specified aftercare (2) Hematuria: Code(s): R31.9 - Hematuria, unspecified Qualifiers: Hematuria type: gross Qualified Code(s): R31.0 - Gross hematuria Plan Plan - A CBC will be ordered to assess for anemia due to prolonged blood loss, which is a concern given the patient's fatigue and [id number] blood pressure. - A urinalysis with culture will be ordered to evaluate for a urinary tract infection, given the symptoms of urinary frequency, pain, and history of self- catheterization. - The urine culture will help determine if the amoxicillin-clavulanate the patient is currently taking is the appropriate antibiotic for any potential infection. - The patient has been advised to provide the blood and urine samples at the lab in [place] today or tomorrow. - A provider will call the patient with lab results tomorrow. Patient was informed and verbally consented to the use of an ambient scribe for clinic note documentation during this visit. Orders: Orders Complete Blood Count Auto Diff Today R31.29 - Other microscopic hematuria Urine Culture Today N39.0 - Urinary tract infection, site not specified UA and rflx microscopic Today R35.0 - Frequency of micturition Coding Level of Care Code Est Pt Level 4 (88532) Diagnoses Hospital discharge follow-up Z51.89 Gross hematuria R31.0 Hematuria type: gross
[2025-05-27 10:07] VITALS: BP 148/80; PULSE 85; TEMP 36.4; O2SAT 97; BMI 36.2
--- OUTSIDE RECORDS SUMMARY | 2025-05-27 11:27 | XMS_ITS | Continuity of Care Document ---
Author Organization [facility] [address] [facility] [address] [place] [address] Phone [phone] Social History Type Date Description Comments Sex Male Sex Unknown Medical Devices Description No Information Available Encounters Description No Information Available Assessments Description No Information Available Plan of Treatment No Information Available Functional Status Description No Information Available Mental Status Description No Information Available Referrals Description No Information Available
== END 2025-05-27 12:14 | disposition home or self-care (01) ==
LOC: HO.HMCFMS 10:05
PROVIDERS: PCP Nurse Practitioner Family; Visit Provider Physician Assistant
DX: Z51.89 Encounter for other specified aftercare (principal); R31.0 Gross hematuria

== ENCOUNTER 2025-06-16 14:28 | Outpatient (AMB) | payer MEDICARE, BC, SELFPAY ==
--- NOTE | 2025-06-16 14:32 | MHC.OFFVIS ---
Intake Visit Reasons: Green light, f/u SET ( NOUA) Intake Note: Patient is present for Post Op Green light laser procedure Urology Medication:Finasteride Antibiotic Allergy:PENICILLIN Blood Thinner:NONE Marketing Intelligence Analyst Required: No Accompanied by: Self / Same As Patient Allergies penicillin V Allergy (Severe, Verified 05/27/25 10:15) Swelling pet dander Allergy (Intermediate, Uncoded 05/27/25 10:15) Itchy Eyes trees Allergy (Intermediate, Uncoded 05/27/25 10:15) Itching HPI Comments Details: Presley is a very pleasant male. He is seen for the following urologic conditions - lower urinary tract symptoms - nocturia - nephrolithiasis - renal cyst UA shows 2+ leuks and 2+ blood Specific gravity 1.025 Had undergone procedure for bladder stone removal and repeat prostate enlargement Have used tranexamic acid for bleeding as necessary Discussion about MRI - large prostate 190 g - tiny right posterolateral 4 mm PI-RADS 4 lesion Discussed clinical relevance of 4 mm possible lesion and positive predictive value of MRI Recommend continuing to follow PSA UA today negative nitrites, positive leukocyte Did go to [facility] for 2nd opinion They discussed prostate enucleation Prior Microgen confirms Staphylococcus epididymis - Likely biofilm related did discuss possible cystoscopy to examine bladder opening 09/15 methenamine with vitamin-C for suppression - had 2 subsequent UTIs - did not tolerate methenamine so stopped. GreenLight laser 06/16 with bladder stone removal Lower Urinary Tract Symptoms: Initial CT scan showing bladder stones with enlarged prostate 06/16 underwent laser of stones with partial laser of prostate GreenLight - median lobe removal Current visit is for further evaluation of lower urinary tract symptoms particularly weakness of stream and nocturia Current treatment includes tamsulosin Prior treatments include none. Prostate Symptom Score Mild (0-8), Bother 2, PVR runs in range of 50-100 cc Symptoms include weak stream, nocturia (>2), and are stable - nocturia RN weakness of stream improving PSA Mar 2016 1.5, 05/12 2.8, 05/14 2.1, 01/14 2.8 Imaging - 06/13 US prostate 120 g with bladder wall thickening Testing at next visit will include Prostate Symptom Score, uroflow. Treatment plan continue alpha-sammy Nephrolithiasis Asymptomatic Imaging - 06/13 renal ultrasound - multiple 5 mm stones on right side, left side with 5 cm renal cysts multiple - 12/14 renal ultrasound 5 mm stone left side, multiple bilateral cysts - 01/14 renal ultrasound no evidence of stones, multiple bilateral stable cysts - 02/15 renal u/s - multiple bilateral cysts PFSH Medical History Trifascicular block HTN (hypertension) Renal cyst Hyperparathyroidism Lung nodule Barretts esophagus BPH (benign prostatic hyperplasia) Dyslipidemia Serum calcium elevated Chronic lower back pain Obesity Surgical History History of sigmoidoscopy History of endoscopy Cyst of face Fusion of lumbar spine Family History Father ALS (amyotrophic lateral sclerosis) Dementia Mother High cholesterol HTN (hypertension) COPD (chronic obstructive pulmonary disease) Diverticulitis Maternal Grandmother Myocardial infarction Breast cancer Maternal Aunt Multiple sclerosis Paternal Aunt Multiple sclerosis Social History Household Members: Family Housing: House Do you presently have visiting nurse or other home services: No Alcohol intake: current Alcohol intake frequency: does not drink Patient Tobacco Use Status: Never used Tobacco e-Cigarette/Vaping Use: Never Used Second Hand Smoke Exposure: No service: No Current occupational status: retired Cognitive needs: No Hearing needs: No Vision needs: No Office Procedures Post Void Residual Post Residual Void Post Void Residual (PVR): 110 [id number] Void Residual by ultrasound Results AMB Urinalysis, Automated UA Leukoctes 125 Brandin/uL Last Edit by CORINA Winchester on 06/16/25 14:53 UA Nitrite Negative Last Edit by Yin Wagner CCM on 06/16/25 14:53 UA Urobilinogen 0.2 mg/dL Last Edit by Yin Wagner CCM on 06/16/25 14:53 UA Protein 100 mg/dL Last Edit by Yin Wagner CCM on 06/16/25 14:53 UA pH 6.0 Last Edit by Yin Wagner CCM on 06/16/25 14:53 UA Blood 200 Srikanth/uL Last Edit by Yin Wagner CCM on 06/16/25 14:53 UA Specific [place] 1.025 Last Edit by Yin Wagner CCM on 06/16/25 14:53 UA Ketone Negative Last Edit by CORINA Winchester on 06/16/25 14:53 UA Bilirubin 0 mg/dL Last Edit by CORINA Winchester on 06/16/25 14:53 UA Glucose 0 mg/dL Last Edit by CORINA Winchester on 06/16/25 14:53 Results Reviewed Results Reviewed: Laboratory Last Values Urine pH (Auto) 6.0 06/16/25 14:32 Specific [place] (Auto) 1.025 06/16/25 14:32 Urine Protein (Auto) 100 mg/dL 06/16/25 14:32 Glucose (UA)(Auto) 0 mg/dL 06/16/25 14:32 Urine Ketones (Auto) Negative 06/16/25 14:32 Urine Blood (Auto) 200 Srikanth/uL 06/16/25 14:32 Urine Nitrite (Auto) Negative 06/16/25 14:32 Urine Bilirubin (Auto) 0 mg/dL 06/16/25 14:32 Urine Urobilinogen (Auto) 0.2 mg/dL 06/16/25 14:32 Leukocyte Esterase (Auto) 125 Brandin/uL 06/16/25 14:32 Assessment & Plan Assessment & Plan Orders: Orders AMB Urinalysis Automated Today N13.8 - Other obstructive and reflux uropathy, N40.1 - Benign prostatic hyperplasia with lower urinary tract symptoms AMB Post Void Residual by ultrasound Today N40.1 - Benign prostatic hyperplasia with lower urinary tract symptoms Urine Culture Today R31.0 - Gross hematuria Coding CPT Codes Post Residual Void - PVR CPT Code: 13125-Kcpe Void Residual by ultrasound ([id number])
--- OUTSIDE RECORDS SUMMARY | 2025-06-16 15:44 | XMS_ITS | Continuity of Care Document ---
Author Organization [facility] [address] [place] [address] Phone [phone] Social History Type Date Description Comments Sex Male Sex Unknown Medical Devices Description No Information Available Encounters Description No Information Available Assessments Description No Information Available Plan of Treatment No Information Available Functional Status Description No Information Available Mental Status Description No Information Available Referrals Description No Information Available
--- OUTSIDE RECORDS SUMMARY | 2025-06-16 15:45 | XMS_ITS | Patient Health Record ---
Author Organization [facility] Address [address] [place] [id number] Care Team Providers Care Crew Leader Gluing Name Role Phone DAYNE IZQUIERDO Primary Care Provider Chava Blas Jr Unavailable [phone] Allergies Allergen (clinical drug ingredient) Drug/Non Drug [...] Status Risk Notes Problem Colon cancer screening (452344226) Colon cancer screening (Z12.11) Active confirmed Problem Periumbilical pain (656478871) Periumbilical pain (R10.33) Active confirmed Problem Castro's esophagus (636486192) 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) Active confirmed Problem Right upper quadrant pain (154977497) Right upper quadrant pain (R10.11) Active confirmed Problem Gastroesophageal reflux disease without esophagitis (235234330) Gastroesophageal reflux disease without esophagitis (K21.9) Active confirmed Problem Castro's esophagus (371599682) Barretts esophagus without dysplasia (K22.70) Active confirmed Problem Rectal pain (20388868) Rectal pain (K62.89) Active confirmed Problem Castro esophagus (638745066) Castro esophagus (K22.70) Active confirmed Plan Of Treatment Future Test Test Name Order Date FLEXIBLE SIGMOIDOSCOPY, DIAGNOSTIC 07/29 UPPER GI ENDOSCOPY 07/29/2015 UPPER GI ENDOSCOPY 12/06/2017 COLONOSCOPY 12/06/2017 UPPER GI ENDOSCOPY 03/09/2021 COLONOSCOPY 03/09/2021 Insurance Providers Payer Name Payer Address Payer Phone Subscriber Number Group Number Insured Name Patient Relationship to Insured Coverage Start Date Coverage End Date [facility] [id number] [place], [place] [id number] [phone] [id number] NATE RAHMAN Self - patient is the insured Medical (General) History Medical History History ICD Code hypertension hypercholesterolemia lung nodules prediabetic Hemachromatosis immune system disorder Chest pain Surgical History Surgery Date(Month/Year) anterior fusion 1997 laminectomy/diskectomy 1986
--- OUTSIDE RECORDS SUMMARY | 2025-06-16 15:45 | XMS_ITS | Clinical Summary ---
Author Organization [facility] Address [address] [place] [id number] Care Team Providers Care Form Setter Steel Pan Forms Name Role Phone Hussein Stringer NP Primary Care Provider + Allergies No known active allergies Medications pravastatin (PRAVACHOL) 40 MG tablet 1 tablet Orally Once a day Active losartan (COZAAR) 50 MG tablet Take 1 tablet (50 mg total) by mouth. 04/18/2021 Active Family History Medical History Relation Comments Prostate cancer Father Kidney cancer Neg Hx Relation Status Comments Father Social History Tobacco Use Types Packs/Day Years Used Date Smoking Tobacco: Never Smokeless Tobacco: Never Tobacco Cessation:Counseling Given: Not Answered Alcohol Use Standard Drinks/Week Comments Not Currently 0 (1 standard drink = 0.6 oz pur e alcohol) Sex and Gender Information Value Date Recorded Sex Assigned at Not on file Legal Sex Male 9:22 AM EST Gender Identity Not on file Sexual Orientation Not on file Plan of Treatment Health Maintenance Due Date Last Done Comments Blood Pressure 1958 Lipid Panel 1958 PSA 1958 Prostate Cancer Screening 1958 SDM 1958 Depression Screening 1970 Hepatitis C Screening 1976 CT Colonography 2003 Colonoscopy 2003 Colorectal Cancer Screening 2003 FIT 2003 FOBT 2003 Multitarget Stool DNA (Cologuard) 2003 Sigmoidoscopy 2003 Pneumococcal Vaccine: 50+ Years (1 of 1 - PCV) 2008 Medicare Initial AWV [id number] 06/25/2024 COVID-19 Vaccine (4 - 2025-2 6 season) 2025 05/23/2021, 09/28/2020, 09/07/2020 Influenza Vaccine (#1) 2025 05/30/2017 DTaP,Tdap,and Td Vaccines (2 - Td or Tdap) 09/04/2028 09/04/2018 Zoster Vaccine Completed 06/26/2019, 12/30/2018 Meningococcal B Vaccines Aged Out No longer eligible based on patient's age to complete this topic Meningococcal Vaccines Aged Out No lo nger eligible based on patient's age to complete this topic Insurance MEDICARE [facility] MEDICARE [facility] Care Teams Form Setter Steel Pan Forms Relationship Specialty Start Date End Date Hussein Stringer NP [address] [place] [address] PCP - General Nurse Practitioner 07/29/24
== END 2025-06-16 15:44 | disposition home or self-care (01) ==
LOC: HO.HUSH 14:28
PROVIDERS: PCP Nurse Practitioner Family; Visit Provider Urology
DX: N40.1 Benign prostatic hyperplasia with lower urinary tract symptoms (principal); N13.8 Other obstructive and reflux uropathy

== ENCOUNTER 2025-06-16 14:28 | Outpatient (REF) | payer MEDICARE, BC, SELFPAY | END 2025-06-16 14:29 | disposition home or self-care (01) | LOC: HO.LAB 14:28 | PROVIDERS: PCP Nurse Practitioner Family; Visit Provider Urology | DX: N40.1 Benign prostatic hyperplasia with lower urinary tract symptoms (principal); N13.8 Other obstructive and reflux uropathy; R35.1 Nocturia; R39.11 Hesitancy of micturition; R31.0 Gross hematuria | CPT/HCPCS: 51798; 81003; 87086 ==